=== PATIENT | female | born 1960 | race Caucasian/White ===

== ENCOUNTER 2016-09-08 19:59 | Emergency (ER) | payer MEDICAID ==
[~2016-09-08] VITALS: Ht 170.2 cm; Wt 117.9 kg
[~2016-09-08 19:59] MED LIST: CYCL10TA9 PO; LVT.05T; MULT1TAB63; NAPR-243 PO; NF-CIT200; OMG1KC
[2016-09-08] MEDS ORDERED: CEPH-507 PO (20:08)
--- NOTE | 2016-09-08 20:09 | ED Integumentary General ---
General Chief Complaint: Bite-Animal/Human/Insect Stated Complaint: BUG BITES Source: patient Exam Limitations: no limitations History of Present Illness Time seen by provider: 20:06 Initial Comments To ER with a complaint of bug bite to the right side of the neck and the left radial side of the forearm. Began yesterday. She believes they are spider bites so she did not see anything bite her. They're intensely itchy. Timing/Duration: yesterday Severity: mild Allergies and Home Medications Allergies Coded Allergies: No Known Drug Allergies (Verified Allergy, Unknown, 09/17/08) Home Medications Calcium Citrate 1 Each Tablet (Reported) Cyclobenzaprine Hcl 10 Mg Tablet #14 1 EACH PO TID PRN Prescribed by: SHAKIRA LONDON MD on 06/03/09 1632 Levothyroxine Sodium 50 Mcg Tab (Reported) Multivitamins 1 Ea Tablet (Reported) Naproxen 500 Mg Tablet #14 1 EACH PO BID Prescribed by: SHAKIRA LONDON MD on 06/03/09 1632 [place] 3 Polyunsat Fatty Acids 1,000 Mg Cap (Reported) Constitutional: see HPINo chills, No fever EENTM: see HPI Respiratory: no symptoms reported Cardiovascular: no symptoms reported Genitourinary: no symptoms reported Musculoskeletal: no symptoms reported Skin: see HPI Psychiatric/Neurological: No Symptoms Reported Endocrine: No Symptoms Reported Past Ktzsuvv-Wpthly-Vxezur Hx Patient Social History Recent Foreign Travel: No Contact w/Someone Who Travel: No Recent Hopitalizations: No Seasonal Allergies Seasonal Allergies: No Surgeries HX Surgeries: Yes (RIGHT ANKLE) Surgeries: Thyroidectomy Respiratory Hx Respiratory Disorders: No Cardiovascular Hx Cardiac Disorders: No Neurological Hx Neurological Disorders: Yes Neurological Disorders: Cerebral Palsy Reproductive System Hx Reproductive Disorders: No Genitourinary Hx Genitourinary Disorders: No Gastrointestinal Hx Gastrointestinal Disorders: No Musculoskeletal Hx Musculoskeletal Disorders: Yes (CEREBRAL PALSY) Endocrine Hx Endocrine Disorders: Yes HEENT HX ENT Disorders: Yes Psychosocial Hx Psychiatric Problems: No Blood Transfusions Hx Blood Disorders: No Physical Exam Vital Signs Capillary Refill : General Appearance: WD/WN no apparent distress HEENT: PERRL/EOMI normal ENT inspection Neck: non-tender full range of motion Respiratory: no respiratory distress no accessory muscle use Neurologic/Psychiatric: alert normal mood/affect Skin: normal color warm/dry Skin Problem Location: other (7 cm area of light erythema with serous drainage to the radial side of the distal left forearm. Mild induration. No purulence or fluctuance. There is a well demarcated area to the underside of her neck) Skin Problem Character: erythema Departure Impression Impression: Primary Impression: Insect bite Qualified Code: W57.XXXA - Bitten or stung by nonvenomous insect and other nonvenomous arthropods, initial encounter Disposition: HOME, SELF-CARE Condition: Stable Departure-Patient Inst. Decision time for Depature: 20:08 Referrals: JEAN CARLOS SOTO MD (PCP/Family) Primary Care Physician Patient Instructions: Insect Bites and Stings (DC) Add. Discharge Instructions: 1. Antibiotics as directed 2. Use Benadryl as needed for itching 3. This should improve over the course of the next 3 days All discharge instructions reviewed with patient and/or family. Voiced understanding. Scripts Cephalexin (Keflex)500 Mg [id number] Mg PO Q8H #21 CAP Prov:RODRIGO CENTENO APRN 09/08/16 RODRIGO CENTENO APRN Sep 08, 2016 20:09
[2016-09-08] MEDS ORDERED: diphenhydrAMINE 50 MG/ML INJ (BENADRYL) IM ONE (20:15)
[2016-09-08] MEDS ORDERED: DEXAMETHASONE PF 10 MG/ML (DECADRON) VIAL IM ONE (20:15)
[2016-09-08 20:20] VITALS: BP 145/75
== END 2016-09-08 20:21 | disposition home or self-care (01) ==
LOC: EDUNIT# 19:59 → ER 20:00
DX: S50.862A Insect bite (nonvenomous) of left forearm, initial encounter (principal); S10.86XA Insect bite of other specified part of neck, initial encounter; G80.9 Cerebral palsy, unspecified; W57.XXXA Bitten or stung by nonvenomous insect and other nonvenomous arthropods, initial encounter; Y92.009 Unspecified place in unspecified non-institutional (private) residence as the place of occurrence of the external cause; Y99.8 Other external cause status
CPT/HCPCS: 96372; 99283

== ENCOUNTER 2016-10-10 22:38 | Emergency (ER) | payer MEDICAID ==
[~2016-10-10] VITALS: Ht 170.2 cm; Wt 117.9 kg
[~2016-10-10 22:38] MED LIST changes: +CEPH-507 PO
[2016-10-10] MEDS ORDERED: HYDR25TA4 PO (23:16)
[2016-10-10] MEDS ORDERED: NS IV 1000 ML 1,000 ML IV ONE (23:33)
[2016-10-10 23:54] LABS: BASOPHILS % (AUTO) 0 % (0-10); EOSINOPHILS % (AUTO) 0 % (0-10); LYMPHOCYTES # (AUTO) 0.5 X 10^3 (1.0-4.0); LYMPHOCYTES % (AUTO) 5 % (12-44); MEAN CORPUSCULAR HEMOGLOBIN 31 PG (25-34); MEAN CORPUSCULAR HGB CONC 36 G/DL (32-36); MEAN CORPUSCULAR VOLUME 87 FL (80-99); MEAN PLATELET VOLUME 9.5 FL (7.4-10.4); MONOCYTES # (AUTO) 0.4 X 10^3 (0.0-1.0); MONOCYTES % (AUTO) 4 % (0-12); NEUTROPHILS # (AUTO) 10.4 X 10^3 (1.8-7.8); NEUTROPHILS % (AUTO) 91 % (42-75); PLATELET COUNT 324 10^3/uL (130-400); RED BLOOD COUNT 5.07 10^6/uL (4.35-5.85); RED CELL DISTRIBUTION WIDTH 13.4 % (10.0-14.5); WHITE BLOOD COUNT 11.3 10^3/uL (4.3-11.0)
[2016-10-11 00:07] LABS: INR 0.9 (0.8-1.4); PROTHROMBIN TIME PATIENT 12.2 SEC (12.2-14.7)
[2016-10-11 00:11] LABS: BAND NEUTROPHILS 2 %; BASOPHILS % (MANUAL) 0 %; EOSINOPHILS % (MANUAL) 0 %; LYMPHOCYTES % (MANUAL) 2 %; NEUTROPHILS % (MANUAL) 93 %; REACTIVE LYMPHOCYTES 1 %
[2016-10-11 00:23] LABS: ALANINE AMINOTRANSFERASE 22 U/L (0-55); ALBUMIN 4.2 G/DL (3.2-4.5); ANION GAP 13 MMOL/L (5-14); ASPARTATE AMINO TRANSFERASE 20 U/L (5-34); BILIRUBIN,TOTAL 1.1 MG/DL (0.1-1.0); BLOOD UREA NITROGEN 10 MG/DL (7-18); BUN/CREATININE RATIO 12; CARBON DIOXIDE 21 MMOL/L (21-32); CHLORIDE 104 MMOL/L (98-107); CREATININE SERUM 0.83 MG/DL (0.60-1.30); GFR ESTIMATED > 60; GLUCOSE 126 MG/DL (70-105); POTASSIUM 3.4 MMOL/L (3.6-5.0); SODIUM 138 MMOL/L (135-145); TOTAL PROTEIN 7.4 G/DL (6.4-8.2)
[2016-10-11] MEDS ORDERED: KETOROLAC 30 MG/ML VIAL IVP ONE (01:00)
[2016-10-11] MEDS ORDERED: ONDANSETRON 4 MG/2 ML (SDV) Z0FRAN IVP ONE (01:00)
[2016-10-11 01:07] LABS: BILIRUBIN,URINE NEGATIVE (NEGATIVE); KETONES,URINE 1+ (NEGATIVE); LEUKOCYTE ESTERASE ,URINE 1+ (NEGATIVE); NITRITE,URINE NEGATIVE (NEGATIVE); PH,URINE 7 (5-9); PROTEIN,URINE 3+ (NEGATIVE); UROBILINOGEN,URINE NORMAL (NORMAL)
[2016-10-11 01:14] LABS: WBC,URINE 0-2 /HPF
[2016-10-11] MEDS ORDERED: NS IV 500 ML 500 ML IV ONE (01:31)
[2016-10-11] MEDS ORDERED: RX-ONDANSETRON 4 MG ODT (ZOFRAN) PPK #4 PO STA (01:31)
[2016-10-11] MEDS ORDERED: ONDA4TAB8 SL (01:41)
--- NOTE | 2016-10-11 01:42 | ED General ---
General Chief Complaint: Cough/Cold/Flu Symptoms Stated Complaint: FLU Nursing Triage Note: C/O COUGH, INTERMITTANT FEVER, NAUSEA/VOMITTING X1 WEEK. Nursing Sepsis Screen: No Definite Risk Source of Information: Patient Exam Limitations: No Limitations History of Present Illness Time Seen by Provider: 23:26 Initial Comments This 56-year-old woman presents to the emergency room with acute illness for greater than one week. Symptoms include vomiting, myalgia, cough, fever, and intermittent blurry vision. She is noted to be tachycardic with heart rate in the 120s on assessment. Patient has been taking only NyQuil at home. Allergies and Home Medications Allergies Coded Allergies: No Known Drug Allergies (Verified Allergy, Unknown, 09/17/08) Home Medications Hydrochlorothiazide 25 Mg Tablet, 1 TAB PO UD, #90 (Reported) Levothyroxine Sodium 50 Mcg Tab, (Reported) Ondansetron 4 Mg Tab.rapdis, 4 MG SL Q4H PRN for NAUSEA/VOMITING, #10 Prescribed by: SINAN VILLEGAS on 10/11/16 0141 Constitutional: see HPI EENTM: no symptoms reported Respiratory: see HPI Cardiovascular: see HPI Gastrointestinal: see HPI Genitourinary: no symptoms reported : No Musculoskeletal: no symptoms reported Skin: no symptoms reported Psychiatric/Neurological: See HPI Hematologic/Lymphatic: No Symptoms Reported Past Tdwqkog-Jsqrzk-Qfjgpu Hx Patient Social History Alcohol Use: Denies Use Recreational Drug Use: No Smoking Status: Never a Smoker 2nd Hand Smoke Exposure: No Recent Foreign Travel: No Contact w/Someone Who Travel: No Recent Infectious Disease Expo: No Recent Hopitalizations: No Seasonal Allergies Seasonal Allergies: No Surgeries HX Surgeries: Yes (RIGHT ANKLE) Surgeries: Thyroidectomy Respiratory Hx Respiratory Disorders: No Cardiovascular Hx Cardiac Disorders: No Neurological Hx Neurological Disorders: Yes Neurological Disorders: Cerebral Palsy Reproductive System Hx Reproductive Disorders: No Genitourinary Hx Genitourinary Disorders: No Gastrointestinal Hx Gastrointestinal Disorders: No Musculoskeletal Hx Musculoskeletal Disorders: Yes (CEREBRAL PALSY) Endocrine Hx Endocrine Disorders: Yes Endocrine Disorders: Hypothyroidsim HEENT HX ENT Disorders: Yes Cancer Hx Cancer: No Psychosocial Hx Psychiatric Problems: No Blood Transfusions Hx Blood Disorders: No Physical Exam Vital Signs Vital Sign - Last 12Hours 10/10/16 23:57 O2 Flow Rate 2.00 Capillary Refill : Less Than 3 Seconds General Appearance: WD/WN, Mild Distress HEENT: PERRL/EOMI, TMs Normal, Normal ENT Inspection, Pharynx Normal Neck: Normal Inspection Respiratory: Lungs Clear, Normal Breath Sounds Cardiovascular: No Edema, No Murmur, Tachycardia Gastrointestinal: Normal Bowel Sounds, No Organomegaly, No Pulsatile Mass, Non Tender, Soft Extremity: Normal Inspection Neurologic/Psychiatric: Alert, Oriented x3, No Motor/Sensory Deficits, Normal Mood/Affect, pipe stem sawyer II-XII Norm as Tested, Other (Neurologic exam normal except for chronic deficits related to cerebral palsy) Skin: Normal Color, Warm/Dry Focused Exam Lactic Acid Level Progress/Results/Core Measures Results/Orders Lab Results Laboratory Tests Test 10/10/16 01:01 10/10/16 23:45 Range/Units Urine Color YELLOW Urine Clarity SLIGHTLY CLOUDY Urine pH 7 5-9 Urine Specific [place] 1.010 L 1.016-1.022 Urine Protein 3+ H NEGATIVE Urine Glucose (UA) NEGATIVE NEGATIVE Urine Ketones 1+ H NEGATIVE Urine Nitrite NEGATIVE NEGATIVE Urine Bilirubin NEGATIVE NEGATIVE Urine Urobilinogen NORMAL NORMAL MG/DL Urine Leukocyte Esterase 1+ H NEGATIVE Urine RBC (Auto) 2+ H NEGATIVE Urine RBC 0-2 /HPF Urine WBC 0-2 /HPF Urine Squamous Epithelial Cells 10-25 H /HPF Urine Crystals NONE /LPF Urine Bacteria MODERATE H /HPF Urine Casts PRESENT /LPF Urine Hyaline Casts 5-10 H /LPF Urine Mucus MODERATE H /LPF Urine Culture Indicated YES White Blood Count 11.3 H 4.3-11.0 10^3/uL Red Blood Count 5.07 4.35-5.85 10^6/uL Hemoglobin 15.6 11.5-16.0 G/DL Hematocrit 44 35-52 % Mean Corpuscular Volume 87 80-99 FL Mean Corpuscular Hemoglobin 31 25-34 PG Mean Corpuscular Hemoglobin Concent 36 32-36 G/DL Red Cell Distribution Width 13.4 10.0-14.5 % Platelet Count 324 130-400 10^3/uL Mean Platelet Volume 9.5 7.4-10.4 FL Neutrophils (%) (Auto) 91 H 42-75 % Lymphocytes (%) (Auto) 5 L 12-44 % Monocytes (%) (Auto) 4 0-12 % Eosinophils (%) (Auto) 0 0-10 % Basophils (%) (Auto) 0 0-10 % Neutrophils # (Auto) 10.4 H 1.8-7.8 X 10^3 Lymphocytes # (Auto) 0.5 L 1.0-4.0 X 10^3 Monocytes # (Auto) 0.4 0.0-1.0 X 10^3 Eosinophils # (Auto) 0.0 0.0-0.3 10^3/uL Basophils # (Auto) 0.0 0.0-0.1 10^3/uL Neutrophils % (Manual) 93 % Lymphocytes % (Manual) 2 % Monocytes % (Manual) 2 % Eosinophils % (Manual) 0 % Basophils % (Manual) 0 % Band Neutrophils 2 % Reactive Lymphocytes 1 % Blood Morphology Comment NORMAL Prothrombin Time 12.2 12.2-14.7 SEC INR Comment 0.9 0.8-1.4 Activated Partial Thromboplast Time 26 24-35 SEC Sodium Level 138 135-145 MMOL/L Potassium Level 3.4 L 3.6-5.0 MMOL/L Chloride Level 104 98-107 MMOL/L Carbon Dioxide Level 21 21-32 MMOL/L Anion Gap 13 5-14 MMOL/L Blood Urea Nitrogen 10 7-18 MG/DL Creatinine 0.83 0.60-1.30 MG/DL Estimat Glomerular Filtration Rate > 60 BUN/Creatinine Ratio 12 Glucose Level 126 H 70-105 MG/DL Lactic Acid Level 1.27 0.50-2.00 MMOL/L Calcium Level 9.0 8.5-10.1 MG/DL Total Bilirubin 1.1 H 0.1-1.0 MG/DL Aspartate Amino Transf (AST/SGOT) 20 5-34 U/L Alanine Aminotransferase (ALT/SGPT) 22 0-55 U/L Alkaline Phosphatase 92 40-136 U/L Total Protein 7.4 6.4-8.2 G/DL Albumin 4.2 3.2-4.5 G/DL Micro Results Microbiology 10/10/16 Influenza Types A,B Antigen (JOELLE) - Final, Complete My Orders Orders - SINAN DE LA VEGA MD Cbc With Automated Diff (10/10/16 23:33) Comprehensive Metabolic Panel (10/10/16 23:33) Lactic Acid Analyzer (10/10/16 23:33) Blood Culture (10/10/16 23:33) Ua Culture If Indicated (10/10/16 23:33) Protime With Inr (4/2/17 23:33) Partial Thromboplastin Time (10/10/16 23:33) O2 (10/10/16 23:33) Saline Lock/Iv-Start (10/10/16 23:33) Vital Signs Adult Sepsis Patie Q1HR (10/10/16 23:33) Remove Rings In Anticipation O (10/10/16 23:33) Influenza A And B Antigens (10/10/16 23:33) Ns Iv 1000 Ml (Sodium Chloride 0.9%) (10/10/16 23:33) Manual Differential (10/10/16 23:45) Chest Pa/Lat (2 View) (10/11/16 00:01) Ondansetron Injection (Zofran Injectio (10/11/16 01:00) Ketorolac Injection (Toradol Injection) (10/11/16 01:00) Urine Culture (10/10/16 01:01) Rx-Ondansetron Po (Rx-Zofran Po) (10/11/16 01:31) Ns Iv 500 Ml (Sodium Chloride 0.9%) (10/11/16 01:31) Potassium Chloride (Tablet) (Klor Con Ta (10/11/16 01:45) Medications Given in ED Current Medications Medications Dose Ordered Sig/Radha Route Start Time Stop Time Status Last Admin Dose Admin Ketorolac Tromethamine 30 mg ONCE ONCE IVP 10/11/16 01:00 10/11/16 01:01 DC 10/11/16 00:57 30 MG Ondansetron HCl 8 mg ONCE ONCE IVP 10/11/16 01:00 10/11/16 01:01 DC 10/11/16 00:57 8 MG Potassium Chloride 20 meq ONCE ONCE PO 10/11/16 01:45 10/11/16 01:46 DC 10/11/16 01:39 20 MEQ Sodium Chloride 500 ml @ 0 mls/hr Q0M ONCE IV 10/11/16 01:31 10/11/16 01:35 DC 10/11/16 01:39 0 MLS/HR Sodium Chloride 1,000 ml @ 0 mls/hr Q0M ONCE IV 10/10/16 23:33 10/10/16 23:36 DC 10/10/16 23:56 0 MLS/HR Vital Signs/I&O Vital Sign - Last 12Hours 10/10/16 10/10/16 10/10/16 10/11/16 23:17 23:17 23:57 02:17 Temp 98.3 97.7 Pulse 99 98 Resp 18 18 B/P (MAP) 133/97 Pulse Ox 95 97 99 O2 Delivery Room Air Room Air Nasal Cannula O2 Flow Rate 2.00 Blood Pressure Mean: 109 Progress Note : Progress Note Patient received 1500 mL saline bolus which improved her tachycardia. Pain was treated with Toradol with good results. Zofran was given for nausea via IV route and a take-home pack was dispensed. Patient was feeling much improved. Influenza screen was negative. Mild hypokalemia was replaced orally. Diagnostic Imaging Diagonstic Imaging: Xray Plain Films/CT/US/NM/MRI: chest Comments Chest x-ray viewed by me. Report not yet available. No acute abnormalities appreciated. Departure Impression Impression: Primary Impression: Influenza-like symptoms Additional Impression: Nausea and vomiting Qualified Codes: R11.2 - Nausea with vomiting, unspecified Disposition: HOME, SELF-CARE Condition: Improved Departure-Patient Inst. Decision time for Depature: 01:30 Referrals: JEAN CARLOS SOTO MD (PCP/Family) Primary Care Physician Patient Instructions: Nausea and Vomiting, Adult Add. Discharge Instructions: You may take ibuprofen up to 800 mg every 8 hours as needed for pain or fever. Add Tylenol up to 1000 mg every 6 hours as needed for additional pain or fever relief. Stay well-hydrated. Start with a clear liquid diet and gradually advance your diet with small quantities of bland food as tolerated. Use Zofran (ondansetron) dissolved under the tongue every 4 hours as needed for nausea. Follow-up with your primary care provider later this week. Return to the ER if symptoms worsen. All discharge instructions reviewed with patient and/or family. Voiced understanding. Scripts Ondansetron (Zofran Odt) 4 Mg Tab.rapdis 4 MG SL Q4H Y for NAUSEA/VOMITING, #10 TAB Prov: SINAN DE LA VEGA MD 10/11/16 SINAN DE LA VEGA MD Oct 11, 2016 01:42
[2016-10-11] MEDS ORDERED: KCL 10 MEQ TAB (MICRO K) PO ONE (01:45)
[2016-10-11 02:17] VITALS: BP 126/87
--- NOTE | 2016-10-11 07:04 | Diagnostic Imaging Report ---
INDICATION: Cough and congestion x1 week. TECHNIQUE: Two view chest 12:37 AM CORRELATION STUDY: 06/03/2009 FINDINGS: Heart size, mediastinum, and vasculature overall relatively stable. Lungs are clear. No infiltrate. Unchanged slight asymmetric elevation of the right hemidiaphragm. Mild multilevel degenerative changes of the thoracic spine. IMPRESSION: 1. No radiographic evidence for acute abnormality of the chest. Dictated by: Dictated on workstation # [id number]
--- OUTSIDE RECORDS SUMMARY | 2016-11-14 05:03 | XMS REPORT ---
Author Author JEAN CARLOS SOTO [facility] eClinicalWorks Address Unknown Phone Unavailable Care Team Providers Care Retread Supervisor Name Role Phone JEAN CARLOS SOTO CP Unavailable Allergies, Adverse Reactions, Alerts Substance Reaction Event Type N.K.D.A. Info Not Available Non Drug Allergy Problems Problem Type Condition Code Onset Dates Condition Status Problem Hypothyroidism E03.9 Active Problem Essential hypertension I10 Active Problem Obesity E66.9 Active Assessment Hypothyroidism E03.9 Active Problem Cerebral palsy G80.9 Active Assessment Essential hypertension I10 Active Medications Medication Code System Code Instructions Start Date End Date Status Dosage Levothyroxine Sodium NDC 93478646541 137 MCG Orally Once a day 1 tablet Hydrochlorothiazide NDC [address]-36 25 MG Orally Once a day Feb 12, 2016 1 tablet Potassium NDC 0 10 Orally qd Feb 12, 2016 1 Procedures Procedure Coding System Code Date VENIPUNCT, ROUTINE* CPT-4 35269 Feb 12, 2016 Office Visit, Est Pt., Level 3 CPT-4 18092 Feb 12, 2016 [facility] CPT-4 NOBLL Feb 12, 2016 Vital Signs Date/Time: Feb 12, 2016 Cardiac Monitoring Heart Rate 98 bpm Weight 272 lbs Height 66 in BMI 43.90 Index Blood Pressure Diastolic 84 mmHg Blood Pressure Systolic 132 mmHg Results No Known Results Summary Purpose eClinicalWorks Submission
--- OUTSIDE RECORDS SUMMARY | 2016-11-14 05:03 | XMS REPORT ---
Author Author PHYLLIS TIRADO [facility] eClinicalWorks Address Unknown Phone Unavailable Care Team Providers Care Ranch Cook Name Role Phone PHYLLIS TIRADO CP Unavailable Allergies No Known Allergies Problems Problem Type Condition Code Onset Dates Condition Status Problem Obesity E66.9 Active Problem Hypothyroidism E03.9 Active Problem Hypothyroidism, unspecified E03.9 Active Assessment Hypothyroidism, unspecified E03.9 Active Problem Essential hypertension I10 Active Problem Cerebral palsy G80.9 Active Medications No Known Medications Results No Known Results Summary Purpose eClinicalWorks Submission
--- OUTSIDE RECORDS SUMMARY | 2016-11-14 05:03 | XMS REPORT | Continuity of Care Document ---
Author Author [facility] Address Unknown Phone Unavailable Allergies Medications Problems Date Dx Coded Attending Type Code Diagnosis Diagnosed By 06/14/2012 WES ROQUE MD 244.9 HYPOTHYROIDISM 06/14/2012 WES ROQUE MD 278.00 OBESITY 06/14/2012 WES ROQUE MD 401.1 ESSENTIAL HYPERTENSION BENIGN 06/14/2012 WES ROQUE MD V76.12 Mammogram Screening 06/14/2012 JEAN CARLOS SOTO MD 244.9 HYPOTHYROIDISM 06/14/2012 JEAN CARLOS SOTO MD 278.00 OBESITY 06/14/2012 JEAN CARLOS SOTO MD 401.1 ESSENTIAL HYPERTENSION BENIGN 06/14/2012 JEAN CARLOS SOTO MD V76.12 Mammogram Screening 06/14/2012 244.9 HYPOTHYROIDISM 06/14/2012 278.00 OBESITY 06/14/2012 401.1 ESSENTIAL HYPERTENSION BENIGN 06/14/2012 V76.12 Mammogram Screening 06/14/2012 WES ROQUE MD 244.9 HYPOTHYROIDISM 06/14/2012 WES ROQUE MD 278.00 OBESITY 06/14/2012 WES ROQUE MD 401.1 ESSENTIAL HYPERTENSION BENIGN 06/14/2012 WES ROQUE MD V76.12 Mammogram Screening 06/14/2012 COONEY DO, TIM K 244.9 HYPOTHYROIDISM 06/14/2012 COONEY DO, TIM K 278.00 OBESITY 06/14/2012 COONEY DO, TIM K 401.1 ESSENTIAL HYPERTENSION BENIGN 06/14/2012 COONEY DO, TIM K V76.12 Mammogram Screening 06/14/2012 COONEY DO, TIM K 244.9 HYPOTHYROIDISM 06/14/2012 COONEY DO, TIM K 278.00 OBESITY 06/14/2012 COONEY DO, TIM K 401.1 ESSENTIAL HYPERTENSION BENIGN 06/14/2012 COONEY DO, TIM K V76.12 Mammogram Screening 06/27/2012 JEAN CARLOS SOTO MD 276.8 HYPOKALEMIA 06/27/2012 276.8 HYPOKALEMIA 06/27/2012 MYA KATZ, WES Pérez 276.8 HYPOKALEMIA 06/27/2012 COONEY BUTCH BRADYA K 276.8 HYPOKALEMIA 06/27/2012 COONEY DO TIM K 276.8 HYPOKALEMIA 10/30/2013 COONEY DO TIM K 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 10/30/2013 COONEY DO TIM K V70.0 EXAM - ROUTINE H&P 10/30/2013 COONEY DO TIM K V76.10 BREAST CANCER SCREENING 10/30/2013 COONEY DO TIM K V76.51 COLON CANCER SCREENING 10/30/2013 COONEY DO TIM K V82.81 SPECIAL SCREENING FOR OSTEOPOROSIS 10/30/2013 COONEY DO TIM K 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 10/30/2013 COONEY DO TIM K V70.0 EXAM - ROUTINE H&P 10/30/2013 COONEY DO TIM K V76.10 BREAST CANCER SCREENING 10/30/2013 COONEY DO TIM K V76.51 COLON CANCER SCREENING 10/30/2013 CONOEY DO TIM K V82.81 SPECIAL SCREENING FOR OSTEOPOROSIS 06/03/2014 BUTCH COONEY DOA K 704.00 ALOPECIA UNSPECIFIED 06/03/2014 BUTCH COONEY DOA K 780.4 DIZZINESS AND VERTIGO Procedures Code Description [place] [address] ROUTINE VENIPUNCTURE 06/15/2012 56152 MAMMOGRAM, SCREENING 06/15/2012 72345 A1C (IN-HOUSE) 02614 LIPID PANEL 06/15 38294 CBC 06/15/2012 72816 CMP 06/15/2012 [id number] GFR CALC (RESULT ONLY) 06/15/2012 76633 T4 06/16/2012 34892 TSH 06/16/2012 26946 T3 TOTAL 2011 47455 ROUTINE VENIPUNCTURE 06/27/2012 30947 BMP 06/27/2012 16916 MAGNESIUM 2011 [id number] GFR CALC (RESULT ONLY) 06/27/2012 44043 ROUTINE VENIPUNCTURE 09/28/2012 96755 BMP 09/29/2012 27739 MAGNESIUM 2012 [id number] GFR CALC (RESULT ONLY) 09/29/2012 88076 ROUTINE VENIPUNCTURE 06/03/2014 11134 CMP 06/03/2014 37606 LIPID PANEL 06/03 64797 TSH 06/03/2014 88268 CBC 06/03/2014 Results Encounters ACCT No. Visit Date/Time Discharge Status Pt. Type Provider Facility Loc./Unit Complaint [id number] 06/03/2014 09:52:00 06/03/2014 23: 59:59 CLS [place]patient TIM COONEY DO [id number] 10/30/2013 15:35:00 10/30/2013 23: 59:59 CLS Outpatient TIM COONEY DO [id number] 09/28/2012 16:49:00 09/28/2012 23: 59:59 CLS Outpatient WES ROQUE MD [id number] 06/27/2012 13:49:00 06/27/2012 23: 59:59 CLS Outpatient JEAN CARLOS SOTO MD [id number] 06/15/2012 08:24:00 06/15/2012 23: 59:59 CLS Outpatient WES ROQUE MD [id number] 06/14/2012 08:45:00 06/14/2012 23: 59:59 CLS Outpatient [id number] 06/14/2012 09:46:36 RECURRING
--- OUTSIDE RECORDS SUMMARY | 2016-11-14 05:04 | XMS REPORT ---
Author Author JEAN CARLOS SOTO Organization eClinicalWorks Address Unknown Phone Unavailable Care Team Providers Care Title Inspector Name Role Phone JEAN CARLOS SOTO CP Unavailable Allergies No Known Allergies Problems Problem Type Condition Code Onset Dates Condition Status Problem Hypothyroidism E03.9 Active Problem Essential hypertension I10 Active Problem Obesity E66.9 Active Problem Cerebral palsy G80.9 Active Medications No Known Medications Results No Known Results Summary Purpose eClinicalWorks Submission
--- OUTSIDE RECORDS SUMMARY | 2016-11-14 05:04 | XMS REPORT ---
Author Author PHYLLIS TIRADO [facility] eClinicalWorks Address Unknown Phone Unavailable Care Team Providers Care Hydrometallurgical Engineer Name Role Phone PHYLLIS TIRADO CP Unavailable Allergies, Adverse Reactions, Alerts Substance [...] Instructions Start Date End Date Status Dosage Cozaar [facility] [address]-62 25 MG Orally Once a day May 21, 2015 1 tablet Levothyroxine Sodium [facility] [address]-36 150 MCG Orally Once a day May 21, 2015 1 tablet Procedures Procedure Coding System Code Date ASSAY, TRIIODOTHYRONINE (T3) CPT-4 02666 May 21, 2015 ASSAY OF FREE THYROXINE CPT-4 68907 May 21, 2015 ASSAY THYROID STIM HORMONE CPT-4 67606 May 21, 2015 Office Visit, Est Pt., Level 3 CPT-4 03659 May 21, 2015 VENIPUNCT, ROUTINE* CPT-4 01634 May 21, 2015 Vital Signs Date/Time: May 21, 2015 Temperature 97.4 F Weight 264.8 lbs Height 66 in BMI 42.74 Index Blood Pressure Diastolic 108 mmHg Blood Pressure Systolic 142 mmHg Cardiac Monitoring Heart Rate 92 bpm Results Name Result Date Reference Range Unit Abnormality Flag ROUTINE VENIPUNCTURE T3 TOTAL Summary Purpose eClinicalWorks Submission
--- OUTSIDE RECORDS SUMMARY | 2016-11-14 05:04 | XMS REPORT ---
Author Author JEAN CARLOS SOTO Organization eClinicalWorks Address Unknown Phone Unavailable Care Team Providers Care Chemical Mixer Name Role Phone JEAN CARLOS SOTO CP Unavailable Allergies No Known Allergies Problems Problem Type Condition Code Onset Dates Condition Status Problem Hypothyroidism E03.9 Active Problem Essential hypertension I10 Active Problem Obesity E66.9 Active Problem Cerebral palsy G80.9 Active Medications No Known Medications Results No Known Results Summary Purpose eClinicalWorks Submission
--- OUTSIDE RECORDS SUMMARY | 2016-11-14 05:04 | XMS REPORT ---
Author Author JEAN CARLOS SOTO [facility] eClinicalWorks Address Unknown Phone Unavailable Care Team Providers Care Club Car Attendant Name Role Phone JEAN CARLOS SOTO CP Unavailable Allergies No Known Allergies Problems Problem Type Condition Code Onset Dates Condition Status Problem Hypothyroidism E03.9 Active Problem Essential hypertension I10 Active Problem Obesity E66.9 Active Problem Cerebral palsy G80.9 Active Medications Medication Code System Code Instructions Start Date End Date Status Dosage Levothyroxine Sodium [facility] [address]-36 150 MCG Orally every other day, alternate with 137 mcg Feb 13, 2016 1 tablet Levothyroxine Sodium [facility] 62823662877 137 MCG Orally every other day, alternate with the 150 mcg 1 tablet Results No Known Results Summary Purpose eClinicalWorks Submission
--- OUTSIDE RECORDS SUMMARY | 2016-11-14 05:04 | XMS REPORT ---
Author JEAN CARLOS Mcclellan [facility] eClinicalWorks Address Unknown Phone Unavailable Care Team Providers Care Fan Mail Editor Name Role Phone JEAN CARLOS SOTO CP Unavailable Allergies, Adverse Reactions, Alerts Substance Reaction Event Type N.K.D.A. Info Not Available Non Drug Allergy Problems Problem Type Condition Code Onset Dates Condition Status Assessment Hyperlipidemia, unspecified hyperlipidemia type E78.5 Active Problem Obesity E66.9 Active Problem Hypothyroidism E03.9 Active Problem Hyperlipidemia, unspecified hyperlipidemia type E78.5 Active Assessment Essential hypertension I10 Active Assessment Hypothyroidism E03.9 Active Problem Essential hypertension I10 Active Problem Cerebral palsy G80.9 Active Medications Medication Code System Code Instructions Start Date End Date Status Dosage Levothyroxine Sodium [facility] [address]-36 150 MCG Orally every other day, alternate with 137 mcg Feb 13, 2016 1 tablet Co Q 10 NDC 12362-31393 100 MG Orally Once a day 1 capsule with a meal Levothyroxine Sodium NDC 82380945862 137 MCG Orally every other day, alternate with the 150 mcg 1 tablet Potassium NDC 0 10 Orally qd Feb 12, 2016 1 Hydrochlorothiazide [facility] [address]-38 25 MG Orally Once a day Feb 12, 2016 1 tablet Procedures Procedure Coding System Code Date VENIPUNCT, ROUTINE* CPT-4 91872 May 21, 2016 Office Visit, Est Pt., Level 2 CPT-4 96656 May 21, 2016 LAB NOT BILLED BY [facility] CPT-4 NOBLL May 21, 2016 Vital Signs Date/Time: May 21, 2016 Cardiac Monitoring Heart Rate 84 bpm Weight 273.5 lbs Height 66 in BMI 44.14 Index Blood Pressure Diastolic 108 mmHg Blood Pressure Systolic 144 mmHg Results Name Result Date Reference Range Unit Abnormality Flag LIPID PANEL ----HDL Cholesterol 53 62746376 >39 mg/dL ----VLDL Cholesterol [place] 27 50815607 5-40 mg/dL ----LDL Cholesterol Calc 97 21904693 0-99 mg/dL ----Cholesterol, Total 177 91250483 100-199 mg/dL ----Triglycerides 135 47546336 0-149 mg/dL CMP ----Globulin, Total 2.4 20160521 1.5-4.5 g/dL ----eGFR If Africn Am 113 [id number] >59 mL/min/1.73 ----eGFR If NonAfricn Am 98 [id number] >59 mL/min/1.73 ----Albumin, Serum 4.3 20160521 3.5-5.5 g/dL ----Sodium, Serum 139 20160521 136-144 mmol/L ----Protein, Total, Serum 6.7 20160521 6.0-8.5 g/dL ----BUN/Creatinine Ratio 7 20160521 9-23 L ----Calcium, Serum 9.1 20160521 8.7-10.2 mg/dL ----AST (SGOT) 29 20160521 0-40 IU/L ----Glucose, Serum 109 20160521 65-99 mg/dL H ----Alkaline Phosphatase, S 82 20160521 39-117 IU/L ----Bilirubin, Total 0.7 20160521 0.0-1.2 mg/dL ----Creatinine, Serum 0.68 20160521 0.57-1.00 mg/dL ----A/G Ratio 1.8 20160521 1.1-2.5 ----BUN 5 20160521 6-24 mg/dL L ----Carbon Dioxide, Total 22 20160521 18-29 mmol/L ----ALT (SGPT) 39 20160521 0-32 IU/L H ----Potassium, Serum 4.2 20160521 3.5-5.2 mmol/L ----Chloride, Serum 102 20160521 97-106 mmol/L ROUTINE VENIPUNCTURE TSH ----TSH 0.276 57590059 0.450-4.500 uIU/mL L Summary Purpose eClinicalWorks Submission
--- OUTSIDE RECORDS SUMMARY | 2016-11-14 05:04 | XMS REPORT ---
Author Author JEAN CARLOS SOTO Organization eClinicalWorks Address Unknown Phone Unavailable Care Team Providers Care Manager Production Name Role Phone JEAN CARLOS SOTO CP Unavailable Allergies No Known Allergies Problems Problem Type Condition Code Onset Dates Condition Status Problem Hypothyroidism E03.9 Active Problem Essential hypertension I10 Active Problem Obesity E66.9 Active Problem Cerebral palsy G80.9 Active Medications Medication Code System Code Instructions Start Date End Date Status Dosage Hydrochlorothiazide [facility] [address]-56 25 MG Orally Once a day Feb 12, 2016 1 tablet Results No Known Results Summary Purpose eClinicalWorks Submission
== END 2016-10-11 02:15 | disposition home or self-care (01) ==
LOC: EDUNIT# 22:38 → ER 22:42
DX: J10.2 Influenza due to other identified influenza virus with gastrointestinal manifestations (principal); G80.9 Cerebral palsy, unspecified
CPT/HCPCS: 36415; 71020; 80053; 81000; 83605; 85007; 85027; 85610; 85730; 87040; 87088; 87804; 96361; 96374; 96375

== ENCOUNTER → 2017-04-27 | Outpatient (CLI) | payer MEDICAID ==
[~2017-04-27] MED LIST changes: +HYDR25TA4 PO; +ONDA4TAB8 SL
--- NOTE | 2017-04-27 18:02 | Diagnostic Imaging Report ---
PROCEDURE: US Thyroid. TECHNIQUE: Multiple real-time grayscale images were obtained of the thyroid in various projections. INDICATION: Thyromegaly. FINDINGS: The right thyroid lobe is 6.9 x 3.1 x 3 cm. The left lobe is 6.7 x 2.9 x 2.9 cm. There is heterogeneous thyroid parenchyma and mildly increased vascularity with no discrete focal mass. IMPRESSION: Heterogeneous slightly hypervascular enlarged thyroid gland. This could be a sequela of thyroiditis or related to multinodular goiter with no discrete dominant nodules. Dictated by: Dictated on workstation # [id number]
== END ==
LOC: RAD 14:41
PROVIDERS: ATTEND Nurse Practitioner Family
DX: E01.0 Iodine-deficiency related diffuse (endemic) goiter (principal)
CPT/HCPCS: 76536

== ENCOUNTER 2017-12-18 14:51 | Emergency (ER) | payer MEDICAID ==
[~2017-12-18] VITALS: Ht 170.2 cm; Wt 117.9 kg
--- OUTSIDE RECORDS SUMMARY | 2017-12-18 15:00 | XMS REPORT ---
Author Author MAYRA SANDERS [facility] Address [address] [place] [address] Care Team Providers Care Estimator Name Role Phone TOMMY MAYRA Unavailable PROBLEMS Type Condition ICD9-CM Code YCN00-CQ Code Onset Dates Condition Status SNOMED Code Problem History of goiter Z86.39 Active 6291637 Problem History of hypokalemia Z86.39 Active 34875574 Problem Cerebral palsy G80.9 Active 830421638 Problem Elevated TSH R94.6 Active 571295167 Problem Hypothyroidism E03.9 Active 80772788 Problem Essential hypertension I10 Active 72571072 ALLERGIES No Information ENCOUNTERS Encounter Location Date Diagnosis [place] [id number] [place] [address] November, Hypothyroidism E03.9 [facility] [id number] [place] [address] 7252 November, Essential hypertension I10 ; Hypothyroidism E03.9 ; History of hypokalemia Z86.39 and BMI 45.0-49.9, adult Z68.42 [place] [id number] [place] [address] November, [place] [id number] [place] [address] 10033- 2245 Jun, [place] [address] [id number] [place] [address] 9177 May, History of hypokalemia Z86.39 [place] [id number] [place] [address] 83925- 5135 Apr, Hypothyroidism E03.9 [place] [address] [address] Apr, Essential hypertension I10 ; Hypothyroidism E03.9 ; Cerebral palsy G80.9 ; History of hypokalemia Z86.39 and History of goiter Z86.39 [facility] [id number] [place] [address] 51583- 6474 Dec, Hypothyroidism E03.9 [facility] [id number] [place] [address] 00151- 1202 Dec, Hypothyroidism, unspecified E03.9 [facility] [id number] [place] [address] 88620- 7067 13 Dec, 2016 Morbid obesity due to excess calories E66.01 ; Essential hypertension I10 ; Cerebral palsy G80.9 and Hyperlipidemia, unspecified hyperlipidemia type E78.5 [facility] [id number] [place] [address] 06353- 9036 Oct, Hyperlipidemia, unspecified hyperlipidemia type E78.5 [place] [id number] [place] [address] 34939- 9912 May, Essential hypertension I10 ; Hypothyroidism E03.9 and Hyperlipidemia, unspecified hyperlipidemia type E78.5 [facility] [id number] [place] [address] 65879- 2498 May, [facility] [id number] [place] [address] 83560- 9383 May, [facility] [id number] [place] [address] 20629- 2667 Feb, [facility] [id number] [place] [address] 33794- 3802 Feb, Essential hypertension I10 and Hypothyroidism E03.9 [facility] [id number] [place] [address] 11670- 1204 Jan, [facility] [id number] [place] [address] 47419- 6495 Jul, [facility] [id number] [place] [address] 00333- 1434 Jul, [facility] [address] [address] Jul, Essential hypertension I10 and Hypothyroidism E03.9 [facility] [id number] [address] May, Hypothyroidism, unspecified E03.9 [facility] [id number] [place] [address] 19165- 9741 May, Essential hypertension I10 and Hypothyroidism E03.9 [facility] [address] [place] [address] 58038- 0139 Feb, Routine general medical examination at [facility] facility V70.0 ; Essential hypertension, benign 401.1 and Unspecified hypothyroidism 244.9 [facility] [id number] [address] Jan, [facility] [id number] [place] [address] 39933- 6181 November, [facility] [id number] [place] [address] 59823- 1116 November, Hypothyroid 244.9 and Essential hypertension, benign 401.1 [facility] [address] [address] Oct, [facility] [address] [address] 4[address] Oct, [facility] [address] [address] 14[address] Jun, [facility] [address] [address] 8435 Jun, [facility] [id number] [address] 0165 May, [facility] [address] [address] 4146 May, [facility] [address] [id number] [place] [address] 3075 May, [facility] [place] [facility] [address] [id number] [place] [address]- 1080 May, [facility] [place] [facility] [address] [id number] [place] [address]- 5752 May, [facility] [place] [facility] [address] [id number] [place] [address]- 5961 May, [facility] [place] [facility] [address] [id number] [place] [address]- 2383 Apr, [facility] [place] [facility] [address] [id number] [place] [address]- 5976 Apr, [facility] [place] [facility] [address] [id number] [place] [address]- 6321 Oct, [facility] [place] [facility] [address] [id number] [place] [address]- 6144 Oct, [facility] [place] [facility] [address] [id number] [place] [address]- 6771 Sep, [facility] [place] [facility] [address] [id number] [place] [address]- 9624 Sep, [facility] [place] [facility] [address] [id number] [place] [address]- 5233 14 Aug, 2013 [facility] [place] [facility] [address] [id number] [place] [address] 1989 Aug, [facility] [place] [facility] [address] [id number] [place] [address] Jun, [facility] [place] [facility] [address] [id number] [place] [address]- 1494 Jun, [facility] [place] [facility] [address] [id number] [place] [address]- 9032 May, [facility] [place] [facility] [address] [id number] [place] [address]- 5944 May, [facility] [address] [id number] [place] [address]- 9992 18 Mar, 2013 [facility] [address] [id number] [place] [address]- 6316 Jan, [facility] [address] [facility] [id number] [place] [address]- 1592 Dec, [facility] [place] [facility] [address] [id number] [place] [address]- 2546 Oct, [facility] [address] [id number] [place] [address]- 9723 29 Sep, 2012 [facility] [address] [id number] [place] [address]- 5906 Sep, [facility] [address] [id number] [place] [address]- 4886 Sep, [facility] [address] [id number] [place] [address]- 6458 Sep, [facility] [address] [id number] [place] [address]- 7645 Sep, [facility] [address] [id number] [place] [address]- 9826 Jun, [facility] [address] [id number], [place] [address]- 4910 19 Jun, 2012 [facility] [place] [facility] [address] [id number], [place] [address]- 5841 18 Jun, 2012 [facility] [place] [facility] [address] [id number] [place] [address]- 2207 18 Jun, 2012 [facility] [place] [facility] [address] [id number] [place] [address]- 1972 10 Jun, 2012 [facility] [place] [facility] [address] [id number] [place] [address]- 5840 Jun, [facility] [place] [facility] [address] [facility] [id number] [place] [address]- 1506 Jun, [facility] [address] [facility] [id number], [place] [address]- 0732 Jun, [facility] [address] [facility] [id number] [address]- 2179 Jun, [facility] [address] [facility] [id number] [address] Jun, IMMUNIZATIONS No Known Immunizations SOCIAL HISTORY Never Assessed REASON FOR VISIT 90 day request PLAN OF CARE VITAL SIGNS MEDICATIONS Medication Instructions Dosage Frequency Start Date End Date Duration Status Levothyroxine Sodium 150 MCG Orally 90 days 1 tablet 30 Active RESULTS No Results PROCEDURES No Known procedures INSTRUCTIONS MEDICATIONS ADMINISTERED No Known Medications MEDICAL (GENERAL) HISTORY Type Description Date Medical History cerebral palsy- had spinal menningitis as a small child and then dx with CP Medical History Hypothyroidism Medical History hypertension Medical History hypokalemia Medical History obesity Medical History Abnormal thyroid ultrasound Surgical History parathyroidectomy 2007 Surgical History orthopedic surgery-Rt ankle fracture with hardware 2001 Hospitalization History Surgery(s) only
--- NOTE | 2017-12-18 15:44 | ED GU-Female ---
General Chief Complaint: -Female Stated Complaint: FEVER/GROIN PAIN/DARK URINE History of Present Illness Date Seen by Provider: Dec 18, 2017 Time Seen by Provider: 15:35 Initial Comments 77-year-old female presents for right groin pain and dark urine. She reports her symptoms have worsened over the last few days. She also has nausea related to this and has not been taking her routine home medications. Timing/Duration: yesterday, getting worse Severity/Quality: moderate Location: suprapubic, right flank Radiation: none Associated Symptoms: nausea/vomiting Allergies and Home Medications Allergies Coded Allergies: No Known Drug Allergies (Verified , 09/17/08) Home Medications Hydrochlorothiazide 25 Mg Tablet, 1 TAB PO UD, (Reported) Ondansetron 4 Mg Tab.rapdis, 4 MG SL Q4H PRN for NAUSEA/VOMITING Prescribed by: SINAN VILLEGAS on 10/11/16 0141 Phenazopyridine HCl 100 Mg Tablet, 100 MG PO Q8H Prescribed by: MELONY MALIK on 12/18/171718 Sulfamethoxazole/Trimethoprim 1 Each Tablet, 1 EACH PO BID Prescribed by: MELONY MALIK on 12/18/171718 Patient Home Medication List Home Medication List Reviewed: Yes Review of Systems Constitutional: no symptoms reported, see HPI Genitourinary: see HPI, dysuria, frequency, flank pain All Other Systemes Reviewed Negative Unless Noted: Yes Past Qwapuwh-Xdqksh-Xgstzx Hx Past Med/Social Hx: Reviewed Nursing Past Med/Soc Hx Patient Social History 2nd Hand Smoke Exposure: No Recent Foreign Travel: No Contact w/Someone Who Travel: No Recent Hopitalizations: No Seasonal Allergies Seasonal Allergies: No Past Medical History Thyroidectomy Cerebral Palsy Reproductive Disorders: No Hypothyroidsim Physical Exam Vital Signs Vital Signs - First Documented 12/18/17 15:17 Temp 97.6 Pulse 104 Resp 24 B/P (MAP) 182/96 (124) Pulse Ox 96 O2 Delivery Room Air Capillary Refill : General Appearance: WD/WN, no apparent distress HEENT: PERRL/EOMI, normal ENT inspection, TMs normal, pharynx normal Neck: non-tender, full range of motion, supple Cardiovascular: normal peripheral pulses, regular rate, rhythm Respiratory: chest non-tender, lungs clear, normal breath sounds Gastrointestinal: normal bowel sounds, soft, distended; No guarding, No rebound ; tenderness (suprapubic and right groin) Back: normal inspection; No no vertebral tenderness; CVA tenderness (R); No CVA tenderness (L) Extremities: normal range of motion, non-tender, normal inspection Neurologic/Psychiatric: no motor/sensory deficits, alert, normal mood/affect, oriented x 3 Skin: normal color, warm/dry Progress/Results/Core Measures Suspected Sepsis SIRS Temperature: Pulse: Respiratory Rate: Laboratory Tests 12/18/17 15:26: White Blood Count 6.6 Blood Pressure / Mean: Laboratory Tests 12/18/17 15:26: Creatinine 0.74, Platelet Count 164, Total Bilirubin 2.7H Results/Orders Lab Results Laboratory Tests Test 12/18/17 15:26 12/18/17 15:36 Range/Units White Blood Count 6.6 4.3-11.0 10^3/uL Red Blood Count 4.39 4.35-5.85 10^6/uL Hemoglobin 13.7 11.5-16.0 G/DL Hematocrit 38 35-52 % Mean Corpuscular Volume 86 80-99 FL Mean Corpuscular Hemoglobin 31 25-34 PG Mean Corpuscular Hemoglobin Concent 36 32-36 G/DL Red Cell Distribution Width 13.2 10.0-14.5 % Platelet Count 164 130-400 10^3/uL Mean Platelet Volume 9.6 7.4-10.4 FL Neutrophils (%) (Auto) 69 42-75 % Lymphocytes (%) (Auto) 15 12-44 % Monocytes (%) (Auto) 14 H 0-12 % Eosinophils (%) (Auto) 1 0-10 % Basophils (%) (Auto) 1 0-10 % Neutrophils # (Auto) 4.6 1.8-7.8 X 10^3 Lymphocytes # (Auto) 1.0 1.0-4.0 X 10^3 Monocytes # (Auto) 0.9 0.0-1.0 X 10^3 Eosinophils # (Auto) 0.1 0.0-0.3 10^3/uL Basophils # (Auto) 0.0 0.0-0.1 10^3/uL Sodium Level 137 135-145 MMOL/L Potassium Level 2.8 L 3.6-5.0 MMOL/L Chloride Level 98 98-107 MMOL/L Carbon Dioxide Level 24 21-32 MMOL/L Anion Gap 15 H 5-14 MMOL/L Blood Urea Nitrogen 7 7-18 MG/DL Creatinine 0.74 0.60-1.30 MG/DL Estimat Glomerular Filtration Rate > 60 BUN/Creatinine Ratio 9 Glucose Level 103 70-105 MG/DL Calcium Level 9.3 8.5-10.1 MG/DL Total Bilirubin 2.7 H 0.1-1.0 MG/DL Aspartate Amino Transf (AST/SGOT) 33 5-34 U/L Alanine Aminotransferase (ALT/SGPT) 48 0-55 U/L Alkaline Phosphatase 100 40-136 U/L Total Protein 7.6 6.4-8.2 GM/DL Albumin 4.0 3.2-4.5 GM/DL Urine Color YELLOW Urine Clarity CLEAR Urine pH 7 5-9 Urine Specific [place] 1.010 L 1.016-1.022 Urine Protein 2+ H NEGATIVE Urine Glucose (UA) NEGATIVE NEGATIVE Urine Ketones 3+ H NEGATIVE Urine Nitrite NEGATIVE NEGATIVE Urine Bilirubin NEGATIVE NEGATIVE Urine Urobilinogen 1 NORMAL MG/DL Urine Leukocyte Esterase 1+ H NEGATIVE Urine RBC (Auto) 4+ H NEGATIVE Urine RBC 2-5 H /HPF Urine WBC 5-10 H /HPF Urine Squamous Epithelial Cells 2-5 /HPF Urine Renal Epithelial Cells NONE /HPF Urine Crystals NONE /LPF Urine Bacteria TRACE /HPF Urine Casts NONE /LPF Urine Mucus NEGATIVE /LPF Urine Culture Indicated YES My Orders Orders - MELONY MALIK Ua Culture If Indicated (12/18/17 15:11) Cbc With Automated Diff (12/18/17 15:42) Comprehensive Metabolic Panel (12/18/17 15:42) Urine Culture (12/18/17 15:36) Ns Iv 1000 Ml (Sodi... W/Potassium Chlor (12/18/17 16:30) Phenazopyridine Tablet (Pyridium Tablet) (12/18/17 17:30) Sulfamethoxazole/Trimet Ds Tab (Bactrim (12/18/17 17:30) Medications Given in ED Current Medications Medications Dose Ordered Sig/Radha Route Start Time Stop Time Status Last Admin Dose Admin Phenazopyridine HCl 100 mg ONCE ONCE PO 12/18/17 17:30 12/18/17 17:31 DC 12/18/17 17:56 100 MG Trimethoprim/ Sulfamethoxazole 1 ea ONCE ONCE PO 12/18/17 17:30 12/18/17 17:31 DC 12/18/17 17:56 1 EA Vital Signs/I&O 12/18/17 12/18/17 15:17 18:02 Temp 97.6 97.6 Pulse 104 92 Resp 24 20 B/P (MAP) 182/96 (124) 120/90 (124) Pulse Ox 96 96 O2 Delivery Room Air Room Air Capillary Refill : Progress Note : Time: 15:35 Progress Note Initial evaluation completed, recommended labs. 1620 potassium 2.8, will give normal saline with 40 mEq of potassium and 1 L IV. 1720 will give Pyridium 100 mg for bladder spasms and pain. 1745 discharge instructions and return precautions reviewed with the patient. All questions answered. Departure Impression Primary Impression: Urinary tract infection Qualified Codes: N30.01 - Acute cystitis with hematuria Additional Impression: Hypokalemia Disposition: HOME, SELF-CARE Condition: Stable Departure-Patient Inst. Decision time for Depature: 17:40 Referrals: JEAN CARLOS SOTO MD (PCP/Family) Primary Care Physician Patient Instructions: Hypokalemia (DC), Urinary Tract Infection, Adult (DC) Add. Discharge Instructions: Take medication as prescribed. Resume taking your potassium 10 mEq, 1 tablet twice daily, Schedule follow-up with Dr. Mosquera for one week. Increase water intake, drink 1 bottle of water every 2 hours while awake. Empty bladder frequently. Return to emergency department for fever greater than 101 not relieved with Tylenol or ibuprofen, new problems or concerns. All discharge instructions reviewed with patient and/or family. Voiced understanding. Scripts Phenazopyridine HCl (Pyridium) 100 Mg Tablet 100 MG PO Q8H, #6 TAB 0 Refills Prov: MELONY MALIK 12/18/17 Sulfamethoxazole/Trimethoprim (Bactrim Ds Tablet) 1 Each Tablet 1 EACH PO BID, #14 TAB Prov: MELONY MALIK 12/18/17 Copy Copies To 1: JEAN CARLOS SOTO MD, AMY ARNP Dec 18, 2017 15:43
[2017-12-18 15:47] LABS: BASOPHILS % (AUTO) 1 % (0-10); EOSINOPHILS # (AUTO) 0.1 10^3/uL (0.0-0.3); EOSINOPHILS % (AUTO) 1 % (0-10); HEMATOCRIT 38 % (35-52); HEMOGLOBIN 13.7 G/DL (11.5-16.0); LYMPHOCYTES % (AUTO) 15 % (12-44); MEAN CORPUSCULAR HEMOGLOBIN 31 PG (25-34); MEAN CORPUSCULAR HGB CONC 36 G/DL (32-36); MEAN CORPUSCULAR VOLUME 86 FL (80-99); MEAN PLATELET VOLUME 9.6 FL (7.4-10.4); MONOCYTES # (AUTO) 0.9 X 10^3 (0.0-1.0); MONOCYTES % (AUTO) 14 % (0-12); NEUTROPHILS # (AUTO) 4.6 X 10^3 (1.8-7.8); NEUTROPHILS % (AUTO) 69 % (42-75); PLATELET COUNT 164 10^3/uL (130-400); RED BLOOD COUNT 4.39 10^6/uL (4.35-5.85); RED CELL DISTRIBUTION WIDTH 13.2 % (10.0-14.5); WHITE BLOOD COUNT 6.6 10^3/uL (4.3-11.0)
[2017-12-18 15:55] LABS: BILIRUBIN,URINE NEGATIVE (NEGATIVE); CLARITY,URINE CLEAR; COLOR,URINE YELLOW; GLUCOSE, URINE (UA) NEGATIVE (NEGATIVE); KETONES,URINE 3+ (NEGATIVE); LEUKOCYTE ESTERASE ,URINE 1+ (NEGATIVE); NITRITE,URINE NEGATIVE (NEGATIVE); PH,URINE 7 (5-9); PROTEIN,URINE 2+ (NEGATIVE); UROBILINOGEN,URINE 1 MG/DL (NORMAL)
[2017-12-18 16:01] LABS: ALANINE AMINOTRANSFERASE 48 U/L (0-55); ALKALINE PHOSPHATASE 100 U/L (40-136); BILIRUBIN,TOTAL 2.7 MG/DL (0.1-1.0); BUN/CREATININE RATIO 9; CALCIUM 9.3 MG/DL (8.5-10.1); CARBON DIOXIDE 24 MMOL/L (21-32); CHLORIDE 98 MMOL/L (98-107); CREATININE SERUM 0.74 MG/DL (0.60-1.30); GFR ESTIMATED > 60; GLUCOSE 103 MG/DL (70-105); POTASSIUM 2.8 MMOL/L (3.6-5.0); SODIUM 137 MMOL/L (135-145); TOTAL PROTEIN 7.6 GM/DL (6.4-8.2)
[2017-12-18 16:08] LABS: BACTERIA,URINE TRACE /HPF
[2017-12-18] MEDS ORDERED: POTASSIUM CHLORIDE INJ 40 MEQ in NS IV 1000 ML 1,000 ML IV SCH (16:30)
[2017-12-18] MEDS ORDERED: SULF1TAB35 PO (17:19)
[2017-12-18] MEDS ORDERED: PHEN-639 PO (17:19)
[2017-12-18] MEDS ORDERED: TRIM/SULFAMETH 160/800 (SEPTRA DS) TAB PO ONE (17:30)
[2017-12-18] MEDS ORDERED: PHENAZOPYRIDINE 100 MG (PYRIDIUM) TABLET PO ONE (17:30)
[2017-12-18 18:02] VITALS: BP 120/90
== END 2017-12-18 18:02 | disposition home or self-care (01) ==
LOC: EDUNIT# 14:51 → ER 14:54
DX: N39.0 Urinary tract infection, site not specified (principal); E87.6 Hypokalemia; E03.9 Hypothyroidism, unspecified; G80.9 Cerebral palsy, unspecified; Z90.89 Acquired absence of other organs
CPT/HCPCS: 36415; 80053; 81000; 85025; 87088; 96365

== ENCOUNTER 2018-02-21 16:49 | Emergency (ER) | payer MEDICAID ==
[~2018-02-21] VITALS: Ht 170.2 cm; Wt 127.0 kg
[~2018-02-21 16:49] MED LIST changes: +PHEN-639 PO; +SULF1TAB35 PO
[2018-02-21] MEDS ORDERED: RX-MUPIROCIN (BACTROBAN) 2% OINT 22 GM TUBE TOP STA (18:08)
[2018-02-21] MEDS ORDERED: SULF1TAB35 PO (18:14)
[2018-02-21] MEDS ORDERED: TETANUS,DIPTH,PERTUSS P/F (BOOSTRIX) 0.5 ML VIAL IM ONE (18:15)
--- NOTE | 2018-02-21 18:17 | ED Upper Extremity ---
General Chief Complaint: Laceration Stated Complaint: FINGERS LACERATION Nursing Triage Note: PT AMBULATES INTO THE ED WITH A TOWEL ON HER HAND. REPORTS CUTTING HER FINGER ON A MANDOLIN WHILE CHOPPING AN ONION Nursing Sepsis Screen: No Definite Risk Source: patient Exam Limitations: no limitations History of Present Illness Date Seen by Provider: Feb 21, 2018 Time Seen by Provider: 18:00 Initial Comments PT ARRIVES VIA POV C/O LACERATION TO RIGHT INDEX FINGER AROUND 1600 TODAY--CUT IT ON A MANDOLIN SLICER PT IS RIGHT HANDED NO PARESTHESIAS OR MOTOR DEFICITS LAST TETANUS SHOT IS UNKNOWN Allergies and Home Medications Allergies Coded Allergies: No Known Drug Allergies (Verified , 09/17/08) Home Medications Hydrochlorothiazide 25 Mg Tablet, 1 TAB PO UD, (Reported) Ondansetron 4 Mg Tab.rapdis, 4 MG SL Q4H PRN for NAUSEA/VOMITING Prescribed by: SINAN VILLEGAS on 10/11/16 0141 Phenazopyridine HCl 100 Mg Tablet, 100 MG PO Q8H Prescribed by: MELONY MALIK on 12/18/17 171 Sulfamethoxazole/Trimethoprim 1 Each Tablet, 1 EACH PO BID Prescribed by: MELONY MALIK on 12/18/17 1719 Sulfamethoxazole/Trimethoprim 1 Each Tablet, 1 EACH PO BID Prescribed by: ROMAN REYNOSO on 02/21/18 1814 Patient Home Medication List Home Medication List Reviewed: Yes Constitutional: no symptoms reported Musculoskeletal: see HPI Skin: see HPI Psychiatric/Neurological: No Symptoms Reported Past Ajtzvpr-Txrfyu-Vlhyfd Hx Patient Social History Type Used: Cigarettes 2nd Hand Smoke Exposure: No Recent Foreign Travel: No Contact w/Someone Who Travel: No Recent Infectious Disease Expo: No Recent Hopitalizations: No Seasonal Allergies Seasonal Allergies: No Past Medical History Surgeries: Yes (RIGHT ANKLE) Orthopedic, Thyroidectomy Respiratory: No Cardiac: Yes Chronic Edema/Swelling Neurological: Yes Cerebral Palsy : No Last Menstrual Period: Feb 25, 2017 Reproductive Disorders: No Genitourinary: Yes (occas urine incontinence hx) UTI-Chronic Gastrointestinal: No Musculoskeletal: Yes (CEREBRAL PALSY) Endocrine: Yes Hypothyroidsim HEENT: No Cancer: No Psychosocial: No Integumentary: No Blood Disorders: No Physical Exam Vital Signs Vital Signs - First Documented 02/21/18 18:00 Pulse 96 Resp 20 B/P (MAP) 148/87 (107) Pulse Ox 95 O2 Delivery Room Air Capillary Refill : Less Than 3 Seconds Height, Weight, BMI Height: 5'7.00" Weight: 280lbs. oz. 127.573101bm; BMI Method:Stated General Appearance: WD/WN, no apparent distress Hand: Right (INDEX FINGER PAD WITH < 1 CM SUPERFICIAL FLAP LACERATION--NEAR COMPLETE AVULSION. NO ACTIVE BLEEDING AT THIS TIME. DISTAL MOTOR/SENSORY/ VASCULAR INTACT. ) Neurologic/Tendon: normal sensation, normal motor functions, normal tendon functions Neurologic/Psychiatric: water analyst II-XII nml as tested, alert, normal mood/affect, oriented x 3 Skin: normal color, warm/dry, other ( ABOVE) Progress/Results/Core Measures Results/Orders My Orders Orders - ROMAN REYNOSO DO Dipht,Pertuss(Acell),Tet Adult (Boostrix (02/21/18 18:15) Rx-Mupirocin 2% Oint (Rx-Bactroban) (02/21/18 18:08) Wound Dressing-Ed (02/21/18 18:08) Vital Signs/I&O 02/21/18 18:00 Pulse 96 Resp 20 B/P (MAP) 148/87 (107) Pulse Ox 95 O2 Delivery Room Air Blood Pressure Mean: 107 Progress Progress Note : Progress Note WOUND IS SUPERFICIAL AND HAS NEAR-COMPLETE AVULSION--SMALL PEDICLE OF SKIN STILL ATTACHED--NO REPAIR REQUIRED NO ACTIVE BLEEDING Departure Impression Primary Impression: SUPERFICIAL LACERATION RIGHT INDEX FINGER Additional Impression: Rcwwglkorh-yjvkvmich-gqxksso (DPT) vaccination administered at current visit Disposition: 01 HOME, SELF-CARE Condition: Stable Departure-Patient Inst. Referrals: JEAN CARLOS SOTO MD (PCP/Family) Primary Care Physician Patient Instructions: Diphtheria and Tetanus Toxoids, and Acellular Pertussis Vaccine, Wound Care (DC) Add. Discharge Instructions: CLEAN WOUND TWICE A DAY WITH ANTIBACTERIAL SOAP AND WATER, APPLY ANTIBIOTIC OINTMENT AND FRESH DRESSING TWICE A DAY OTHERWISE DO NOT GET WET UNTIL SCAB IS FORMED TYLENOL AND MOTRIN NEEDED FOR PAIN FOLLOW UP WITH YOUR DR NEEDED All discharge instructions reviewed with patient and/or family. Voiced understanding. Scripts Sulfamethoxazole/Trimethoprim (Bactrim Ds Tablet) 1 Each Tablet 1 EACH PO BID, #20 TAB Prov: ROMAN REYNOSO DO 02/21/18 ROMAN REYNOSO DO Feb 21, 2018 18:17
[2018-02-21 19:06] VITALS: BP 129/104
== END 2018-02-21 19:06 | disposition home or self-care (01) ==
LOC: EDUNIT# 16:49 → ER 16:50
DX: S61.210A Laceration without foreign body of right index finger without damage to nail, initial encounter (principal); G80.9 Cerebral palsy, unspecified; E03.9 Hypothyroidism, unspecified; Z23 Encounter for immunization; Z87.440 Personal history of urinary (tract) infections; W27.8XXA Contact with other nonpowered hand tool, initial encounter
CPT/HCPCS: 90715; 99282

== ENCOUNTER 2019-09-11 21:05 | Emergency (ER) | payer MEDICAID ==
[~2019-09-11] VITALS: Ht 170.1 cm; Wt 111.1 kg
[2019-09-11 21:41] LABS: BASOPHILS % (AUTO) 0 % (0-10); EOSINOPHILS # (AUTO) 0.1 10^3/uL (0.0-0.3); EOSINOPHILS % (AUTO) 1 % (0-10); HEMATOCRIT 44 % (35-52); LYMPHOCYTES # (AUTO) 1.5 X 10^3 (1.0-4.0); LYMPHOCYTES % (AUTO) 15 % (12-44); MEAN CORPUSCULAR HEMOGLOBIN 30 PG (25-34); MEAN CORPUSCULAR HGB CONC 34 G/DL (32-36); MEAN CORPUSCULAR VOLUME 86 FL (80-99); MEAN PLATELET VOLUME 10.5 FL (7.4-10.4); MONOCYTES # (AUTO) 0.7 X 10^3 (0.0-1.0); MONOCYTES % (AUTO) 7 % (0-12); NEUTROPHILS # (AUTO) 7.4 X 10^3 (1.8-7.8); NEUTROPHILS % (AUTO) 76 % (42-75); PLATELET COUNT 356 10^3/uL (130-400); RED CELL DISTRIBUTION WIDTH 13.4 % (10.0-14.5); WHITE BLOOD COUNT 9.8 10^3/uL (4.3-11.0)
--- NOTE | 2019-09-11 21:47 | ED General ---
General Chief Complaint: General Problems/Pain Stated Complaint: JAW PAIN Source of Information: Patient Exam Limitations: No Limitations History of Present Illness Date Seen by Provider: Sep 11, 2019 Time Seen by Provider: 21:45 Initial Comments To ER with reports of left-sided jaw pain. 3 days ago she awakened with swelling and pain in the left side of her jaw and neck. She initially had some trouble swallowing, those troubles have subsided but she still has a bit of discomfort. No fevers or chills. Timing/Duration: 2-3 Days Severity: Moderate Associated Systoms: Denies Symptoms Allergies and Home Medications Allergies Coded Allergies: No Known Drug Allergies (Verified , 09/17/08) Home Medications Amoxicillin 500 Mg Capsule, 500 MG PO TID Prescribed by: RODRIGO CENTENO on 09/11/19 2200 Hydrochlorothiazide 25 Mg Tablet, 1 TAB PO UD, (Reported) Ondansetron 4 Mg Tab.rapdis, 4 MG SL Q4H PRN for NAUSEA/VOMITING Prescribed by: SINAN VILLEGAS on 10/11/16 0141 Phenazopyridine HCl 100 Mg Tablet, 100 MG PO Q8H Prescribed by: MELONY MALIK on 12/18/179 Sulfamethoxazole/Trimethoprim 1 Each Tablet, 1 EACH PO BID Prescribed by: MELONY MALIK on 12/18/171718 Sulfamethoxazole/Trimethoprim 1 Each Tablet, 1 EACH PO BID Prescribed by: ROMAN REYNOSO on 02/21/18 1814 Patient Home Medication List Home Medication List Reviewed: Yes Review of Systems Review of Systems Constitutional: see HPI; No chills, No fever EENTM: see HPI Respiratory: no symptoms reported; No cough, No dyspnea on exertion, No short of breath Cardiovascular: No chest pain, No palpitations Genitourinary: no symptoms reported Musculoskeletal: no symptoms reported Skin: no symptoms reported Psychiatric/Neurological: No Symptoms Reported Hematologic/Lymphatic: No Symptoms Reported Past Ocrdkzs-Ibumxz-Rhazbn Hx Patient Social History Type Used: Cigarettes 2nd Hand Smoke Exposure: No Recent Foreign Travel: No Contact w/Someone Who Travel: No Recent Hopitalizations: No Seasonal Allergies Seasonal Allergies: No Past Medical History Surgeries: Yes (RIGHT ANKLE) Orthopedic, Thyroidectomy Respiratory: No Cardiac: Yes Chronic Edema/Swelling Neurological: Yes Cerebral Palsy Reproductive Disorders: No Genitourinary: Yes (occas urine incontinence hx) UTI-Chronic Gastrointestinal: No Musculoskeletal: Yes (CEREBRAL PALSY) Endocrine: Yes Hypothyroidsim HEENT: No Cancer: No Psychosocial: No Integumentary: No Blood Disorders: No Physical Exam Vital Signs Vital Signs - First Documented 09/11/19 21:15 Temp 37.1 Pulse 122 Resp 18 B/P (MAP) 149/116 (127) Pulse Ox 94 Capillary Refill : Height, Weight, BMI Height: 5'7.00" Weight: 280lbs. oz. 127.133066aa; BMI Method:Stated General Appearance: No Apparent Distress, WD/WN, Other (currently in an [employer] wheelchair, she has cerebral palsy and states that she has recently injured knee meniscus and one of her knees.) Eyes: Bilateral Eye Normal Inspection, Bilateral Eye PERRL, Bilateral Eye EOMI HEENT: PERRL/EOMI, TMs Normal Neck: Full Range of Motion, Normal Inspection, Lymphadenopathy (L) (some swelling to the left side of the mandible. There is no fluctuance bucca mucosa though there are several teeth on the left side of the mandible are carious and eroded.) Respiratory: No Accessory Muscle Use, No Respiratory Distress Cardiovascular: Normal Peripheral Pulses, Tachycardia Gastrointestinal: Non Tender, Soft Extremity: Normal Capillary Refill, Normal Inspection Neurologic/Psychiatric: Alert, Oriented x3 Skin: Normal Color, Warm/Dry Progress/Results/Core Measures Suspected Sepsis SIRS Temperature: Pulse: Respiratory Rate: Laboratory Tests 09/11/19 21:25: White Blood Count 9.8 Blood Pressure / Mean: Laboratory Tests 09/11/19 21:25: Creatinine 0.82, Platelet Count 356, Total Bilirubin 0.8 Results/Orders Lab Results Laboratory Tests Test 09/11/19 21:25 09/11/19 21:45 Range/Units White Blood Count 9.8 4.3-11.0 10^3/uL Red Blood Count 5.08 4.35-5.85 10^6/uL Hemoglobin 15.0 11.5-16.0 G/DL Hematocrit 44 35-52 % Mean Corpuscular Volume 86 80-99 FL Mean Corpuscular Hemoglobin 30 25-34 PG Mean Corpuscular Hemoglobin Concent 34 32-36 G/DL Red Cell Distribution Width 13.4 10.0-14.5 % Platelet Count 356 130-400 10^3/uL Mean Platelet Volume 10.5 H 7.4-10.4 FL Neutrophils (%) (Auto) 76 H 42-75 % Lymphocytes (%) (Auto) 15 12-44 % Monocytes (%) (Auto) 7 0-12 % Eosinophils (%) (Auto) 1 0-10 % Basophils (%) (Auto) 0 0-10 % Neutrophils # (Auto) 7.4 1.8-7.8 X 10^3 Lymphocytes # (Auto) 1.5 1.0-4.0 X 10^3 Monocytes # (Auto) 0.7 0.0-1.0 X 10^3 Eosinophils # (Auto) 0.1 0.0-0.3 10^3/uL Basophils # (Auto) 0.0 0.0-0.1 10^3/uL Sodium Level 138 135-145 MMOL/L Potassium Level 3.8 3.6-5.0 MMOL/L Chloride Level 102 98-107 MMOL/L Carbon Dioxide Level 25 21-32 MMOL/L Anion Gap 11 5-14 MMOL/L Blood Urea Nitrogen 8 7-18 MG/DL Creatinine 0.82 0.60-1.30 MG/DL Estimat Glomerular Filtration Rate > 60 BUN/Creatinine Ratio 10 Glucose Level 114 H 70-105 MG/DL Calcium Level 10.9 H 8.5-10.1 MG/DL Corrected Calcium 10.6 H 8.5-10.1 MG/DL Total Bilirubin 0.8 0.1-1.0 MG/DL Aspartate Amino Transf (AST/SGOT) 19 5-34 U/L Alanine Aminotransferase (ALT/SGPT) 28 0-55 U/L Alkaline Phosphatase 124 40-136 U/L Total Protein 7.7 6.4-8.2 GM/DL Albumin 4.4 3.2-4.5 GM/DL Free Thyroxine 1.43 0.70-1.48 NG/DL Urine Color YELLOW Urine Clarity SL CLOUDY Urine pH 6.0 5-9 Urine Specific [place] 1.025 H 1.016-1.022 Urine Protein TRACE H NEGATIVE Urine Glucose (UA) NEGATIVE NEGATIVE Urine Ketones TRACE H NEGATIVE Urine Nitrite NEGATIVE NEGATIVE Urine Bilirubin NEGATIVE NEGATIVE Urine Urobilinogen 0.2 < = 1.0 MG/DL Urine Leukocyte Esterase 2+ H NEGATIVE Urine RBC (Auto) NEGATIVE NEGATIVE Urine RBC NONE /HPF Urine WBC >100 H /HPF Urine Crystals PRESENT H /LPF Urine Amorphous Sediment FEW JEANNE URATES H /LPF Urine Bacteria MODERATE H /HPF Urine Casts NONE /LPF Urine Mucus NEGATIVE /LPF Urine Culture Indicated YES My Orders Orders - RODRIGO CENTENO APRN Cbc With Automated Diff (09/11/19 21:36) Comprehensive Metabolic Panel (09/11/19 21:36) Ua Culture If Indicated (09/11/19 21:36) Ed Iv/Invasive Line Start (09/11/19 21:36) Thyroid Stimulating Hormone (09/11/19 21:36) Free T4 (Free Thyroxine) (09/11/19 21:36) Ceftriaxone For Iv Use (Rocephin For I (09/11/19 22:00) Ketorolac Injection (Toradol Injection) (09/11/19 22:00) Urine Culture (09/11/19 21:45) Medications Given in ED Current Medications Medications Dose Ordered Sig/Radha Route Start Time Stop Time Status Last Admin Dose Admin Ceftriaxone Sodium 1000 mg/ Sterile Water 10 ml @ 200 mls/hr ONCE ONCE IV 09/11/19 22:00 09/11/19 22:02 DC 09/11/19 22:14 200 MLS/HR Ketorolac Tromethamine 15 mg ONCE ONCE IVP 09/11/19 22:00 09/11/19 22:01 DC 09/11/19 22:14 15 MG Vital Signs/I&O 09/11/19 21:15 Temp 37.1 Pulse 122 Resp 18 B/P (MAP) 149/116 (127) Pulse Ox 94 Capillary Refill : Departure Impression Primary Impression: Left mandibular swelling Additional Impression: Urinary tract infection Disposition: HOME, SELF-CARE Condition: Stable Departure-Patient Inst. Decision time for Depature: 21:59 Referrals: JEAN CARLOS SOTO MD (PCP/Family) Primary Care Physician Patient Instructions: NO INSTRUCTIONS GIVEN Add. Discharge Instructions: 1. Antibiotics as directed 2. Return to ER for any concerns 2. Follow-up with your dentist later this week or next week as the cause of the swelling is most likely from a bad tooth. All discharge instructions reviewed with patient and/or family. Voiced understanding. Scripts Amoxicillin (Amoxicillin) 500 Mg Capsule 500 MG PO TID, #21 CAP 0 Refills Prov: RODRIGO CENTENO APRN 09/11/19 RODRIGO CENTENO APRN Sep 11, 2019 21:46
[2019-09-11 21:52] LABS: BILIRUBIN,URINE NEGATIVE (NEGATIVE); CLARITY,URINE SL CLOUDY; COLOR,URINE YELLOW; GLUCOSE, URINE (UA) NEGATIVE (NEGATIVE); KETONES,URINE TRACE (NEGATIVE); LEUKOCYTE ESTERASE ,URINE 2+ (NEGATIVE); NITRITE,URINE NEGATIVE (NEGATIVE); PROTEIN,URINE TRACE (NEGATIVE)
[2019-09-11 21:53] LABS: ALANINE AMINOTRANSFERASE 28 U/L (0-55); ALBUMIN 4.4 GM/DL (3.2-4.5); ALKALINE PHOSPHATASE 124 U/L (40-136); BILIRUBIN,TOTAL 0.8 MG/DL (0.1-1.0); BUN/CREATININE RATIO 10; CALCIUM 10.9 MG/DL (8.5-10.1); CARBON DIOXIDE 25 MMOL/L (21-32); CHLORIDE 102 MMOL/L (98-107); CREATININE SERUM 0.82 MG/DL (0.60-1.30); GFR ESTIMATED > 60; GLUCOSE 114 MG/DL (70-105); POTASSIUM 3.8 MMOL/L (3.6-5.0); SODIUM 138 MMOL/L (135-145); TOTAL PROTEIN 7.7 GM/DL (6.4-8.2)
[2019-09-11] MEDS ORDERED: AMOX500C2 PO (22:00)
[2019-09-11] MEDS ORDERED: cefTRIAXone FOR IV USE 1,000 MG in WATER (STERILE) FOR INJECTION 10 ML IV ONE (22:00)
[2019-09-11] MEDS ORDERED: KETOROLAC 30 MG/ML VIAL IVP ONE (22:00)
[2019-09-11 22:12] LABS: WBC,URINE >100 /HPF
[2019-09-11 22:13] LABS: FREE T4 (FREE THYROXINE) 1.43 NG/DL (0.70-1.48)
[2019-09-11 22:15] LABS: BACTERIA,URINE MODERATE /HPF
[2019-09-11 22:16] LABS: AMORPHOUS SEDIMENT,UR FEW AMOR URATES /LPF
[2019-09-11 22:38] VITALS: BP 126/101
--- OUTSIDE RECORDS SUMMARY | 2019-09-17 05:08 | XMS REPORT ---
Author Author Gisel Khan Doctor Organization [facility] Address Unknown Phone Unavailable Care Team Providers Care Operating Room Coordinator Name Role Phone Migration, Doctor Unavailable Unavailable PROBLEMS Type Condition ICD9-CM Code TLC28-CS Code Onset Dates Condition S tatus SNOMED Code Problem History of hypokalemia Z86.39 Active 71955070 Problem History of goiter Z86.39 Active 37 53971 Problem Elevated TSH R94.6 Active 7949976 05 Problem Cerebral palsy G80.9 Active 00019 8000 Problem Essential hypertension I10 Active 76733318 Problem Hypothyroidism E03.9 Active 42906 008 ALLERGIES No Information ENCOUNTERS Encounter Location Date Diagnosis [place] [address] [address] Apr, Hypothyroidism E03.9 [place] [address] [address] Mar, [facility] [address] [address] Mar, Essential hypertension I10 [place] [address] [address] Feb, [facility] [address] [address] Feb, Essential hypertension I10 [facility] [address] [address] Feb, Essential hypertension I10 [facility] [address] [address] Feb, Essential hypertension I10 [place] [address] [address] Feb, [facility] [address] [address] Jan, Essential hypertension I10 and Hypothyro idism E03.9 [facility] [address] [place] [id number] [place] [address] Dec, [facility] [address] [address] November, Hypothyroidism E03.9 [facility] [address] [address] Aug, Essential hypertension I10 [facility] [address] [address] Aug, Hypothyroidism E03.9 [facility] [address] [address] Aug, BMI 45.0-49.9, adult Z68.42 ; Essential hypertension I10 ; Cerebral palsy G80.9 and Hypothyroidism E03.9 [facility] [address] [facility] [id number] Jun, [facility] [address] [address] Feb, [facility] [address] [address] Dec, History of UTI Z87.440 ; Hypokalemia E87 .6 ; BMI 45.0-49.9, adult Z68.42 and Hypothyroidism E03.9 [place] [address] [address] November, Hypothyroidism E03.9 [facility] [address] [address] November, Essential hypertension I10 ; Hypothyroid ism E03.9 ; History of hypokalemia Z86.39 and BMI 45.0-49.9, adult Z68.42 [place] [address] [address] November, [facility] [address] [address] Jun, [facility] [address] [address] May, History of hypokalemia Z86.39 [facility] [address] [address] Apr, Hypothyroidism E03.9 [facility] [address] [address] Apr, Essential hypertension I10 ; Hypothyroid ism E03.9 ; Cerebral palsy G80.9 ; History of hypokalemia Z86.39 and History of goiter Z86.39 [facility] [address] [address] Dec, Hypothyroidism E03.9 [place] [address] [address] Dec, Hypothyroidism, unspecified E03.9 [place] [address] [address] Dec, Morbid obesity due to excess calories E6 6.01 ; Essential hypertension I10 ; Cerebral palsy G80.9 and Hyperlipidemia, unspecified hyperlipidemia type E78.5 [place] [address] [address] Oct, Hyperlipidemia, unspecified hyperlipidem ia type E78.5 [facility] [address] [address] May, Essential hypertension I10 ; Hypothyroid ism E03.9 and Hyperlipidemia, unspecified hyperlipidemia type E78.5 [facility] [address] [address] May, [facility] [address] [address] May, [facility] [address] [address] Feb, [facility] [address] [address] Feb, Essential hypertension I10 and Hypothyro idism E03.9 [place] [id number] [place] [id number] [place] [address] 14 Jan, 2016 [facility] [address] [address] Jul, [facility] [address] [address] Jul, [facility] [address] [address] Jul, Essential hypertension I10 and Hypothyro idism E03.9 [facility] [address] [address] May, Hypothyroidism, unspecified E03.9 [facility] [address] [address] May, Essential hypertension I10 and Hypothyro idism E03.9 [facility] [address] [address] Feb, Routine general medical examination at formerly [facility] V70.0 ; Essential hypertension, benign 401.1 and Unspecified hypothyroidism 244.9 [facility] [address] [address] Jan, [facility] [address] [address] November, [facility] [address] [address] November, Hypothyroid 244.9 and Essential hyperten liam, benign 401.1 [facility] [address] [address] Oct, [facility] [address] [address] Oct, [facility] [address] [address] Jun, [facility] [address] [address] Jun, [facility] [address] [id number] [place] [address] May, [facility] [address] [id number] [place] [address] May, [facility] [address] [id number] [place] [address] May, [facility] [address] [id number] [place] [address] May, [facility] [address] [id number] [place] [address] May, [facility] [address] [id number] [place] [address] May, [facility] [address] [id number] [place] [address] Apr, [facility] [address] [place] [id number] [place] [address] Apr, [facility] [address] [id number] [place] [address] Oct, [facility] [address] [id number] [place] [address] Oct, [facility] [address] [id number] [place] [address] Sep, [facility] [address] [id number] [place] [address] Sep, [facility] [address] [id number] [place] [address] Aug, [facility] [address] [id number] [place] [address] Aug, [facility] [address] [id number] [place] [address] Jun, [facility] [address] [id number] [place] [address] Jun, [facility] [address] [id number] [place] [address] May, [facility] [address] [id number] [place] [address] May, [facility] [address] [id number] [place] [address] Mar, [facility] [address] [id number] [place] [address] Jan, [facility] [address] [id number] [place] [address] Dec, [facility] [address] [facility] [id number] [place] [address] Oct, [facility] [address] [id number] [place] [address] 29 Sep, 2012 [facility] [address] [id number] [place] [address] Sep, [facility] [address] [id number] [place] [address] Sep, [facility] [address] [id number] [place] [address] Sep, [facility] [address] [id number] [place] [address] Sep, [facility] [address] [id number] [place] [address] Jun, [facility] [address] [id number] [place] [address] Jun, [facility] [address] [id number] [place] [address] Jun, [facility] [address] [id number] [place] [address] 18 Jun, 2012 [facility] [address] [id number] [place] [address] Jun, [facility] [address] [id number] [place] [address] Jun, [facility] [address] [id number] [place] [address] Jun, [facility] [address] [id number] [place] [address] Jun, [facility] [address] [id number] [place] [address] Jun, [facility] [address] [id number] [place] [address] Jun, IMMUNIZATIONS No Known Immunizations SOCIAL HISTORY Never Assessed REASON FOR VISIT PLAN OF CARE VITAL SIGNS Height 66 in 2013-10-30 Weight 252.6 lbs 2013-10-30 Temperature 99.6 degrees Fahrenheit 2013-10-30 Heart Rate 80 bpm 2013-10-30 Respiratory Rate 20 2013-10-30 Blood pressure systolic 124 mmHg 2013-10-30 Blood pressure diastolic 92 mmHg 2013-10-30 MEDICATIONS Unknown Medications RESULTS No Results PROCEDURES No Known procedures INSTRUCTIONS MEDICATIONS ADMINISTERED No Known Medications MEDICAL (GENERAL) HISTORY Type Description Date Medical History cerebral palsy- had spinal m enningitis as a small child and then dx with CP Medical History Hypothyroidism Medical History hypertension Medical History hypokalemia Medical History obesity Medical History Abnormal thyroid ultrasound Surgical History parathyroidectomy 2007 Surgical History orthopedic surgery-Rt ankle fracture wit h hardware 2001 Hospitalization History Surgery(s) only Hospitalization History kidney or urinary tract infection 0 12/2017
--- OUTSIDE RECORDS SUMMARY | 2019-09-17 05:08 | XMS REPORT ---
Author Author Gisel Khan Doctor Organization [facility] Address Unknown Phone Unavailable Care Team Providers Care Powder Worker Tnt Name Role Phone Migration, Doctor Unavailable Unavailable PROBLEMS Type Condition ICD9-CM Code BZH40-IE Code Onset Dates Condition S tatus SNOMED Code Problem History of hypokalemia Z86.39 Active 51083989 Problem History of goiter Z86.39 Active 37 90534 Problem Elevated TSH R94.6 Active 1551934 05 Problem Cerebral palsy G80.9 Active 62715 8000 Problem Essential hypertension I10 Active 05478766 Problem Hypothyroidism E03.9 Active 53801 008 ALLERGIES No Information ENCOUNTERS Encounter Location Date Diagnosis [place] [address] [address] 13 Aug, 2019 Hypothyroidism E03.9 [facility] [address] [address] 10 Aug, 2019 Cerebral palsy G80.9 ; Hypothyroidism E03.9 ; History of hypokalemia Z86.39 and Encounter for immunization Z23 [facility] [address] [address] Apr, Hypothyroidism E03.9 [facility] [address] [address] Mar, [facility] [address] [address] Mar, Essential hypertension I10 [facility] [address] [address] Feb, [facility] [address] [address] Feb, Essential hypertension I10 [facility] [address] [address] Feb, Essential hypertension I10 [facility] [address] [address] Feb, Essential hypertension I10 [facility] [address] [address] Feb, [facility] [address] [address] Jan, Essential hypertension I10 and Hypothyro idism E03.9 [facility] [address] [address] Dec, [place] [address] [address] November, Hypothyroidism E03.9 [place] [address] [address] Aug, Essential hypertension I10 [place] [address] [address] Aug, Hypothyroidism E03.9 [place] [address] [address] Aug, BMI 45.0-49.9, adult Z68.42 ; Essential hypertension I10 ; Cerebral palsy G80.9 and Hypothyroidism E03.9 [place] [address] [id number] [place] [id number] Jun, [place] [address] [address] Feb, [place] [address] [address] Dec, History of UTI Z87.440 ; Hypokalemia E87 .6 ; BMI 45.0-49.9, adult Z68.42 and Hypothyroidism E03.9 [place] [address] [address] November, Hypothyroidism E03.9 [facility] [address] [address] November, Essential hypertension I10 ; Hypothyroid ism E03.9 ; History of hypokalemia Z86.39 and BMI 45.0-49.9, adult Z68.42 [place] [address] [address] November, [place] [address] [place] [id number] Jun, [place] [address] [address] May, History of hypokalemia Z86.39 [place] [address] [address] Apr, Hypothyroidism E03.9 [place] [address] [address] Apr, Essential hypertension I10 ; Hypothyroid ism E03.9 ; Cerebral palsy G80.9 ; History of hypokalemia Z86.39 and History of goiter Z86.39 [place] [address] [address] Dec, Hypothyroidism E03.9 [place] [address] [address] Dec, Hypothyroidism, unspecified E03.9 [place] [address] [address] 13 Dec, 2016 Morbid obesity due to excess calories E6 6.01 ; Essential hypertension I10 ; Cerebral palsy G80.9 and Hyperlipidemia, unspecified hyperlipidemia type E78.5 [place] [address] [address] Oct, Hyperlipidemia, unspecified hyperlipidem ia type E78.5 [place] [address] [address] May, Essential hypertension I10 ; Hypothyroid ism E03.9 and Hyperlipidemia, unspecified hyperlipidemia type E78.5 [place] [address] [address] May, [place] [address] [place] [address] May, [facility] [address] [address] Feb, [facility] [address] [address] Feb, Essential hypertension I10 and Hypothyro idism E03.9 [facility] [address] [address] Jan, [facility] [address] [address] Jul, [facility] [address] [address] Jul, [facility] [address] [address] Jul, Essential hypertension I10 and Hypothyro idism E03.9 [place] [address] [address] May, Hypothyroidism, unspecified E03.9 [facility] [address] [address] May, Essential hypertension I10 and Hypothyro idism E03.9 [facility] [address] [address] Feb, [facility] V70.0 ; Essential hypertension, benign 401.1 and Unspecified hypothyroidism 244.9 [facility] [address] [address] Jan, [facility] [address] [address] November, [place] [address] [address] November, Hypothyroid 244.9 and Essential hyperten liam, benign 401.1 [facility] [address] [address] Oct, [facility] [address] [id number] [place] [address] Oct, [facility] [address] [id number] [place] [address] Jun, [facility] [address] [id number] [place] [address] Jun, [facility] [address] [id number] [place] [address] May, [facility] [address] [id number] [place] [address] May, [facility] [address] [id number] [place] [address] May, [facility] [address] [id number] [place] [address] May, [facility] [address] [id number] [place] [address] May, [facility] [address] [id number] [place] [address] May, [facility] [address] [id number] [place] [address] Apr, [facility] [address] [id number] [place] [address] Apr, [facility] [address] [id number] [place] [address] Oct, [facility] [address] [id number] [place] [address] Oct, [facility] [address] [id number] [place] [address] Sep, [facility] [address] [id number] [place] [address] Sep, [facility] [address] [id number] [place] [address] 14 Aug, 2013 [facility] [address] [id number] [place] [address] 14 Aug, 2013 [facility] [address] [id number] [place] [address] Jun, [facility] [address] [id number] [place] [address] Jun, [facility] [address] [id number] [place] [address] May, [facility] [address] [id number] [place] [address] May, [facility] [address] [id number] [place] [address] Mar, [facility] [address] [id number] [place] [address] Jan, [facility] [address] [id number] [place] [address] Dec, [facility] [address] [id number] [place] [address] Oct, [facility] [address] [id number] [place] [address] 29 Sep, 2012 [facility] [address] [id number] [place] [address] 25 Sep, 2012 [facility] [address] [id number] [place] [address] Sep, [facility] [address] [id number] [place] [address] Sep, [facility] [address] [id number] [place] [address] Sep, [facility] [address] [id number] [place] [address] Jun, [facility] [address] [id number] [place] [address] Jun, [facility] [address] [id number] [place] [address] Jun, [facility] [address] [id number] [place] [address] Jun, [facility] [address] [id number] [place] [address] Jun, [facility] [address] [id number] [place] [address] Jun, [facility] [address] [id number] [place] [address] Jun, [facility] [address] [place] [id number] [place] [address] Jun, [facility] [address] [place] [id number] [place] [address] Jun, [facility] [address] [id number] [place] [address] Jun, IMMUNIZATIONS No Known Immunizations SOCIAL HISTORY Never Assessed REASON FOR VISIT PLAN OF CARE VITAL SIGNS MEDICATIONS Unknown Medications RESULTS No Results PROCEDURES [...] surgery-Rt ankle fracture wit h hardware 2001 Surgical History Thyroid removed 04/28 Hospitalization History Surgery(s) only Hospitalization History kidney or urinary tract infection 0 12/2017
--- OUTSIDE RECORDS SUMMARY | 2019-09-17 05:08 | XMS REPORT ---
Author Author [employer]. Organization [employer] Address [address] [address] Care Team Providers Care Compressed [employer] Worker Name Role Phone JEAN CARLOS SOTO Unavailable Unavailable PHYLLIS TIRADO Unavailable Unavailable MADL, MAYRA Unavailable JEAN CARLOS SOTO Unavailable MADL, MAYRA Unavailable MADL, MAYRA Unavailable ABIGAIL VIGILIMA Unavailable VIGIL, JAIMA Unavailable MADL, MAYRA Unavailable KANNAN EDMOND Unavailable Migration, Doctor Unavailable Unavailable Migration, Doctor Unavailable Unavailable RODRIGO CENTENO APRN Unavailable Unavailable MELANY KATZ, JOCY Bhatti Unavailable Unavailable NAOMI WEBSTER Unavailable Unavailable Migration, Doctor Unavailable Unavailable Migration, Doctor Unavailable Unavailable [facility] Unavailable Unavailable BROWN, JESSA Unavailable Unavailable BROWN, JESSA Unavailable Unavailable Migration, Doctor Unavailable Unavailable Migration, Doctor Unavailable Unavailable Migration, Doctor Unavailable Unavailable Migration, Doctor Unavailable Unavailable Allergies Normalized Allergy Reported Date of Reaction(s) Care Provider Facility Allergy Type classification allergen Allergy Onset DA (7 Unclassified No Known Drug 09-17-2008 - no information RODRIGO CENTENO Not Available sources.) Allergies (15385) no information Unclassified NO KNOWN DRUG UNKNOWN [facility] (6 sources.) ALLERGIES LEISURE [address] ([address]) Medications Current Medications Medication Ingredient Drug Dose Dates Status Sig Sig Care Class(es) (Normalized) (Original) Provid er lisinopril Lisinopril Angiotensin 10 mg 06-17-20 Active take 1 Lisinopril no 10 mg oral Translation Converting 14 tablet by 10 mg take 1 name tablet (1 s: [ Enzyme mouth once tablet by (no source.) Lisinopril Inhibitor daily in the Oral route 1 marck ne) 10 mg] morning time per day Take in am Jun, Active no potassium no 20 mEq 07-06-20 Active no Potassium no information chloride information 18 information Chloride ER name (1 source.) 10MEQ ER (no Orally Once phone) a day 2 tablets with food 24h Jun, 30 days Active Completed/Discontinued Medications Medication Ingredient Drug Dose Dates Status Sig Sig Care Class(es) (Normalized) (Original) Provid er no Calcium no 10-11-19 Complete no Calcium (no information Citrate information 17 d information Citrat e phone) (2 (Citracal (Citracal sources.) With With Vitamin Vitamin D D Tablet) 1 Tablet) 1 Each Tablet, Each Not Tablet, Not Applicable Applicable Discontinued cephalexin cephalexin Cephalospor 500 mg 09-09-19 Complete take 1 Cephalexin Peter 500 mg oral in 17 - d capsule by (Keflex) 500 J Calender Supervisor capsule (2 Antibacteri 10-11-19 mouth every Mg Capsule, Juan Jose s sources.) al 17 eight hours 500 Mg Oral (no Every 8HRS phone) 09/08/16 Discontinued 500 mg 09-08-2016 Completed take 1 Cephalex Peter J - capsul in Calender Supervisor 10-10-2016 e by (Keflex) Centeno mouth 500 Mg (no every Capsule, phone) eight 500 Mg hours Oral Every 8HRS 09/08/16 Disconti nued no Cyclobenzap no 06-03-20 Complete no Cyclobenzapr Ion information rine Hcl 10 information 09 - d information in e Hcl 10 W (2 Mg Tablet, 10-11-19 Mg Tablet, 1 Eppler sources.) 1 Each Oral 17 Each Oral (no Three Times phone) A Day And Prn 06/03/09 Discontinued no Fish Oil no 1000 10-11-19 Complete no Fish Oil (no information 1,000 Mg information mg 17 d information 1,000 Mg phone) (2 Cap, Not Cap, Not sources.) Applicable Applicable Discontinued no Multivitami no 10-11-19 Complete no Multivitamin (no information ns information 17 d information s (Aleida mins phone) (2 (Vitamins (Multi-Vit)) sources.) (Multi-Vit) 1 Ea Tablet, ) 1 Ea Not Tablet, Not Applicable Applicable Discontinued no Naproxen no 06-03-20 Complete no Naproxen Ion information (Naprosyn) information 09 - d information (Na prosyn) W (2 500 Mg 04-02-20 500 Mg Eppler sources.) Tablet, 1 17 Tablet, 1 (no Each Oral Each Oral phone) Twice A Day 06/03/09 Discontinued ondansetron ondansetron Serotonin-3 4 mg 10-12-19 Complete take 1 Ondansetron Rahul 4 mg Receptor 17 d tablet under (Zofran Odt) T disintegrat Antagonist the tongue 4 Mg Bruegg ing oral every four Tab.rapdis 4 emann tablet (2 hours as Mg (no sources.) needed for SUBLINGUAL phone) nausea, then Every 4HRS take 1 as needed tablet under for the tongue Nausea/Vomit as needed ing 10 Tab for nausea 10/11/16 4 mg 10-11-2016 Completed take 1 Ondanset Rahul T tablet suma Brueggem under (Zofran danna (no the Odt) 4 phone) tongue Mg every Tab.rapd four is 4 Mg hours SUBLINGU as AL Every needed 4HRS as for needed nausea for , then Nausea/V take 1 omiting tablet 10 Tab under 10/11/16 the tongue as needed for nausea phenazopyri phenazopyri no 100 mg 12-19-19 Complete take 1 P henazopyrid Piedad dine dine information 18 d tablet by ine Hcl Flexo Operator hydrochlori mouth every (Pyridium) Alecia de 100 mg eight hours 100 Mg (no oral tablet Tablet 100 phone) (2 Mg ORAL sources.) Every 8HRS 6 Tab 12/18/17 sulfamethox sulfamethox Dihydrofola 12-19-19 Complete take 20 Sulfamethoxa Yolette K azole 800 azole / te 18 d tablets by zole/Trimeth R leopoldo mg / trimethopri Reductase mouth twice oprim (no trimethopri m Inhibitor daily (Bactrim Ds phone) m 160 mg Antibacteri Tablet) 1 oral tablet al, Each Tablet (3 Sulfonamide 1 Each ORAL sources.) Antimicrobi Twice A Day al 20 Tab 02/21/18 Problems Active Problems Problem Normalized Date of Normalized Normalized Provider Fac ility Classification Problem(s) Problem Problem Problem Sta tus Onset/Resoluti Duration on Unclassified Body mass Chronic Active MAYRA MADL Communi ty (20 sources.) index (BMI) [address] [facility] 45.0-49.9, of [facility] ([address]) Translations: [ - BMI 45.0-49.9, adult Z68.42, - BMI 45.0-49.9, adult Z68.42] Immunizations Encounter for Episodic Active Doctor Comm unity and screening immunization Migration [facility] for infectious Translations: of [facility] disease (2 [ - Encounter [place] ([address]83) sources.) for immunization Z23] Open wounds of Laceration Episodic Active YOLETTE REYNOSO DO N ot Available extremities (1 without (75531) source.) foreign body of right index finger without damage to nail, initial encounter Other Morbid Chronic Active MAYRA SANDERS [facility] nutritional; (severe) [address] [place] [address] endocrine; and obesity due to of [facility] metabolic excess [place] ([address]51) disorders (10 calories sources.) Translations: [ - Morbid obesity due to excess calories E66.01, - Morbid obesity due to excess calories E66.01] Nausea and Nausea and Episodic Active JEAN CARLOS SOTO Via risti vomiting (5 vomiting [facility] sources.) Translations: [place] [ NAUSEA WITH (94669) VOMITING, UNSPECIFIED] Genitourinary Personal Episodic Active [facility] symptoms and history of [address] [place] [address] ill-defined urinary of [facility] conditions (11 (tract) [place] ([address]) sources.) infections Translations: [ - History of UTI Z87.440] Abdominal pain Right lower Episodic Active no name Not A vailable (3 sources.) quadrant pain (98475) Urinary tract Urinary tract Episodic Active JEAN CARLOS SOTO [facility] [place] infections (8 infectious [facility] sources.) disease [place] Translations: (23905) [ - History of UTI Z87.440, URINARY TRACT INFECTION, SITE NOT SPECIF] Unclassified no information no information Active JEAN CARLOS MARTINEZ [facility] [place] ([address] sources[address] [place] [address] ([address]) Past or Other Problems Problem Normalized Date of Normalized Normalized Provider Fac ility Classification Problem(s) Problem Problem Problem Sta tus Onset/Resoluti Duration on External cause Bitten or no information no information RODRIGO BRYANT Not Available codes: stung by (52581) Natural/enviro nonvenomous nment (2 insect and sources.) other nonvenomous arthropods, initial encounter External Contact with no information no information YOLETTE EDGARDO , DO Not Available Injury - Cut / other (36599) Daniels (1 nonpowered source.) hand tool, initial encounter NEGATED Influenza due Episodic Completed RAHUL Not Avai lable no to other YOLETTE , (76991) information (3 identified MD sources.) influenza virus with gastrointestin al manifestations Superficial Insect bite Episodic Completed RODRIGO CENTENO Not Av ailable injury; (nonvenomous) (81400) contusion (6 of left sources.) forearm, initial encounter Translations: [ INSECT BITE OF OTHER SPECIFIED PART OF N] External cause Other external no information no information PET ER CENTENO Not Available codes: cause status (88125) Unspecified (2 sources.) External cause Unspecified no information no information RODRIGO CENTENO Not Available codes: Place place in (15265) of occurrence unspecified (2 sources.) non-[facility] (private) residence as the place of occurrence of the external cause Procedures Procedure Normalized Procedure Procedure Result Performer Facility Date 12-29-2017 Collection venous no information no name (no phone) [facility] blood venipuncture [facility] (74366) 12-29-2017 LAB NOT BILLED BY no information [facility] (31957) 11-25-2017 LAB NOT BILLED BY no information no name (no phone) [facility] (66041) 12-29-2017 Urnls dip stick/tablet no information no name (no p kinsey) [facility] rgnt auto w/o [facility] (39444) Immunizations Normalized Immunization Date Notes Care Provider Facili ty Immunization influenza, 08-20-2019 no information no name [facility] injectable, [facility] quadrivalent, - [place] ([address]) contains preservative influenza, seasonal, 06-14-2012 no information no name [facility] hospital injectable [facility] (51275) tetanus and 12-08-2006 no information no name [facility] diphtheria toxoids, [facility] adsorbed, [facility] preservative free, (60003) for adult use (2 Lf of tetanus toxoid and 2 Lf of diphtheria toxoid) tetanus and 03-20-2002 no information no [facility], [facility] adsorbed, - [facility] preservative free, (22976) for adult use (2 Lf of tetanus toxoid and 2 Lf of diphtheria toxoid) tetanus toxoid, 02-21-2018 - no information JEAN CARLOS SOTO [address] [address] [facility] reduced diphtheria 02-21-2018 [place] ([address]) toxoid, and acellular pertussis vaccine, adsorbed Vaccination no information JEAN CARLOS SOTO [address] [address] [facility] Translations: [ [place] ([address]) vaccine] Results Test Name Value Interpretation Reference Range Date Time Fa cility (Normalized) (Normalized) (Medline Reference) No panel information on null no information no information (no code) Via [facility] (66921) No panel information on 2019-04-04 Free T4 1.4 ng/dL (N) 0.9 - 2.2 ng/dL [facility] [Mass/Vol] [facility] (20364) TSH Qn 0.22 m[IU]/L (L) 0.4 - 4 m[IU]/L [facility] (82711) No panel information on 2018-12-07 Free T4 1.0 ng/dL (N) 0.9 - 2.2 ng/dL [facility] [Mass/Vol] [facility] (07938) TSH Qn 7.08 m[IU]/L (H) 0.4 - 4 m[IU]/L [facility] (05158) No panel information on 2017-12-29 Bacteria SEE NOTE (no code) [facility] identified [facility] ([address]709[facility] Thyrotropin Qn 3.85 m[IU]/L (N) 0.4 - 4 m[IU]/L [facility] (14507) venous blood hemoglobin measurement (mass/volume) on 2017-12-18 Hemoglobin (HGB) 13.7 g/dL (no code) 12 - 18 g/dL Via [facility] (53740) urine urobilinogen measurement by automated test strip (mass/volume) on 2017-12-18 Urine, 1 (no code) Via [facility] urobilinogen [facility] (30820) urine total bilirubin detection by test strip on 2017-12-18 Urine, bilirubin no information (no code) Via [facility] (23808) urine protein assay by test strip, semi-quantitativ e on 2017-12-18 Urine, protein 2+ (*) Via [facility] (98066) urine ph measurement by test strip on 2017-12-18 Urine, pH 7 [pH] (no code) 4.6 - 8 [pH] [facility] (12537) urine nitrite detection by test strip on 2017-12-18 Urine, nitrite no information (no code) Via [facility] (23551) urine ketones detection by automated test strip on 2017-12-18 Urine, ketones 3+ (*) Via [facility] (45935) urine glucose detection by automated test strip on 2017-12-18 Urine, glucose no information (no code) Via [facility] () urine color determination on 2017-12-18 Urine, color YELLOW (no code) [facility] (57957) urine clarity determination on 2017-12-18 Urine, clarity CLEAR (no code) [facility] (29017) squamous epithelial cells detection in urine sediment by light microscopy on 2017-12-18 Urine, squamous no information (no code) Via [facility] cells [facility] in sediment [place] (60909) specific gravity of urine by test strip on 2017-12-18 Urine, specific 1.010 (*) [facility] gravity [facility] (00019) serum or plasma urea nitrogen/creatin ine mass ratio on 2017-12-18 BUN/Creatinine 9 mg/mg (no code) 10 - 20 mg/mg [facility] sti Ratio [facility] (51575) serum or plasma urea nitrogen measurement (mass/volume) on 2017-12-18 Urea nitrogen 7 mg/dL (no code) 7 - 20 mg/dL Via [facility] (69558) serum or plasma total bilirubin measurement (mass/volume) on 2017-12-18 Bilirubin 2.7 mg/dL (H) 0.3 - 1.9 mg/dL Via [facility] (total) [facility] (23636) serum or plasma sodium measurement (moles/volume) on 2017-12-18 Sodium 137 mmol/L (no code) 135 - 147 mmol/L Via [facility] (20534) serum or plasma protein measurement (mass/volume) on 2017-12-18 Protein 7.6 g/dL (no code) 6.4 - 8.3 g/dL Via [facility] (36026) serum or plasma potassium measurement (moles/volume) on 2017-12-18 Potassium 2.8 mmol/L (L) 3.5 - 5.1 mmol/L Via [facility] (52541) serum or plasma glucose measurement (mass/volume) on 2017-12-18 Glucose 103 mg/dL (no code) 60 - 125 mg/dL Via [facility] (01470) serum or plasma creatinine measurement with calculation of estimated glomerular filtration rate on 2017-12-18 eGFR (non-black) no information (no code) [facility] (23771) serum or plasma creatinine measurement (mass/volume) on 2017-12-18 Creatinine 0.74 mg/dL (no code) [facility] (97489) serum or plasma chloride measurement (moles/volume) on 2017-12-18 Chloride 98 mmol/L (no code) 95 - 106 mmol/L Via [facility] (32958) serum or plasma calcium measurement (mass/volume) on 2017-12-18 Calcium 9.3 mg/dL (no code) 9 - 11 mg/dL [facility] (30508) serum or plasma aspartate aminotransferase measurement (enzymatic activity/volume) on 2017-12-18 Aspartate 33 U/L (no code) 10 - 34 U/L [facility] aminotransferase [facility] (AST) [place] (39962) serum or plasma anion gap determination (moles/volume) on 2017-12-18 Anion gap 15 mmol/L (H) 3 - 11 mmol/L [facility] (87388) serum or plasma alkaline phosphatase measurement (enzymatic activity/volume) on 2017-12-18 Alkaline 100 U/L (no code) 44 - 147 U/L [facility] phosphatase [facility] (ALP) [place] (43959) serum or plasma albumin measurement (mass/volume) on 2017-12-18 Albumin 4.0 g/dL (no code) 3.5 - 5.5 g/dL Via [facility] (83739) serum or plasma alanine aminotransferase measurement (enzymatic activity/volume) on 2017-12-18 Alanine 48 U/L (no code) 10 - 40 U/L [facility] aminotransferase [facility] (ALT) [place] (66022) renal epithelial cells detection in urine sediment by light microscopy on 2017-12-18 Renal epithelial NONE (no code) Via [facility] cells detection Hospital in urine [place] sediment by (80344) light microscopy mucus detection in urine sediment by light microscopy on 2017-12-18 Urine, mucus no information (no code) Via [facility] presence in [facility] (21780) leukocyte esterase on 2017-12-18 Urine, leukocyte 1+ (*) [facility] esterase [facility] (27660) erythrocytes detection in urine sediment by light microscopy on 2017-12-18 Urine, 4+ (*) [facility] erythrocytes [facility] (68067) crystals detection in urine sediment by light microscopy on 2017-12-18 Urine, crystals NONE (no code) [facility] presence in [facility] (60717) complete urinalysis with reflex to culture on 2017-12-18 Complete YES (no code) [facility] urinalysis with Hospital reflex to [place] culture (37865) casts detection in urine sediment by light microscopy on 2017-12-18 Urine, casts in NONE (no code) Via [facility] (63715) carbon dioxide on 2017-12-18 CO2 24 mmol/L (no code) 23 - 29 mmol/L Via [facility] (53116) blood neutrophils automated count (number/volume) on 2017-12-18 Neutrophils 4.6 10*3/uL (no code) 1.5 - 7.8 Via [facility] 10*3/uL [facility] (65629) blood monocytes/100 leukocytes on 2017-12-18 Monocytes/100 14 % (H) 2 - 8 % [facility] leukocytes [facility] (23909) blood monocytes automated count (number/volume) on 2017-12-18 Monocytes 0.9 10*3/uL (no code) 0.2 - 1.1 Via [facility] 10*3/uL [facility] (83038) blood lymphocytes automated count (number/volume) on 2017-12-18 Lymphocytes 1.0 10*3/uL (no code) 0.85 - 4.1 Via [facility] 10*3/uL [facility] (62283) blood leukocytes automated count (number/volume) on 2017-12-18 WBC (Leukocytes) 6.6 10*3/uL (no code) 3.8 - 10.8 Via [facility] 10*3/uL [facility] (79544) blood hematocrit (volume fraction) on 2017-12-18 Hematocrit (HCT) 38 % (no code) 39 - 51 % Via [facility] (27809) blood erythrocytes automated count (number/volume) on 2017-12-18 Erythrocytes 4.39 10*6/uL (no code) 4.2 - 6.1 Via [facility] (RBC) 10*6/uL [facility] (40473) bacteria detection in urine sediment by light microscopy on 2017-12-18 Urine, bacteria TRACE (no code) [facility] in [facility] (34997) automated urine sediment leukocyte count by microscopy (number/high power field) on 2017-12-18 Urine, no information (*) [facility] leukocytes [facility]77403[facility] automated urine sediment erythrocyte count by microscopy (number/high power field) on 2017-12-18 Urine, no information (*) [facility] erythrocytes in [facility] sediment [facility] (57505) automated erythrocyte mean corpuscular volume on 2017-12-18 MCV 86 fL (no code) 80 - 100 fL [facility] (37536) automated erythrocyte mean corpuscular hemoglobin concentration measurement (mass/volume) on 2017-12-18 MCHC 36 g/dL (no code) 32 - 36 g/dL [facility] (79524) automated erythrocyte mean corpuscular hemoglobin (mass per erythrocyte) on 2017-12-18 MCH 31 pg (no code) 27 - 31 pg [facility] (84514) automated erythrocyte distribution width ratio on 2017-12-18 RDW-CA 13.2 % (no code) 11 - 15 % [facility] (13792) automated eosinophil count on 2017-12-18 Eosinophils 0.1 10*3/uL (no code) 0.05 - 1.5 Via [facility] 10*3/uL [facility] (11187) automated blood platelet mean volume measurement on 2017-12-18 Platelet mean 9.6 fL (no code) 7.2 - 11.7 fL Via [facility] volume (PMV) [facility] (45941) automated blood platelet count (count/volume) on 2017-12-18 Platelets 164 10*3/uL (no code) 150 - 400 [facility] [place] 10*3/uL [facility] (52448) automated blood neutrophils/100 leukocytes on 2017-12-18 Neutrophils/100 69 % (no code) 40 - 60 % Via [facility] leukocytes [facility] (54782) automated blood lymphocytes/100 leukocytes on 2017-12-18 Lymphocytes/100 15 % (no code) 20 - 40 % Via [facility] leukocytes [facility] (19393) automated blood eosinophils/100 leukocytes on 2017-12-18 Eosinophils/100 1 % (no code) 1 - 4 % Via [facility] leukocytes [facility] (03006) automated blood basophils/100 leukocytes on 2017-12-18 Basophils/100 1 % (no code) 0.5 - 1 % Via [facility] (19309) automated blood basophil count (count/volume) on 2017-12-18 Basophils 0.0 10*3/uL (no code) 0 - 0.2 10*3/uL Via [facility] (46038) No panel information on 2017-11-25 Thyroperoxidase 304 [IU]/mL (H) 0 - 35 [IU]/mL [facility] (02563) Thyrotropin Qn 6.60 m[IU]/L (H) 0.4 - 4 m[IU]/L [facility] (33034) No panel information on 2017-04-21 Albumin mass 4.3 g/dL (no code) 3.4 - 5.4 g/dL 04-21-2017 Not Available conc (35646) Albumin/Globulin 1.5 {ratio} (no code) 1 - 2.5 {ratio} 7 Not Available mass ratio 09: (45871) ALP enzyme 86 U/L (no code) 44 - 147 U/L 04-21-2017 Not Avai lable act/vol : (14407) ALT enzyme 22 U/L (no code) 4 - 40 U/L 04-21-2017 Not Availa ble act/vol 09: (76355) AST enzyme 19 U/L (no code) 10 - 34 U/L 04-21-2017 Not Avail able act/vol 09: (86216) Bilirubin mass 0.6 mg/dL (no code) 0.1 - 1.2 mg/dL 04-21-2017 N ot Available conc 09: (59811) Calcium mass 9.9 mg/dL (no code) 8.5 - 10.2 mg/dL 04-21-2017 No t Available conc 09: (06638) Chloride molar 98 mmol/L (no code) 95 - 106 mmol/L 04-21-2017 N ot Available conc : (68252) CO2 molar conc 25 mmol/L (no code) 23 - 29 mmol/L 04-21-2017 No t Available 09: (64196) Cobalamin 761 pg/mL (no code) 200 - 900 pg/mL 04-21-2017 Not Av ailable (Vitamin B12) 10: (10097) mass conc Creatinine mass 0.81 mg/dL (no code) 04-21-2017 Not Availa ble conc 09: (31588) GFR/1.73 sq M 93 (no code) 90 - 120 04-21-2017 Not Avai lable predicted among mL/min/{1.73_m2} mL/min/{1.73_m2} 09: (69900) blacks MDRD vol rate/area (S/P/Bld) GFR/1.73 sq M 81 (no code) 90 - 120 04-21-2017 Not Avai lable predicted among mL/min/{1.73_m2} mL/min/{1.73_m2} 09: (52664) non-blacks MDRD vol rate/area (S/P/Bld) Globulin 2.8 g/dL (no code) 2 - 3.5 g/dL 04-21-2017 Not Avail able Calculated mass 09: (16913) conc (S) Glucose mass 113 mg/dL (H) 60 - 125 mg/dL 04-21-2017 Not Available conc 09:-0400 (17643) Potassium molar 3.8 mmol/L (no code) 3.7 - 5.2 mmol/L 04-21-2017 Not Available conc (43620) Protein mass 7.1 g/dL (no code) 6.4 - 8.3 g/dL 04-21-2017 Not Available conc (30091) Sodium molar 141 mmol/L (no code) 135 - 145 mmol/L 04-21-2017 N ot Available conc (61918) Thyrotropin Qn 9.880 (H) 04-21-2017 Not Availab le : (57619) Urea nitrogen 14 mg/dL (no code) 7 - 20 mg/dL 04-21-2017 Not A vailable mass conc (09876) Urea 17 mg/mg (no code) 6 - 22 mg/mg 04-21-2017 Not Avail able nitrogen/Creatin (29521) ine mass ratio Vitamin D, 23.0 (L) 04-21-2017 Not Available 25-Hydroxy : (15908) Vital Signs Vital Sign Value Interpretation Reference Date Time Care Prov ider Facility (Normalized) (Normalized) Range BMI (Body Mass 45.93 kg/m2 (no code) 15 - 25 kg/m2 12-29-2017 TA MARCOSYA TOMMY Community Index) 12:000 48713 [facility] (65308) BMI (Body Mass 46.8 kg/m2 (no code) 15 - 25 kg/m2 11-25-2017 ELIJAH VIGIL Community Index) 15:00 43400 [facility] (82294) Body height 167.64 cm (no code) cm 10-30-2013 Doctor [facility]munity 17:35 Migration [facility] (49936) Body 97.7 [degF] (no code) 97.8 - 99.0 12-29-2017 MAYRA [facility] Temperature [degF] 12:[address] [place] [address] ([id number]) Body 98.2 [degF] (no code) 97.8 - 99.0 11-25-2017 [facility] Temperature [degF] 15:00-0400 [id number] [facility] ([id number]) Body 99.6 [degF] (no code) 97.8 - 99.0 10-30-2013 Doctor [facility] temperature [degF] 17:35-0400 [facility] ([id number]) Body weight 114.58 kg (no code) kg 10-30-2013 Doctor [facility] 17:35-0400 [facility] ([id number]) Height 167.64 cm (no code) cm 12-29-2017 MAYRA MADL [facility]munity 12:00-[address] [place] [address] ([id number]) Height 167.64 cm (no code) cm 11-25-2017 ABIGAILJACQUI VIGIL [facility] 15:000400 [address] [place] [address] ([id number]) Weight 129.09 kg (no code) kg 12-29-2017 MAYRA MADL [facility] 12:00-[address] [place] [address] ([id number]) Weight 131.54 kg (no code) kg 11-25-2017 IVON OLIVEROSER C ommunity 15:00-[address] [place] [address] ([id number]) Interventions No Information Plan of Treatment The data below is from unstructured sources Discharge Date 06/11/16 8:08pm Disposition 01 HOME, SELF-CARE Condition at Discharge Stable Instructions/Education Provided Ankl e Sprain (DC) Prescriptions See Medication Section Referrals JEAN CARLOS SOTO MD - [facility] Physician Additional Instructions/Education 1. Return to ER for any concerns 2. Tylenol and Motrin as needed for pain 3. Use an Chai wrap to the ankle and an i ce pack intermittently for the next 2 days and keep it elevated All discharge instructions reviewed with patient and/or family. Voiced understanding. Discharge Date 12/18/17 6:02pm Disposition 01 HOME, SELF-CARE Condition at Discharge Stable Instructions/Education Provided Hypo kalemia (DC) Urinary Tract Infection, Adult (DC) Prescriptions See Medication Section Referrals JEAN CARLOS SOTO MD Order Date: Primary Care Physician Address: [address] [facility], [place] [id number] Additional Instructions/Education Ta ke medication as prescribed. Resume taking your potassium 10 mEq, 1 tablet twice daily, Schedule follow-up with Dr. Mosquera for one week. Increase water intake, drink 1 bottle of water every 2 hours while awake. Empty bladder frequently. Return to emergency department for fever greater than 101??? not relieved with Tylenol or ibuprofen, new problems or concerns. All discharge instructions reviewed with patient and/or family. Voiced understanding. Activity Details Follow Up 3 months or as indicated b y lab and us Reason:thyroid Discharge Date 02/21/18 7:06pm Disposition 01 HOME, SELF-CARE Condition at Discharge Stable Instructions/Education Provided Diph theria and Tetanus Toxoids, and Acellular Pertussis Vaccine Wound Care (DC) Prescriptions See Medication Section Referrals JEAN CARLOS SOTO MD Order Date: Primary Care Physician Address: [address] [place] [address] [id number] Additional Instructions/Education CL COLETTE WOUND TWICE A DAY WITH ANTIBACTERIAL SOAP AND WATER, APPLY ANTIBIOTIC OINTMENT AND FRESH DRESSING TWICE A DAY OTHERWISE DO NOT GET WET UNTIL SCAB IS FORMED TYLENOL AND MOTRIN NEEDED FOR PAIN FOLLOW UP WITH YOUR DR NEEDED All discharge instructions reviewed with patient and/or family. Voiced understanding. Activity Details Follow Up 4 Weeks, prn Reason:pendulisses andujar labs Activity Details Follow Up if not improving with PCP or reg follow up Reason: Goals No Information Social History No Information Functional Status The data below is from unstructured sourcesNo functional status results.No functional status information available.No functional status information available.No functional status information available.No functional status information available. Mental Status No Information Encounters Encounter Normalized Encounter Encounter Diagnosis Care Provi pierre Organization Date Type 12-29-2017 (HOSP F/U) Hospital Personal history of MAYRA SANDERS (no phone) [facility] [place] - Follow-up urinary (tract) (no phone) 12-29-2017 infections - 12-29-2017 08-21-2018 (IPT) Internal PCP Body mass index (BMI) NAOMI CORNELIUS (no [facility] [place] - Transfer 45.0-49.9, adult phone) (no phone ) 08-21-2018 - 08-21-2018 04-04-2018 (IPT) Internal PCP no information MARLEY POWERS (no [facility] [place] - Transfer phone) CARMELINA MEEK (no (no marck ne) 04-04-2018 phone) - 04-04-2018 [facility]-20-2019 [facility] Cerebral palsy, NAOMI WEBSTER (no [facility] (no phone) unspecified phone) 01-08-2019 [facility] [place] Essential (primary) NAOMI BEGUM (no [facility] [place] - hypertension phone) (no phone) 01-08-2019 - 01-08-2019 11-29-2017 [facility] [place] Hypothyroidism, IVON MUSA (no [facility] [place] - unspecified phone) (no phone) 11-29-2017 - 11-29-2017 11-25-2017 [facility] [place] Essential (primary) IVON ANTONIO DAVIS (no [facility] [place] - hypertension phone) (no phone) 11-25-2017 - 11-25-2017 11-24-2017 [facility] [place] no information MAYRA SANDERS (n o phone) [facility] [place] - (no phone) 11-24-2017 - 11-24-2017 04-04-2019 Consultation for Essential (primary) NAOMI WEBSTER (no [facility] [place] - laboratory medicine hypertension phone) (no p kinsey) 04-04-2019 - 04-04-2019 12-07-2018 Consultation for Hypothyroidism, NAOMI WEBSTER (no [facility] [place] - laboratory medicine unspecified phone) (no ph one) 12-07-2018 - 12-07-2018 02-21-2018 Emergency department no information YOLETTE ventura no organization name - patient visit (no phone ) 02-21-2018 12-18-2017 Emergency department no information PIEDAD arana no organization name - patient visit (no phone ) 12-18-2017 [facility] Emergency department no information no name (no marck ne) no organization name 10-11-2016 patient visit (no phone) - 10-11-2016 09-08-2016 Emergency department no information no name (no marck ne) no organization name - patient visit (no phone) 09-08-2016 NEG[facility] Patient encounter no information no name (no phone) no organization name 12-29-2017 (no phone) 12-18-2017 Patient encounter no information no name (no phone) no organization name (no phone) 11-25-2017 Patient encounter no information no name (no phone) no organization name (no phone) [facility] Patient encounter no information no name (no phone) no organization name 04-27-2017 (no phone) Patient encounter no information no name (no phone) no organ ization name (no phone) 08-20-2019 Patient encounter no information NAOMI WEBSTER (no [facility]) [facility] (no phone) 04-04-2019 Patient encounter no information no name (no phone) no organization name procedure (no phone) 04-04-2019 Patient encounter no information no name (no phone) no organization name procedure (no phone) 03-07-2019 Patient encounter no information no name (no phone) no organization name - procedure (no phone) 03-07-2019 01-08-2019 Patient encounter no information no name (no phone) no organization name procedure (no phone) 12-07-2018 Patient encounter no information no name (no phone) no organization name procedure (no phone) 08-21-2018 Patient encounter no information no name (no phone) no organization name procedure (no phone) 10-11-2016 Patient encounter no information no name (no phone) no organization name procedure (no phone) 09-08-2016 Patient encounter no information no name (no phone) no organization name procedure (no phone) 08-23-2019 Telephone encounter Hypothyroidism, NAOMI WEBSTER ( no [facility] (no phone) unspecified phone) 04-11-2019 Telephone encounter HypothyroidismNAOMI ( no [facility] - unspecified phone) (no phone) 04-11-2019 - 04-11-2019 04-09-2019 Telephone encounter no information NAOMI WEBSTER (n o [facility] - phone) (no phone) 04-09-2019 - 04-09-2019 03-09-2019 Telephone encounter Essential (primary) NAOMI JI RT ([facility] - hypertension phone) (no phone) 03-09-2019 - 03-09-2019 03-08-2019 Telephone encounter Essential (primary) NAOMI JI RT (no [place] [facility] - hypertension phone) (no phone) 03-08-2019 - 03-08-2019 03-07-2019 Telephone encounter Essential (primary) NAOMI JI RT (no [place] [facility] - hypertension phone) (no phone) 03-07-2019 - 03-07-2019 12-25-2018 Telephone encounter no information NAOMI WEBSTER (n o [employer] [facility] - phone) (no phone) 12-25-2018 - 12-25-2018 09-01-2018 Telephone encounter Essential (primary) NAOMI JI RT (no [employer] [facility] - hypertension phone) (no phone) 09-01-2018 - 09-01-2018 08-22-2018 Telephone encounter Hypothyroidism, NAOMI ELEANOR ( no [employer] [facility] - unspecified phone) (no phone) 08-22-2018 - 08-22-2018 06-13-2018 Telephone encounter no information KANNAN EDMOND ( no [place] [facility] - phone) (no phone) 06-13-2018 - 06-13-2018 03-08-2018 Telephone encounter no information KANNAN EDMOND ( no [facility] - phone) (no phone) 03-08-2018 - 03-08-2018 no information Routine general no name (no phone) no organiz ation name medical examination at (no phone) a health care facility Medical Equipment No Information Payers Normalized Payer Value Private Health Insurance no information History general Narrative - Reported Note Type Note Facility History general Narrative - Reported Type Medical cerebral palsy- had spinal menningitis as a small child and then dx with CP History Medical Hypothyroidism History Medical hypertension History Medical hypokalemia History Medical obesity History Medical Abnormal thyroid ultrasound History Surgical parathyroidectomy 2007 History Surgical orthopedic surgery-Rt ankle fracture wi th hardware 2001 History Hospitaliz Surgery(s) only ation History Hospitaliz kidney or urinary tract infection 12/10 018 ation History [facility] ([id number]) History general Narrative - Reported Note Type Note Facility History general Narrative - Reported Type Medical cerebral palsy- had spinal menningitis as a small child and then dx with CP History Medical Hypothyroidism History Medical hypertension History Medical hypokalemia History Medical obesity History Medical Abnormal thyroid ultrasound History Surgical parathyroidectomy 2007 History Surgical orthopedic surgery-Rt ankle fracture wi th hardware 2001 History Surgical Thyroid removed 04/28 History Hospitaliz Surgery(s) only atmerly History Hospitaliz kidney or urinary tract infection 12/10 018 ation [facility] ([id number]) Summary Purpose eClinicalWorks SubmissioneClinicalWorks SubmissioneClinicalWorks SubmissioneClinicalWorks SubmissioneClinicalWorks SubmissioneClinicalWorks Submission Advance Directives Directive Response Recor ded Date/Time Advance Directives No 7:00pm Health Care Power of Panel Coverer No 09/17/08 3:02pm Organ Donor Yes 09/17/08 3:02pm Resuscitation Status Full Code 06/11/16 7:00pm Directive Response Recor ded Date/Time Advance Directives No 3:17pm Health Care Power of Panel Coverer No 12/18/17 3:17pm Organ Donor No 12/18/17 3:17pm Resuscitation Status Full Code 12/18/17 3:17pm Directive Response Recor ded Date/Time Advance Directives No 3:17pm Health Care Power of Panel Coverer No 12/18/17 3:17pm Organ Donor No 12/18/17 3:17pm Discharge Instructions No hospital discharge instructions.No hospital discharge instruction information available.No hospital discharge instruction information available. Additional Source Comments This clinical document has been generated using [employer] software that has been certified by the Office of the National Coordinator for Health Information Technology (ONC 15.99.04.3023.Diam.[id number]) and the National Committee for Pelt [employer] (NCQA, as an eMeasure certified technology). FOR RECORDS PERTAINING TO PATIENTS WHO ARE OR HAVE BEEN ENROLLED IN A CHEMICAL D EPENDENCY/SUBSTANCE ABUSE PROGRAM, SOME INFORMATION MAY BE OMITTED. This clinica l summary was aggregated from multiple sources. Caution should be exercised in using it in the provision of clinical care. This summary normalizes information from multiple sources, and as a consequence, information in this document may ma terially change the coding, format and clinical context of patient data. In jose tion, data may be omitted in some cases. CLINICAL DECISIONS SHOULD BE BASED ON T HE PRIMARY CLINICAL RECORDS. [employer] provides no warranty or guara ntee of the accuracy or completeness of information in this document.The followi ng information is based on time limited clinical information UNRECOGNIZED CONTENT PROVIDED BELOW FOR UNRECOGNIZED SECTION MEDICAL (GENERAL) HISTORY Type Description Date Medical History cerebral palsy- had spinal menningitis as a small child and then dx with CP Medical History Hypothyroidism Medical History hypertension Medical History hypokalemia Medical History obesity Medical History Abnormal thyroid ultrasoun d Surgical History parathyroidectomy 2007 Surgical History orthopedic surgery- Rt ankle fracture with hardware 2001 Hospitalization History Surgery(s) only Type Description Date Medical History cerebral palsy- had spinal menningitis as a small child and then dx with CP Medical History Hypothyroidism Medical History hypertension Medical History hypokalemia Medical History obesity Surgical History parathyroidectomy 2007 Surgical History orthopedic surgery- Rt ankle fracture with hardware 2001 Hospitalization History Surgery(s) only Type Description Date Medical History cerebral palsy- had spinal menningitis as a small child and then dx with CP Medical History Hypothyroidism Medical History hypertension Medical History hypokalemia Medical History obesity Medical History Abnormal thyroid ultrasoun d Surgical History parathyroidectomy 2007 Surgical History orthopedic surgery- Rt ankle fracture with hardware 2001 Hospitalization History Surgery(s) only Hospitalization History kidney or ur inary tract infection 12/2017 UNRECOGNIZED CONTENT PROVIDED BELOW FOR UNRECOGNIZED SECTION REASON FOR VISIT hospital f/u per Estefani SolisMig
--- OUTSIDE RECORDS SUMMARY | 2019-09-17 05:08 | XMS REPORT ---
Author Author Gisel Khan Doctor Organization [facility] Address Unknown Phone Unavailable Care Team Providers Care Job Placement Officer Name Role Phone Migration, Doctor Unavailable Unavailable PROBLEMS Type Condition ICD9-CM Code UGB19-PA Code Onset Dates Condition S tatus SNOMED Code Problem History of hypokalemia Z86.39 Active 04615273 Problem History of goiter Z86.39 Active 37 13828 Problem Elevated TSH R94.6 Active 1818618 05 Problem Cerebral palsy G80.9 Active 92678 8000 Problem Essential hypertension I10 Active 14612172 Problem Hypothyroidism E03.9 Active 32025 008 ALLERGIES No Information ENCOUNTERS Encounter Location Date Diagnosis [facility] [address] [id number] [address] [place] [phone] Feb, [facility] [address] [facility] [id number] [address] [place] [address] Feb, Essential hypertension I10 [facility] [address] [facility] [id number] [address] [place] [phone] Feb, Essential hypertension I10 [facility] [address] [facility] [id number] [address] [place] [id number] Feb, Essential hypertension I10 [facility] [address] [facility] [id number] [address] [place] [id number] Feb, [facility] [address] [facility] [id number] [address] [place] [id number] Jan, Essential hypertension I10 a nd Hypothyroidism E03.9 [facility] [address] [facility] [id number] [address] [place] [id number] Dec, [facility] [address] [facility] [id number] [address] [place] [id number] November, Hypothyroidism E03.9 [facility] [address] [facility] [id number] [address] [place] [id number] Aug, Essential hypertension I10 [facility] [address] [facility] [id number] [address] [place] [id number] Aug, Hypothyroidism E03.9 [facility] [address] [facility] [id number] [address] [place] [id number] Aug, BMI 45.0-49.9, adult Z68.42 ; Essential hypertension I10 ; Cerebral palsy G80.9 and Hypothyroidism E03.9 [facility] [address] [id number] [id number] Jun, [facility] [address] [facility] [id number] [address] [place] [id number] Feb, [facility] [address] [facility] [id number] [address] [place] [address] Dec, History of UTI Z87.440 ; Hyp okalemia E87.6 ; BMI 45.0-49.9, adult Z68.42 and Hypothyroidism E03.9 [facility] [address] [facility] [id number] [address] [place] [phone] November, Hypothyroidism E03.9 [facility] [address] [facility] [id number] [address] [place] [address] November, Essential hypertension I10 ; Hypothyroidism E03.9 ; History of hypokalemia Z86.39 and BMI 45.0-49.9, adult Z68.42 [facility] [address] [facility] [id number] [address] [place] [id number] November, [facility] [address] [facility] [id number] [address] [place] [phone] Jun, [facility] [address] [facility] [id number] [address] [place] [id number] May, History of hypokalemia Z86.3 9 [facility] [address] [facility] [id number] [address] [place] [phone] Apr, Hypothyroidism E03.9 [place] [address] [facility] [id number] [address] [place] [phone] Apr, Essential hypertension I10 ; Hypothyroidism E03.9 ; Cerebral palsy G80.9 ; History of hypokalemia Z86.39 and History of goiter Z86.39 [facility] [address] [facility] [id number] [address] [place] [id number] Dec, Hypothyroidism E03.9 [facility] [address] [facility] [id number] [address] [place] [id number] Dec, Hypothyroidism, unspecified E03.9 [facility] [address] [id number] [address] [place] [id number] 13 Dec, 2016 Morbid obesity due to excess calories E66.01 ; Essential hypertension I10 ; Cerebral palsy G80.9 and Hyperlipidemia, unspecified hyperlipidemia type E78.5 [facility] [address] [facility] [id number] [address] [place] [id number] Oct, Hyperlipidemia, unspecified hyperlipidemia type E78.5 [facility] [address] [facility] [id number] [address] [place] [phone] May, Essential hypertension I10 ; Hypothyroidism E03.9 and Hyperlipidemia, unspecified hyperlipidemia type E78.5 [facility] [address] [facility] [id number] [address] [place] [id number] 08 May, 2016 [facility] [address] [facility] [id number] [address] [place] [phone] May, [facility] [address] [facility] [id number] [address] [place] [phone] Feb, [facility] [address] [facility] [id number] [address] [place] [phone] Feb, Essential hypertension I10 a nd Hypothyroidism E03.9 [facility] [address] [facility] [id number] [address] [place] [phone] Jan, [facility] [address] [id number] [address] [place] [phone] Jul, [facility] [address] [id number] [address] [place] [id number] Jul, [facility] [address] [id number] [address] [place] [phone] Jul, Essential hypertension I10 a nd Hypothyroidism E03.9 [facility] [address] [facility] [id number] [address] [place] [id number] May, Hypothyroidism, unspecified E03.9 [facility] [address] [id number] [address] [place] [phone] May, Essential hypertension I10 a nd Hypothyroidism E03.9 [facility] [address] [facility] [id number] [address] [place] [id number] Feb, Routine general medical exam ination at [facility] V70.0 ; Essential hypertension, benign 401.1 and Unspecified hypothyroidism 244.9 [facility] [address] [id number] [address] [place] [phone] Jan, [facility] [address] [id number] [address] [place] [phone] November, [facility] [address] [facility] [id number] [address] [place] [id number] November, Hypothyroid 244.9 and Essent ial hypertension, benign 401.1 [facility] [address] [facility] [id number] [address] [place] [phone] Oct, [facility] [address] [id number] [address] [place] [phone] Oct, [facility] [address] [facility] [id number] [address] [place] [phone] Jun, [facility] [address] [facility] [id number] [address] [place] [phone] Jun, [facility] [address] [facility] [id number] [address] [place] [id number] May, [facility] [address] [id number] [address] [place] [address], [place] [address] May, [facility] [address] [id number] [address] [place] [address], [place] [address] May, [facility] [address] [id number] [address] [place] [address], [place] [address] May, [facility] [address] [id number] [address] [place] [address], [place] [address] May, [facility] [address] [id number] [address] [place] [address], [place] [address] May, [facility] [address] [id number] [address] [place] [address], [place] [address] Apr, [facility] [address] [id number] [address] [place] [address], [place] [address] Apr, [facility] [address] [id number] [address] [place] [address], [place] [address] Oct, [facility] [address] [id number] [address] [place] [address], [place] [address] Oct, [facility] [address] [id number] [address] [place] [address], [place] [address] Sep, [facility] [address] [id number] [address] [place] [address], [place] [address] Sep, [facility] [address] [id number] [address] [place] [address], [place] [address] Aug, [facility] [address] [id number] [address] [place] [address], [place] [address] Aug, [facility] [address] [id number] [address] [place] [address], [place] [address] Jun, [facility] [address] [id number] [address] [place] [address], [place] [address] Jun, [facility] [address] [id number] [address] [place] [address], [place] [address] May, [facility] [address] [id number] [address] [place] [address], [place] [address] May, [facility] [address] [id number] [address] [place] [address], [place] [address] Mar, [facility] [address] [id number] [address] [place] [address], [place] [address] Jan, [facility] [address] [id number] [address] [place] [address], [place] [address] Dec, [facility] [address] [id number] [address] [place] [address], [place] [address] Oct, [facility] [address] [id number] [address] [place] [address], [place] [address] 29 Sep, 2012 [facility] [address] [id number] [address] [place] [address], [place] [address] Sep, [facility] [address] [id number] [address] [place] [address], [place] [address] Sep, [facility] [address] [id number] [address] [place] [address], [place] [address] Sep, [facility] [address] [id number] [address] [place] [address], [place] [address] Sep, [facility] [address] [id number] [address] [place] [address], [place] [address] Jun, [facility] [address] [id number] [address] [place] [address], [place] [address] Jun, [facility] [address] [id number] [address] [place] [address], [place] [address] 18 Jun, 2012 [facility] [address] [id number] [address] [place] [address], [place] [address] Jun, [facility] [address] [id number] [address] [place] [address], [place] [address] 10 Jun, 2012 [facility] [address] [id number] [address] [place] [phone] Jun, [facility] [address] [facility] [id number] [address] [place] [phone] Jun, [facility] [address] [facility] [id number] [address] [place] [phone] Jun, [facility] [address] [facility] [id number] [address] [place] [id number] Jun, [facility] [address] [facility] [id number] [address] [place] [id number] Jun, IMMUNIZATIONS No Known Immunizations SOCIAL HISTORY [...]
--- OUTSIDE RECORDS SUMMARY | 2019-09-17 05:09 | XMS REPORT ---
Author Author Gisel Khan Doctor Organization [facility] Address Unknown Phone Unavailable Care Team Providers Care Molecular Pathologist Name Role Phone Migration, Doctor Unavailable Unavailable PROBLEMS Type Condition ICD9-CM Code GBR56-SN Code Onset Dates Condition S tatus SNOMED Code Problem History of hypokalemia Z86.39 Active 73370309 Problem History of goiter Z86.39 Active 37 61730 Problem Elevated TSH R94.6 Active 7282714 05 Problem Cerebral palsy G80.9 Active 50834 8000 Problem Essential hypertension I10 Active 38425943 Problem Hypothyroidism E03.9 Active 22573 008 ALLERGIES No Information ENCOUNTERS Encounter Location Date Diagnosis [facility] [address] [id number] [address] [place] [phone] Jan, Essential hypertension I10 a nd Hypothyroidism E03.9 [facility] [address] [facility] [id number] [address] [place] [address] Dec, [facility] [address] [id number] [address] [place] [address] November, Hypothyroidism E03.9 [facility] [address] [facility] [id number] [address] [place] [address] Aug, Essential hypertension I10 [facility] [address] [facility] [id number] [address] [place] [address] Aug, Hypothyroidism E03.9 [facility] [address] [facility] [id number] [address] [place] [address] Aug, BMI 45.0-49.9, adult Z68.42 ; Essential hypertension I10 ; Cerebral palsy G80.9 and Hypothyroidism E03.9 [facility] [address] [facility] [id number] [place] [address] [id number] Jun, [facility] [address] [facility] [id number] [address] [place] [address] Feb, [facility] [address] [address] Dec, History of UTI Z87.440 ; Hyp okalemia E87.6 ; BMI 45.0-49.9, adult Z68.42 and Hypothyroidism E03.9 [place] [address] [address] November, Hypothyroidism E03.9 [place] [address] [address] November, Essential hypertension I10 ; Hypothyroidism E03.9 ; History of hypokalemia Z86.39 and BMI 45.0-49.9, adult Z68.42 [place] [address] [address] November, [place] [address] [address] Jun, [place] [address] [address] May, History of hypokalemia Z86.3 [address] [place] [address] [address] Apr, Hypothyroidism E03.9 [place] [address] [address] Apr, Essential hypertension I10 ; Hypothyroidism E03.9 ; Cerebral palsy G80.9 ; History of hypokalemia Z86.39 and History of goiter Z86.39 [place] [address] [address] Dec, Hypothyroidism E03.9 [place] [address] [address] Dec, Hypothyroidism, unspecified E03.9 [place] [address] [address] Dec, Morbid obesity due to excess calories E66.01 ; Essential hypertension I10 ; Cerebral palsy G80.9 and Hyperlipidemia, unspecified hyperlipidemia type E78.5 [facility] [address] [id number] [address] [place] [address] Oct, Hyperlipidemia, unspecified hyperlipidemia type E78.5 [facility] [address] [facility] [id number] [address] [place] [address] May, Essential hypertension I10 ; Hypothyroidism E03.9 and Hyperlipidemia, unspecified hyperlipidemia type E78.5 [facility] [address] [id number] [address] [place] [address] May, [facility] [address] [id number] [address] [place] [address] May, [facility] [address] [facility] [id number] [address] [place] [phone] Feb, [facility] [address] [facility] [id number] [address] [place] [address] Feb, Essential hypertension I10 a nd Hypothyroidism E03.9 [facility] [address] [id number] [address] [place] [address] Jan, [facility] [address] [facility] [id number] [address] [place] [phone] Jul, [facility] [address] [facility] [id number] [address] [place] [address] Jul, [facility] [address] [facility] [id number] [address] [place] [address] Jul, Essential hypertension I10 a nd Hypothyroidism E03.9 [facility] [address] [facility] [id number] [address] [place] [address] May, Hypothyroidism, unspecified E03.9 [facility] [address] [facility] [id number] [address] [place] [address] May, Essential hypertension I10 a nd Hypothyroidism E03.9 [facility] [address] [id number] [address] [place] [phone] Feb, Routine general medical exam ination at [facility] care facility V70.0 ; Essential hypertension, benign 401.1 and Unspecified hypothyroidism 244.9 [facility] [address] [id number] [address] [place] [address] Jan, [facility] [address] [id number] [address] [place] [address] November, [facility] [address] [id number] [address] [place] [address] November, Hypothyroid 244.9 and Essent ial hypertension, benign 401.1 [facility] [address] [id number] [address] [place] [phone] Oct, [facility] [address] [id number] [address] [place] [address] Oct, [facility] [address] [id number] [address] [place] [address] Jun, [facility] [address] [id number] [address] [place] [address] Jun, [facility] [address] [id number] [address] [place] [address] May, [facility] [address] [id number] [address] [place] [address] May, [facility] [address] [id number] [address] [place] [address] May, [facility] [address] [id number] [address] [place] [address] May, [facility] [address] [id number] [address] [place] [address] May, [facility] [address] [id number] [address] [place] [phone] May, [facility] [address] [id number] [address] [place] [address], [place] [address] Apr, [facility] [address] [id number] [address] [place] [address], [place] [address] Apr, [facility] [address] [id number] [address] [place] [address], [place] [address] Oct, [facility] [address] [id number] [address] [place] [address], [place] [address] Oct, [facility] [address] [id number] [address] [place] [address], [place] [address] Sep, [facility] [address] [id number] [address] [place] [address], [place] [address] Sep, [facility] [address] [id number] [address] [place] [address], [place] [address] 14 Aug, 2013 [facility] [address] [id number] [address] [place] [address], [place] [address] Aug, [facility] [address] [id number] [address] [place] [address], [place] [address] Jun, [facility] [address] [id number] [address] [place] [address], [place] [address] Jun, [facility] [address] [id number] [address] [place] [address], [place] [address] May, [facility] [address] [id number] [address] [place] [address], [place] [address] May, [facility] [address] [id number] [address] [place] [address], [place] [address] 18 Mar, 2013 [facility] [address] [id number] [address] [place] [address], [place] [address] Jan, [facility] [address] [id number] [address] [place] [address], [place] [address] Dec, [facility] [address] [id number] [address] [place] [address], [place] [address] Oct, [facility] [address] [id number] [address] [place] [id number] 29 Sep, 2012 [facility] [address] [id number] [address] [place] [id number] 25 Sep, [address] [facility] [address] [id number] [address] [place] [phone] 22 Sep, [address] [facility] [address] [id number] [address] [place] [phone] 21 Sep, 2012 [facility] [address] [id number] [address] [place] [phone] 13 Sep, [address] [facility] [address] [id number] [address] [place] [phone] Jun, [facility] [address] [id number] [address] [place] [phone] Jun, [facility] [address] [id number] [address] [place] [phone] Jun, [facility] [address] [id number] [address] [place] [phone] Jun, [facility] [address] [id number] [address] [place] [phone] Jun, [facility] [address] [id number] [address] [place] [phone] Jun, [facility] [address] [id number] [address] [place] [phone] Jun, [facility] [address] [id number] [address] [place] [phone] Jun, [facility] [address] [id number] [address] [place] [id number] Jun, [facility] [address] [id number] [address] [place] [phone] Jun, IMMUNIZATIONS No Known Immunizations SOCIAL HISTORY Never Assessed REASON FOR VISIT PLAN OF CARE VITAL SIGNS MEDICATIONS No Known Medications RESULTS No Results PROCEDURES No Known [...] orthopedic surgery-Rt ankle fracture wit h hardware 2002 Hospitalization History Surgery(s) only Hospitalization History kidney or urinary tract infection 0 12/2017
--- OUTSIDE RECORDS SUMMARY | 2019-09-17 05:09 | XMS REPORT ---
Author Author Gisel Khan Doctor Organization [facility] Address Unknown Phone Unavailable Care Team Providers Care Production Expert Name Role Phone Migration, Doctor Unavailable Unavailable PROBLEMS Type Condition ICD9-CM Code CEY45-BB Code Onset Dates Condition S tatus SNOMED Code Problem History of hypokalemia Z86.39 Active 10357539 Problem History of goiter Z86.39 Active 37 97192 Problem Elevated TSH R94.6 Active 2135510 05 Problem Cerebral palsy G80.9 Active 21424 8000 Problem Essential hypertension I10 Active 23568295 Problem Hypothyroidism E03.9 Active 15800 008 ALLERGIES No Information ENCOUNTERS Encounter Location Date Diagnosis [facility] [address] [id number] [address] [place] [address] Jan, Essential hypertension I10 a nd Hypothyroidism E03.9 [facility] [address] [facility] [id number] [address] [place] [address] Dec, [facility] [address] [id number] [address] [place] [address] November, Hypothyroidism E03.9 [facility] [address] [facility] [id number] [address] [place] [address] Aug, Essential hypertension I10 [facility] [address] [id number] [address] [place] [address] Aug, Hypothyroidism E03.9 [facility] [address] [facility] [id number] [address] [place] [address] Aug, BMI 45.0-49.9, adult Z68.42 ; Essential hypertension I10 ; Cerebral palsy G80.9 and Hypothyroidism E03.9 [facility] [id number] [place] [id number] Jun, [facility] [address] [facility] [id number] [address] [place] [phone] Feb, [facility] [address] [address] Dec, History of UTI Z87.440 ; Hyp okalemia E87.6 ; BMI 45.0-49.9, adult Z68.42 and Hypothyroidism E03.9 [place] [address] [address] November, Hypothyroidism E03.9 [place] [address] [address] November, Essential hypertension I10 ; Hypothyroidism E03.9 ; History of hypokalemia Z86.39 and BMI 45.0-49.9, adult Z68.42 [place] [address] [address] November, [place] [address] [address] Jun, [place] [address] [address] May, History of hypokalemia Z86.3 9 [place] [address] [address] Apr, Hypothyroidism E03.9 [place] [address] [address] Apr, Essential hypertension I10 ; Hypothyroidism E03.9 ; Cerebral palsy G80.9 ; History of hypokalemia Z86.39 and History of goiter Z86.39 [place] [address] [address] Dec, Hypothyroidism E03.9 [place] [address] [address] Dec, Hypothyroidism, unspecified E03.9 [place] [address] [address] Dec, Morbid obesity due to excess calories E66.01 ; Essential hypertension I10 ; Cerebral palsy G80.9 and Hyperlipidemia, unspecified hyperlipidemia type E78.5 [facility] [address] [id number] [address] [place] [address] Oct, Hyperlipidemia, unspecified hyperlipidemia type E78.5 [facility] [address] [facility] [id number] [address] [place] [address] May, Essential hypertension I10 ; Hypothyroidism E03.9 and Hyperlipidemia, unspecified hyperlipidemia type E78.5 [facility] [address] [id number] [address] [place] [address] May, [facility] [address] [id number] [address] [place] [address] May, [facility] [address] [facility] [id number] [address] [place] [address] Feb, [facility] [address] [facility] [id number] [address] [place] [address] Feb, Essential hypertension I10 a nd Hypothyroidism E03.9 [facility] [address] [id number] [address] [place] [address] Jan, [facility] [address] [facility] [id number] [address] [place] [address] Jul, [facility] [address] [facility] [id number] [address] [place] [address] Jul, [facility] [address] [facility] [id number] [address] [place] [address] Jul, Essential hypertension I10 a nd Hypothyroidism E03.9 [facility] [address] [facility] [id number] [address] [place] [address] May, Hypothyroidism, unspecified E03.9 [facility] [address] [facility] [id number] [address] [place] [address] May, Essential hypertension I10 a nd Hypothyroidism E03.9 [facility] [address] [id number] [address] [place] [address] Feb, Routine general medical exam ination at [facility] V70.0 ; Essential hypertension, benign 401.1 and Unspecified hypothyroidism 244.9 [facility] [address] [id number] [address] [place] [address] Jan, [facility] [address] [id number] [address] [place] [address] November, [facility] [address] [id number] [address] [place] [address] November, Hypothyroid 244.9 and Essent ial hypertension, benign 401.1 [facility] [address] [id number] [address] [place] [address] Oct, [facility] [address] [id number] [address] [place] [address] Oct, [facility] [address] [id number] [address] [place] [address] Jun, [facility] [address] [id number] [address] [place] [address] Jun, [facility] [address] [id number] [address] [place] [address] May, [facility] [address] [id number] [address] [place] [address] May, [facility] [address] [id number] [address] [place] [address] May, [facility] [address] [id number] [address] [place] [address] May, [facility] [address] [id number] [address] [place] [address] May, [facility] [address] [id number] [address] [place] [address] May, [facility] [address] [id number] [address] [place] [address], [place] [address] Apr, [facility] [address] [id number] [address] [place] [address], [place] [address] Apr, [facility] [address] [id number] [address] [place] [address], [place] [address] Oct, [facility] [address] [id number] [address] [place] [address], [place] [address] Oct, [facility] [address] [id number] [address] [place] [address], [place] [address] Sep, [facility] [address] [id number] [address] [place] [address], [place] [address] Sep, [facility] [address] [id number] [address] [place] [address], [place] [address] 14 Aug, 2013 [facility] [address] [id number] [address] [place] [address], [place] [address] Aug, [facility] [address] [id number] [address] [place] [address], [place] [address] Jun, [facility] [address] [id number] [address] [place] [address], [place] [address] Jun, [facility] [address] [id number] [address] [place] [address], [place] [address] May, [facility] [address] [id number] [address] [place] [address], [place] [address] May, [facility] [address] [id number] [address] [place] [address], [place] [address] 18 Mar, 2013 [facility] [address] [id number] [address] [place] [address], [place] [address] Jan, [facility] [address] [id number] [address] [place] [address], [place] [address] Dec, [facility] [address] [id number] [address] [place] [address], [place] [address] Oct, [facility] [address] [id number] [address] [place] [address] 29 Sep, 2012 [facility] [address] [id number] [address] [place] [address] 25 Sep, 2012 [facility] [address] [id number] [address] [place] [address] 22 Sep, 2012 [facility] [address] [id number] [address] [place] [address] 21 Sep, 2012 [facility] [address] [id number] [address] [place] [phone] 13 Sep, 2012 [facility] [address] [id number] [address] [place] [address] Jun, [facility] [address] [id number] [address] [place] [address] Jun, [facility] [address] [id number] [address] [place] [address] Jun, [facility] [address] [id number] [address] [place] [address] Jun, [facility] [address] [id number] [address] [place] [address] Jun, [facility] [address] [id number] [address] [place] [address] Jun, [facility] [address] [id number] [address] [place] [address] Jun, [facility] [address] [id number] [address] [place] [address] Jun, [facility] [address] [id number] [address] [place] [address] Jun, [facility] [address] [id number] [address] [place] [address] Jun, IMMUNIZATIONS No Known Immunizations SOCIAL HISTORY [...]
--- OUTSIDE RECORDS SUMMARY | 2019-09-17 05:09 | XMS REPORT ---
Author Author Gisel EDMOND [facility] [place] Address [address] [place] [address] Care Team Providers Care Reproduction Order Processor Name Role Phone KANNAN EDMOND Unavailable PROBLEMS Type Condition ICD9-CM Code ZIY16-QI Code Onset Dates Condition S tatus SNOMED Code Problem History of goiter Z86.39 Active 37 72484 Problem History of hypokalemia Z86.39 Active 09462379 Problem Cerebral palsy G80.9 Active 64459 8000 Problem Elevated TSH R94.6 Active 0256575 05 Problem Hypothyroidism E03.9 Active 91808 008 Problem Essential hypertension I10 Active 84958621 ALLERGIES No Information ENCOUNTERS Encounter Location Date Diagnosis [place] [address] [id number] [address] [place] [address] Jun, [facility] [address] [facility] [id number] [place] [address] [id number] Jun, [place] [address] [id number] [address] [place] [address] Feb, [place] [address] [id number] [address] [place] [address] Dec, History of UTI Z87.440 ; Hyp okalemia E87.6 ; BMI 45.0-49.9, adult Z68.42 and Hypothyroidism E03.9 [place] [address] [facility] [id number] [address] [place] [id number] November, Hypothyroidism E03.9 [place] [address] [id number] [address] [place] [address] November, Essential hypertension I10 ; Hypothyroidism E03.9 ; History of hypokalemia Z86.39 and BMI 45.0-49.9, adult Z68.42 [place] [address] [place] [id number] [address] [place] [address] November, [facility] [address] [facility] [id number] [address] [place] [address] Jun, [facility] [address] [facility] [id number] [address] [place] [address] May, History of hypokalemia Z86.3 9 [facility] [address] [facility] [id number] [address] [place] [address] 13 Apr, 2017 Hypothyroidism E03.9 [facility] [address] [facility] [id number] [address] [place] [address] 11 Apr, 2017 Essential hypertension I10 ; Hypothyroidism E03.9 ; Cerebral palsy G80.9 ; History of hypokalemia Z86.39 and History of goiter Z86.39 [place] [address] [facility] [id number] [address] [place] [address] Dec, Hypothyroidism E03.9 [facility] [address] [facility] [id number] [address] [place] [phone] 19 Dec, 2016 Hypothyroidism, unspecified E03.9 [facility] [address] [facility] [id number] [address] [place] [phone] 13 Dec, 2016 Morbid obesity due to excess calories E66.01 ; Essential hypertension I10 ; Cerebral palsy G80.9 and Hyperlipidemia, unspecified hyperlipidemia type E78.5 [facility] [address] [facility] [id number] [address] [place] [address] Oct, Hyperlipidemia, unspecified hyperlipidemia type E78.5 [facility] [address] [facility] [id number] [address] [place] [phone] May, Essential hypertension I10 ; Hypothyroidism E03.9 and Hyperlipidemia, unspecified hyperlipidemia type E78.5 [facility] [address] [facility] [id number] [address] [place] [phone] 08 May, 2016 [facility] [address] [facility] [id number] [address] [place] [phone] 08 May, 2016 [facility] [address] [id number] [address] [place] [address] Feb, [facility] [address] [id number] [address] [place] [phone] Feb, Essential hypertension I10 a nd Hypothyroidism E03.9 [facility] [address] [id number] [address] [place] [id number] 14 Jan, 2016 [facility] [address] [id number] [address] [place] [phone] Jul, [facility] [address] [id number] [address] [place] [phone] Jul, [facility] [address] [facility] [id number] [address] [place] [id number] Jul, Essential hypertension I10 a nd Hypothyroidism E03.9 [facility] [address] [id number] [address] [place] [phone] May, Hypothyroidism, unspecified E03.9 [facility] [address] [facility] [id number] [address] [place] [phone] May, Essential hypertension I10 a nd Hypothyroidism E03.9 [facility] [address] [facility] [id number] [address] [place] [phone] Feb, Routine general medical exam ination at health care facility V70.0 ; Essential hypertension, benign 401.1 and Unspecified hypothyroidism 244.9 [facility] [address] [id number] [address] [place] [phone] Jan, [facility] [address] [id number] [address] [place] [phone] November, [facility] [address] [facility] [id number] [address] [place] [phone] 14 Nov, 2014 Hypothyroid 244.9 and Essent ial hypertension, benign 401.1 [facility] [address] [facility] [id number] [address] [place] [phone] Oct, [facility] [address] [id number] [address] [place] [address], [place] [address] Oct, [facility] [address] [id number] [address] [place] [address], [place] [address] Jun, [facility] [address] [id number] [address] [place] [address], [place] [address] Jun, [facility] [address] [id number] [address] [place] [address], [place] [address] May, [facility] [address] [id number] [address] [place] [address], [place] [address] May, [facility] [address] [id number] [address] [place] [address], [place] [address] May, [facility] [address] [id number] [address] [place] [address], [place] [phone] May, [facility] [address] [id number] [address] [place] [address], [place] [address] May, [facility] [address] [id number] [address] [place] [address], [place] [address] May, [facility] [address] [id number] [address] [place] [address], [place] [address] Apr, [facility] [address] [id number] [address] [place] [address], [place] [address] Apr, [facility] [address] [id number] [address] [place] [address], [place] [address] Oct, [facility] [address] [id number] [address] [place] [address], [place] [address] Oct, [facility] [address] [id number] [address] [place] [address], [place] [address] Sep, [facility] [address] [id number] [address] [place] [address], [place] [address] Sep, [facility] [address] [id number] [address] [place] [address], [place] [address] 14 Aug, 2013 [facility] [address] [id number] [address] [place] [address], [place] [address] 14 Aug, 2013 [facility] [address] [id number] [address] [place] [address], [place] [address] Jun, [facility] [address] [id number] [address] [place] [address], [place] [address] Jun, [facility] [address] [id number] [address] [place] [address], [place] [address] May, [facility] [address] [id number] [address] [place] [address], [place] [address] May, [facility] [address] [id number] [address] [place] [address], [place] [address] Mar, [facility] [address] [id number] [address] [place] [address], [place] [address] Jan, [facility] [address] [id number] [address] [place] [address], [place] [address] Dec, [facility] [address] [id number] [address] [place] [address], [place] [address] Oct, [facility] [address] [id number] [address] [place] [address], [place] [address] 29 Sep, 2012 [facility] [address] [id number] [address] [place] [address], [place] [address] 25 Sep, 2012 [facility] [address] [id number] [address] [place] [address], [place] [address] 22 Sep, 2012 [facility] [address] [id number] [address] [place] [address], [place] [address] 21 Sep, 2012 [facility] [address] [id number] [address] [place] [address], [place] [id number] 13 Sep, 2012 [facility] [address] [id number] [address] [place] [address], [place] [phone] Jun, [facility] [address] [id number] [address] [place] [phone] Jun, [facility] [address] [id number] [address] [place] [phone] Jun, [facility] [address] [id number] [address] [place] [phone] Jun, [facility] [address] [id number] [address] [place] [phone] Jun, [facility] [address] [id number] [address] [place] [phone] Jun, [facility] [address] [id number] [address] [place] [phone] Jun, [facility] [address] [id number] [address] [place] [phone] Jun, [facility] [address] [id number] [address] [place] [phone] Jun, [facility] [address] [id number] [address] [place] [phone] Jun, IMMUNIZATIONS No Known Immunizations SOCIAL HISTORY Never Assessed REASON FOR VISIT Refill Potassium ER PLAN OF CARE VITAL SIGNS MEDICATIONS Medication Instructions Dosage Frequency Start Date End Date Duration S tatus Potassium Chloride ER 10MEQ ER Orally Once a day 2 tablets with food 2 4h 30 days Active RESULTS No Results PROCEDURES No Known [...]
--- OUTSIDE RECORDS SUMMARY | 2019-09-17 05:09 | XMS REPORT ---
Author Author Gisel Khan Doctor Organization [facility] Address Unknown Phone Unavailable Care Team Providers Care Chip Frier Name Role Phone Migration, Doctor Unavailable Unavailable PROBLEMS Type Condition ICD9-CM Code [id number] Code Onset Dates Condition S tatus SNOMED Code Problem History of hypokalemia Z86.39 Active 63735681 Problem History of goiter Z86.39 Active 37 72463 Problem Elevated TSH R94.6 Active 9558598 05 Problem Cerebral palsy G80.9 Active 89240 8000 Problem Essential hypertension I10 Active 78817904 Problem Hypothyroidism E03.9 Active 94966 008 ALLERGIES No Information ENCOUNTERS Encounter Location Date Diagnosis [facility] [address] [id number] [address] [place] [address] Feb, [facility] [address] [id number] [address] [place] [address] Feb, Essential hypertension I10 [facility] [address] [id number] [address] [place] [address] Feb, Essential hypertension I10 [facility] [address] [id number] [address] [place] [address] Feb, Essential hypertension I10 [facility] [address] [id number] [address] [place] [address] Feb, [facility] [address] [id number] [address] [place] [address] Jan, Essential hypertension I10 a nd Hypothyroidism E03.9 [facility] [address] [id number] [address] [place] [address] Dec, [facility] [address] [id number] [address] [place] [address] November, Hypothyroidism E03.9 [facility] [address] [id number] [address] [place] [address] Aug, Essential hypertension I10 [facility] [address] [id number] [address] [place] [address] Aug, Hypothyroidism E03.9 [facility] [address] [id number] [address] [place] [address] Aug, BMI 45.0-49.9, adult Z68.42 ; Essential hypertension I10 ; Cerebral palsy G80.9 and Hypothyroidism E03.9 [facility] [address] [id number] [id number] Jun, [facility] [address] [id number] [address] [place] [address] Feb, [facility] [address] [id number] [address] [place] [address] Dec, History of UTI Z87.440 ; Hyp okalemia E87.6 ; BMI 45.0-49.9, adult Z68.42 and Hypothyroidism E03.9 [facility] [address] [id number] [address] [place] [address] November, Hypothyroidism E03.9 [facility] [address] [id number] [address] [place] [address] November, Essential hypertension I10 ; Hypothyroidism E03.9 ; History of hypokalemia Z86.39 and BMI 45.0-49.9, adult Z68.42 [facility] [address] [id number] [address] [place] [address] November, [facility] [address] [id number] [address] [place] [address] Jun, [facility] [address] [id number] [address] [place] [address] May, History of hypokalemia Z86.3 9 [facility] [address] [id number] [address] [place] [address] Apr, Hypothyroidism E03.9 [place] [address] [facility] [id number] [address] [place] [address] Apr, Essential hypertension I10 ; Hypothyroidism E03.9 ; Cerebral palsy G80.9 ; History of hypokalemia Z86.39 and History of goiter Z86.39 [facility] [address] [id number] [address] [place] [address] Dec, Hypothyroidism E03.9 [facility] [address] [id number] [address] [place] [address] Dec, Hypothyroidism, unspecified E03.9 [facility] [address] [id number] [address] [place] [address] 13 Dec, 2016 Morbid obesity due to excess calories E66.01 ; Essential hypertension I10 ; Cerebral palsy G80.9 and Hyperlipidemia, unspecified hyperlipidemia type E78.5 [facility] [address] [id number] [address] [place] [address] Oct, Hyperlipidemia, unspecified hyperlipidemia type E78.5 [facility] [address] [id number] [address] [place] [address] May, Essential hypertension I10 ; Hypothyroidism E03.9 and Hyperlipidemia, unspecified hyperlipidemia type E78.5 [facility] [address] [id number] [address] [place] [address] 08 May, 2016 [facility] [address] [id number] [address] [place] [address] May, [facility] [address] [id number] [address] [place] [address] Feb, [facility] [address] [id number] [address] [place] [address] Feb, Essential hypertension I10 a nd Hypothyroidism E03.9 [facility] [address] [id number] [address] [place] [address] Jan, [facility] [address] [id number] [address] [place] [address] Jul, [facility] [address] [id number] [address] [place] [address] Jul, [facility] [address] [id number] [address] [place] [address] Jul, Essential hypertension I10 a nd Hypothyroidism E03.9 [facility] [address] [id number] [address] [place] [address] May, Hypothyroidism, unspecified E03.9 [facility] [address] [id number] [address] [place] [address] May, Essential hypertension I10 a nd Hypothyroidism E03.9 [facility] [address] [id number] [address] [place] [address] Feb, Routine general medical exam ination at [facility] V70.0 ; Essential hypertension, benign 401.1 and Unspecified hypothyroidism 244.9 [facility] [address] [id number] [address] [place] [address] Jan, [facility] [address] [id number] [address] [place] [address] November, [facility] [address] [id number] [address] [place] [address] November, Hypothyroid 244.9 and Essent ial hypertension, benign 401.1 [facility] [address] [id number] [address] [place] [address] Oct, [facility] [address] [id number] [address] [place] [address] Oct, [facility] [address] [id number] [address] [place] [address] Jun, [facility] [address] [id number] [address] [place] [address] Jun, [facility] [address] [id number] [address] [place] [address] May, [facility] [address] [id number] [address] [place] [address], [place] [address] May, [facility] [address] [id number] [address] [place] [address], [place] [address] May, [facility] [address] [id number] [address] [place] [address], [place] [address] May, [facility] [address] [id number] [address] [place] [address], [place] [address] May, [facility] [address] [id number] [address] [place] [address], [place] [address] May, [facility] [address] [id number] [address] [place] [address], [place] [address] Apr, [facility] [address] [id number] [address] [place] [address], [place] [address] Apr, [facility] [address] [id number] [address] [place] [address], [place] [address] Oct, [facility] [address] [id number] [address] [place] [address], [place] [address] Oct, [facility] [address] [id number] [address] [place] [address], [place] [address] Sep, [facility] [address] [id number] [address] [place] [address], [place] [address] Sep, [facility] [address] [id number] [address] [place] [address], [place] [address] Aug, [facility] [address] [id number] [address] [place] [address], [place] [address] Aug, [facility] [address] [id number] [address] [place] [address], [place] [address] Jun, [facility] [address] [id number] [address] [place] [address], [place] [address] Jun, [facility] [address] [id number] [address] [place] [address], [place] [address] May, [facility] [address] [id number] [address] [place] [address], [place] [address] May, [facility] [address] [id number] [address] [place] [address], [place] [address] Mar, [facility] [address] [id number] [address] [place] [address], [place] [address] Jan, [facility] [address] [id number] [address] [place] [address], [place] [address] Dec, [facility] [address] [id number] [address] [place] [address], [place] [address] Oct, [facility] [address] [id number] [address] [place] [address], [place] [address] 29 Sep, 2012 [facility] [address] [id number] [address] [place] [address], [place] [address] Sep, [facility] [address] [id number] [address] [place] [address], [place] [address] Sep, [facility] [address] [id number] [address] [place] [address], [place] [address] Sep, [facility] [address] [id number] [address] [place] [address], [place] [address] Sep, [facility] [address] [id number] [address] [place] [address], [place] [address] Jun, [facility] [address] [id number] [address] [place] [address], [place] [address] Jun, [facility] [address] [id number] [address] [place] [address], [place] [address] 18 Jun, 2012 [facility] [address] [id number] [address] [place] [address], [place] [address] Jun, [facility] [address] [id number] [address] [place] [address], [place] [address] 10 Jun, 2012 [facility] [address] [id number] [address] [place] [address] Jun, [facility] [address] [id number] [address] [place] [address] Jun, [facility] [address] [id number] [address] [place] [address] Jun, [facility] [address] [id number] [address] [place] [address] Jun, [facility] [address] [id number] [address] [place] [address] Jun, IMMUNIZATIONS No Known Immunizations SOCIAL HISTORY [...]
--- OUTSIDE RECORDS SUMMARY | 2019-09-17 05:09 | XMS REPORT ---
Author Author Gisel Khan Doctor Organization [facility] Address Unknown Phone Unavailable Care Team Providers Care Senior Cytogenetic Technologist Name Role Phone Migration, Doctor Unavailable Unavailable PROBLEMS Type Condition ICD9-CM Code [id number] Code Onset Dates Condition S tatus SNOMED Code Problem History of hypokalemia Z86.39 Active 83313077 Problem History of goiter Z86.39 Active 37 16044 Problem Elevated TSH R94.6 Active 0988697 05 Problem Cerebral palsy G80.9 Active 86450 8000 Problem Essential hypertension I10 Active 90681917 Problem Hypothyroidism E03.9 Active 12891 008 ALLERGIES No Information ENCOUNTERS Encounter Location Date Diagnosis [place] [address] [id number] [address] [place] [address] Aug, Essential hypertension I10 [place] [address] [id number] [address] [place] [address] 12 Aug, 2018 Hypothyroidism E03.9 [place] [address] [address] 11 Aug, 2018 BMI 45.0-49.9, adult Z68.42 ; Essential hypertension I10 ; Cerebral palsy G80.9 and Hypothyroidism E03.9 [facility] [address] [facility] [id number] [id number] Jun, [place] [address] [id number] [address] [place] [address] Feb, [place] [address] [id number] [address] [place] [address] Dec, History of UTI Z87.440 ; Hyp okalemia E87.6 ; BMI 45.0-49.9, adult Z68.42 and Hypothyroidism E03.9 [place] [address] [id number] [address] [place] [address] November, Hypothyroidism E03.9 [facility] [address] [address] November, Essential hypertension I10 ; Hypothyroidism E03.9 ; History of hypokalemia Z86.39 and BMI 45.0-49.9, adult Z68.42 [place] [address] [address] November, [place] [address] [address] Jun, [place] [address] [address] May, History of hypokalemia Z86.3 9 [place] [address] [id number] 13 Apr, 2017 Hypothyroidism E03.9 [place] [address] [address] Apr, Essential hypertension I10 ; Hypothyroidism E03.9 ; Cerebral palsy G80.9 ; History of hypokalemia Z86.39 and History of goiter Z86.39 [place] [address] [address] 19 Dec, 2016 Hypothyroidism E03.9 [place] [address] [address] 19 Dec, 2016 Hypothyroidism, unspecified E03.9 [place] [address] [address] 13 Dec, 2016 Morbid obesity due to excess calories E66.01 ; Essential hypertension I10 ; Cerebral palsy G80.9 and Hyperlipidemia, unspecified hyperlipidemia type E78.5 [place] [address] [address] 06 Oct, 2016 Hyperlipidemia, unspecified hyperlipidemia type E78.5 [place] [address] [address] 11 May, 2016 Essential hypertension I10 ; Hypothyroidism E03.9 and Hyperlipidemia, unspecified hyperlipidemia type E78.5 [facility] [address] [id number] [address] [place] [address] 08 May, 2016 [facility] [address] [id number] [address] [place] [address] May, [facility] [address] [id number] [address] [place] [address] Feb, [facility] [address] [id number] [address] [place] [address] Feb, Essential hypertension I10 a nd Hypothyroidism E03.9 [facility] [address] [id number] [address] [place] [address] Jan, [facility] [address] [facility] [id number] [place] [address] Jul, [facility] [address] [id number] [address] [place] [address] Jul, [facility] [address] [id number] [address] [place] [address] Jul, Essential hypertension I10 a nd Hypothyroidism E03.9 [facility] [address] [id number] [address] [place] [address] May, Hypothyroidism, unspecified E03.9 [facility] [address] [id number] [address] [place] [address] May, Essential hypertension I10 a nd Hypothyroidism E03.9 [facility] [address] [id number] [address] [place] [address] Feb, Routine general medical exam ination at [facility] V70.0 ; Essential hypertension, benign 401.1 and Unspecified hypothyroidism 244.9 [facility] [address] [id number] [address] [place] [address] Jan, [facility] [address] [facility] [id number] [place] [address] November, [facility] [address] [id number] [address] [place] [address], [place] [address] November, Hypothyroid 244.9 and Essent ial hypertension, benign 401.1 [facility] [address] [id number] [address] [place] [address], [place] [address] Oct, [facility] [address] [id number] [address] [place] [address], [place] [address] Oct, [facility] [address] [id number] [address] [place] [address], [place] [address] Jun, [facility] [address] [id number] [address] [place] [address], [place] [address] Jun, [facility] [address] [id number] [address] [place] [address], [place] [address] May, [facility] [address] [id number] [address] [place] [address], [place] [address] May, [facility] [address] [id number] [address] [place] [address], [place] [address] May, [facility] [address] [id number] [address] [place] [address], [place] [address] May, [facility] [address] [id number] [address] [place] [address], [place] [address] May, [facility] [address] [id number] [address] [place] [address], [place] [address] May, [facility] [address] [id number] [address] [place] [address], [place] [address] Apr, [facility] [address] [id number] [address] [place] [address], [place] [address] Apr, [facility] [address] [id number] [address] [place] [address], [place] [address] Oct, [facility] [address] [id number] [address] [place] [address], [place] [address] Oct, [facility] [address] [id number] [address] [place] [address], [place] [address] 14 Sep, 2013 [facility] [address] [id number] [address] [place] [address], [place] [address] 14 Sep, 2013 [facility] [address] [id number] [address] [place] [address], [place] [address] 14 Aug, 2013 [facility] [address] [id number] [address] [place] [address], [place] [address] Aug, [facility] [address] [id number] [address] [place] [address], [place] [address] Jun, [facility] [address] [id number] [address] [place] [address], [place] [address] Jun, [facility] [address] [id number] [address] [place] [address], [place] [address] May, [facility] [address] [id number] [address] [place] [address], [place] [address] May, [facility] [address] [id number] [address] [place] [address], [place] [address] Mar, [facility] [address] [id number] [address] [place] [address] Jan, [facility] [address] [id number] [address] [place] [address], [place] [address] Dec, [facility] [address] [id number] [address] [place] [address] Oct, [facility] [address] [id number] [address] [place] [address], [place] [address] 29 Sep, 2012 [facility] [address] [id number] [address] [place] [address], [place] [address] Sep, [facility] [address] [id number] [address] [place] [address], [place] [address] Sep, [facility] [address] [id number] [address] [place] [address] Sep, [facility] [address] [id number] [address] [place] [address] Sep, [facility] [address] [id number] [address] [place] [address] Jun, [facility] [address] [id number] [address] [place] [address] Jun, [facility] [address] [id number] [address] [place] [address] Jun, [facility] [address] [id number] [address] [place] [phone] Jun, [facility] [address] [id number] [address] [place] [phone] Jun, [facility] [address] [id number] [address] [place] [phone] Jun, [facility] [address] [id number] [address] [place] [phone] Jun, [facility] [address] [id number] [address] [place] [phone] Jun, [facility] [address] [id number] [address] [place] [phone] Jun, [facility] [address] [id number] [address] [place] [phone] Jun, IMMUNIZATIONS No Known Immunizations SOCIAL HISTORY Never Assessed REASON FOR VISIT EMR-[facility] [place] PLAN OF CARE VITAL SIGNS MEDICATIONS Medication Instructions Dosage Frequency Start Date End Date Duration S tatus Lisinopril 10 mg take 1 tablet by Oral route 1 time pe r day Take in am Jun, Active levothyroxine 75 mcg take 1 tablet (75 mcg) by oral ro karuk once daily Oct, Active RESULTS No Results PROCEDURES No Known [...]
--- OUTSIDE RECORDS SUMMARY | 2019-09-17 05:09 | XMS REPORT ---
Author Author Gisel Khan Doctor Organization [facility] Address Unknown Phone Unavailable Care Team Providers Care Body Service Team Member Name Role Phone Migration, Doctor Unavailable Unavailable PROBLEMS Type Condition ICD9-CM Code [id number] Code Onset Dates Condition S tatus SNOMED Code Problem History of hypokalemia Z86.39 Active 57979263 Problem History of goiter Z86.39 Active 37 47405 Problem Elevated TSH R94.6 Active 0940537 05 Problem Cerebral palsy G80.9 Active 18389 8000 Problem Essential hypertension I10 Active 92176274 Problem Hypothyroidism E03.9 Active 83348 008 ALLERGIES No Information ENCOUNTERS Encounter Location Date Diagnosis [place] [address] [place] [id number] [address] [place] [address] Aug, Essential hypertension I10 [place] [address] [place] [id number] [address] [place] [address] 12 Aug, 2018 Hypothyroidism E03.9 [place] [address] [address] 11 Aug, 2018 BMI 45.0-49.9, adult Z68.42 ; Essential hypertension I10 ; Cerebral palsy G80.[address] [facility] [address] [facility] [id number] [id number] Jun, [place] [address] [place] [id number] [address] [place] [address] Feb, [place] [address] [place] [id number] [address] [place] [address] Dec, History of UTI Z87.440 ; Hyp okalemia E87.6 ; BMI 45.0-49.9, adult Z68.42 and Hypothyroidism E03.9 [place] [address] [place] [id number] [address] [place] [address] November, Hypothyroidism E03.9 [facility] [address] [address] November, Essential hypertension I10 ; Hypothyroidism E03.9 ; History of hypokalemia Z86.39 and BMI 45.0-49.9, adult Z68.42 [place] [address] [address] November, [place] [address] [address] Jun, [place] [address] [address] May, History of hypokalemia Z86.3 9 [place] [address] [address] 13 Apr, 2017 Hypothyroidism E03.9 [place] [address] [address] Apr, Essential hypertension I10 ; Hypothyroidism E03.9 ; Cerebral palsy G80.9 ; History of hypokalemia Z86.39 and History of goiter Z86.39 [place] [address] [address] 19 Dec, 2016 Hypothyroidism E03.9 [place] [address] [address] 19 Dec, 2016 Hypothyroidism, unspecified E03.9 [place] [address] [address] 13 Dec, 2016 Morbid obesity due to excess calories E66.01 ; Essential hypertension I10 ; Cerebral palsy G80.9 and Hyperlipidemia, unspecified hyperlipidemia type E78.5 [place] [address] [address] 06 Oct, 2016 Hyperlipidemia, unspecified hyperlipidemia type E78.5 [place] [address] [address] 11 May, 2016 Essential hypertension I10 ; Hypothyroidism E03.9 and Hyperlipidemia, unspecified hyperlipidemia type E78.5 [facility] [address] [id number] [address] [place] [address] 08 May, 2016 [facility] [address] [id number] [address] [place] [address] May, [facility] [address] [id number] [address] [place] [address] Feb, [facility] [address] [id number] [address] [place] [address] Feb, Essential hypertension I10 a nd Hypothyroidism E03.9 [facility] [address] [id number] [address] [place] [address] Jan, [facility] [address] [facility] [id number] [address] [place] [phone] Jul, [facility] [address] [id number] [address] [place] [address] Jul, [facility] [address] [id number] [address] [place] [address] Jul, Essential hypertension I10 a nd Hypothyroidism E03.9 [facility] [address] [id number] [address] [place] [address] May, Hypothyroidism, unspecified E03.9 [facility] [address] [id number] [address] [place] [address] May, Essential hypertension I10 a nd Hypothyroidism E03.9 [facility] [address] [id number] [address] [place] [address] Feb, Routine general medical exam ination at [facility] care [facility] V70.0 ; Essential hypertension, benign 401.1 and Unspecified hypothyroidism 244.9 [facility] [address] [id number] [address] [place] [address] Jan, [facility] [address] [facility] [id number] [address] [place] [address] November, [facility] [address] [id number] [address] [place] [address], [place] [address] November, Hypothyroid 244.9 and Essent ial hypertension, benign 401.1 [facility] [address] [id number] [address] [place] [address], [place] [address] Oct, [facility] [address] [id number] [address] [place] [address], [place] [address] Oct, [facility] [address] [id number] [address] [place] [address], [place] [address] Jun, [facility] [address] [id number] [address] [place] [address], [place] [address] Jun, [facility] [address] [id number] [address] [place] [address], [place] [address] May, [facility] [address] [id number] [address] [place] [address], [place] [address] May, [facility] [address] [id number] [address] [place] [address], [place] [address] May, [facility] [address] [id number] [address] [place] [address], [place] [address] May, [facility] [address] [id number] [address] [place] [address], [place] [address] May, [facility] [address] [id number] [address] [place] [address], [place] [address] May, [facility] [address] [id number] [address] [place] [address], [place] [address] Apr, [facility] [address] [id number] [address] [place] [address], [place] [address] Apr, [facility] [address] [id number] [address] [place] [address], [place] [address] Oct, [facility] [address] [id number] [address] [place] [address], [place] [address] Oct, [facility] [address] [id number] [address] [place] [address], [place] [address] 14 Sep, 2013 [facility] [address] [id number] [address] [place] [address], [place] [address] 14 Sep, 2013 [facility] [address] [id number] [address] [place] [address], [place] [address] 14 Aug, 2013 [facility] [address] [id number] [address] [place] [address], [place] [address] Aug, [facility] [address] [id number] [address] [place] [address], [place] [address] Jun, [facility] [address] [id number] [address] [place] [address], [place] [address] Jun, [facility] [address] [id number] [address] [place] [address], [place] [address] May, [facility] [address] [id number] [address] [place] [address], [place] [address] May, [facility] [address] [id number] [address] [place] [address], [place] [address] Mar, [facility] [address] [id number] [address] [place] [address] Jan, [facility] [address] [id number] [address] [place] [address], [place] [address] Dec, [facility] [address] [id number] [address] [place] [address] Oct, [facility] [address] [id number] [address] [place] [address], [place] [address] 29 Sep, 2012 [facility] [address] [id number] [address] [place] [address], [place] [address] Sep, [facility] [address] [id number] [address] [place] [address], [place] [address] Sep, [facility] [address] [id number] [address] [place] [address] Sep, [facility] [address] [id number] [address] [place] [address] Sep, [facility] [address] [id number] [address] [place] [address] Jun, [facility] [address] [id number] [address] [place] [address] Jun, [facility] [address] [id number] [address] [place] [address] Jun, [facility] [address] [id number] [address] [place] [address] Jun, [facility] [address] [id number] [address] [place] [address] Jun, [facility] [address] [id number] [address] [place] [address] Jun, [facility] [address] [id number] [address] [place] [address] Jun, [facility] [address] [id number] [address] [place] [address] Jun, [facility] [address] [id number] [address] [place] [address] Jun, [facility] [address] [id number] [address] [place] [address] Jun, IMMUNIZATIONS No Known Immunizations SOCIAL HISTORY Never Assessed REASON FOR VISIT [facility] PLAN OF CARE VITAL SIGNS MEDICATIONS Unknown [...]
--- OUTSIDE RECORDS SUMMARY | 2019-09-17 05:09 | XMS REPORT ---
Author Author Gisel EDMOND [facility] [place] Address [address] [place] [address] Care Team Providers Care Senior Sales Operations Manager Name Role Phone KANNAN EDMOND Unavailable PROBLEMS Type Condition ICD9-CM Code [id number] Code Onset Dates Condition S tatus SNOMED Code Problem History of goiter Z86.39 Active 37 58594 Problem History of hypokalemia Z86.39 Active 03293640 Problem Cerebral palsy G80.9 Active 86345 8000 Problem Elevated TSH R94.6 Active 7483338 05 Problem Hypothyroidism E03.9 Active 85028 008 Problem Essential hypertension I10 Active 03606545 ALLERGIES No Information ENCOUNTERS Encounter Location Date Diagnosis [place] [address] [address] Mar, [place] [address] [address] Feb, [place] [address] [address] Dec, History of UTI Z87.440 ; Hyp okalemia E87.6 ; BMI 45.0-49.9, adult Z68.42 and Hypothyroidism E03.9 [place] [address] [place] [id number] [address] [place] [address] November, Hypothyroidism E03.9 [place] [address] [place] [id number] [address] [place] [address] November, Essential hypertension I10 ; Hypothyroidism E03.9 ; History of hypokalemia Z86.39 and BMI 45.0-49.9, adult Z68.42 [place] [address] [place] [id number] [place] [address] November, [place] [address] [place] [id number] [place] [address] Jun, [facility] [address] [address] May, History of hypokalemia Z86.3 9 [facility] [address] [place] [id number] [address] [place] [address] 13 Apr, 2017 Hypothyroidism E03.9 [facility] [address] [place] [id number] [place] [address] 11 Apr, 2017 Essential hypertension I10 ; Hypothyroidism E03.9 ; Cerebral palsy G80.9 ; History of hypokalemia Z86.39 and History of goiter Z86.39 [facility] [address] [address] 19 Dec, 2016 Hypothyroidism E03.9 [facility] [address] [address] 19 Dec, 2016 Hypothyroidism, unspecified E03.9 [facility] [address] [address] 13 Dec, 2016 Morbid obesity due to excess calories E66.01 ; Essential hypertension I10 ; Cerebral palsy G80.9 and Hyperlipidemia, unspecified hyperlipidemia type E78.5 [facility] [address] [place] [id number] [place] [address] Oct, Hyperlipidemia, unspecified hyperlipidemia type E78.5 [facility] [address] [place] [id number] [address] [place] [address] May, Essential hypertension I10 ; Hypothyroidism E03.9 and Hyperlipidemia, unspecified hyperlipidemia type E78.5 [facility] [address] [place] [id number] [address] [place] [address] May, [facility] [address] [place] [id number] [address] [place] [address] May, [facility] [address] [place] [id number] [address] [place] [address] Feb, [facility] [address] [id number] [address] [place] [address] Feb, Essential hypertension I10 a nd Hypothyroidism E03.9 [facility] [address] [id number] [address] [place] [address] Jan, [facility] [address] [id number] [address] [place] [address] Jul, [facility] [address] [id number] [address] [place] [address] Jul, [facility] [address] [id number] [address] [place] [address] Jul, Essential hypertension I10 a nd Hypothyroidism E03.9 [facility] [address] [id number] [address] [place] [address] May, Hypothyroidism, unspecified E03.9 [facility] [address] [id number] [address] [place] [address] May, Essential hypertension I10 a nd Hypothyroidism E03.9 [facility] [address] [facility] [id number] [address] [place] [address] Feb, Routine general medical exam ination at [facility] V70.0 ; Essential hypertension, benign 401.1 and Unspecified hypothyroidism 244.9 [facility] [address] [id number] [address] [place] [address] Jan, [facility] [address] [id number] [address] [place] [address] November, [facility] [address] [id number] [address] [place] [address] November, Hypothyroid 244.9 and Essent ial hypertension, benign 401.1 [facility] [address] [id number] [address] [place] [address] Oct, [facility] [address] [facility] [id number] [address] [place] [address] Oct, [facility] [address] [id number] [address] [place] [address], [place] [address] Jun, [facility] [address] [id number] [address] [place] [address], [place] [address] Jun, [facility] [address] [id number] [address] [place] [address], [place] [address] May, [facility] [address] [id number] [address] [place] [address], [place] [address] May, [facility] [address] [id number] [address] [place] [address], [place] [address] May, [facility] [address] [id number] [address] [place] [address], [place] [address] May, [facility] [address] [id number] [address] [place] [address], [place] [address] May, [facility] [address] [id number] [address] [place] [address], [place] [address] May, [facility] [address] [id number] [address] [place] [address], [place] [address] Apr, [facility] [address] [id number] [address] [place] [address], [place] [address] Apr, [facility] [address] [id number] [address] [place] [address], [place] [address] Oct, [facility] [address] [id number] [address] [place] [address], [place] [address] Oct, [facility] [address] [id number] [address] [place] [address], [place] [address] Sep, [facility] [address] [id number] [address] [place] [address], [place] [address] Sep, [facility] [address] [id number] [address] [place] [address], [place] [address] Aug, [facility] [address] [id number] [address] [place] [address], [place] [address] 14 Aug, 2013 [facility] [address] [id number] [address] [place] [address], [place] [address] 17 Jun, 2013 [facility] [address] [id number] [address] [place] [address], [place] [address] Jun, [facility] [address] [id number] [address] [place] [address], [place] [address] May, [facility] [address] [id number] [address] [place] [address], [place] [address] May, [facility] [address] [id number] [address] [place] [address], [place] [address] 18 Mar, 2013 [facility] [address] [id number] [address] [place] [address], [place] [address] Jan, [facility] [address] [id number] [address] [place] [address], [place] [address] Dec, [facility] [address] [id number] [address] [place] [address], [place] [address] Oct, [facility] [address] [id number] [address] [place] [address], [place] [address] 29 Sep, 2012 [facility] [address] [id number] [address] [place] [address], [place] [address] Sep, [facility] [address] [id number] [address] [place] [address], [place] [address] 22 Sep, 2012 [facility] [address] [id number] [address] [place] [address], [place] [address] Sep, [facility] [address] [id number] [address] [place] [address], [place] [address] 13 Sep, 2012 [facility] [address] [id number] [address] [place] [address], [place] [address] Jun, [facility] [address] [id number] [address] [place] [address], [place] [address] Jun, [facility] [address] [id number] [address] [place] [address] Jun, [facility] [address] [id number] [address] [place] [address] Jun, [facility] [address] [id number] [address] [place] [address] Jun, [facility] [address] [id number] [address] [place] [address] Jun, [facility] [address] [id number] [address] [place] [address] Jun, [facility] [address] [id number] [address] [place] [address] Jun, [facility] [address] [id number] [address] [place] [address] Jun, [facility] [address] [id number] [address] [place] [address] Jun, IMMUNIZATIONS No Known Immunizations SOCIAL HISTORY Never Assessed REASON FOR VISIT PLAN OF CARE VITAL SIGNS MEDICATIONS Medication Instructions Dosage Frequency Start Date End Date Duration S tatus Potassium Chloride ER 10MEQ ER Orally Once a day 2 tablets with food 24h Jun, 30 days Active RESULTS No Results PROCEDURES [...]
--- OUTSIDE RECORDS SUMMARY | 2019-09-17 05:10 | XMS REPORT ---
Author Author Gisel VIGIL [facility] IN [facility] Address [address] [place] [address] Care Team Providers Care Lead Front End Developer Name Role Phone IVON VIGIL Unavailable PROBLEMS Type Condition ICD9-CM Code LFC83-IR Code Onset Dates Condition S tatus SNOMED Code Problem History of goiter Z86.39 Active 37 71275 Problem History of hypokalemia Z86.39 Active 44604957 Problem Cerebral palsy G80.9 Active 12054 8000 Problem Elevated TSH R94.6 Active 8633665 05 Problem Hypothyroidism E03.9 Active 30470 008 Problem Essential hypertension I10 Active [id number] ALLERGIES No Known Allergies ENCOUNTERS Encounter Location Date Diagnosis [place] [address] [address] Dec, History of UTI Z87.440 ; Hyp okalemia E87.6 ; BMI 45.0-49.9, adult Z68.42 and Hypothyroidism E03.9 [place] [address] [address] November, Hypothyroidism E03.9 [place] [address] [address] November, Essential hypertension I10 ; Hypothyroidism E03.9 ; History of hypokalemia Z86.39 and BMI 45.0-49.9, adult Z68.42 [place] [address] [address] November, [place] [address] [address] Jun, [place] [address] [address] May, History of hypokalemia Z86.3 9 [facility] [address] [facility] [id number] [address] [place] [address] 13 Apr, 2017 Hypothyroidism E03.9 [facility] [address] [facility] [id number] [address] [place] [address] 11 Apr, 2017 Essential hypertension I10 ; Hypothyroidism E03.9 ; Cerebral palsy G80.9 ; History of hypokalemia Z86.39 and History of goiter Z86.39 [facility] [address] [facility] [id number] [address] [place] [address] Dec, Hypothyroidism E03.9 [facility] [address] [facility] [id number] [address] [place] [address] Dec, Hypothyroidism, unspecified E03.9 [facility] [address] [place] [id number] [address] [place] [address] Dec, Morbid obesity due to excess calories E66.01 ; Essential hypertension I10 ; Cerebral palsy G80.9 and Hyperlipidemia, unspecified hyperlipidemia type E78.5 [facility] [address] [facility] [id number] [address] [place] [address] Oct, Hyperlipidemia, unspecified hyperlipidemia type E78.5 [facility] [address] [facility] [id number] [address] [place] [address] May, Essential hypertension I10 ; Hypothyroidism E03.9 and Hyperlipidemia, unspecified hyperlipidemia type E78.5 [facility] [address] [facility] [id number] [address] [place] [address] May, [facility] [address] [facility] [id number] [address] [place] [address] May, [facility] [address] [facility] [id number] [address] [place] [address] Feb, [facility] [address] [facility] [id number] [address] [place] [address] Feb, Essential hypertension I10 a nd Hypothyroidism E03.9 [facility] [address] [id number] [address] [place] [address] 14 Jan, 2016 [facility] [address] [id number] [address] [place] [address] Jul, [facility] [address] [id number] [address] [place] [address] Jul, [facility] [address] [facility] [id number] [address] [place] [address] Jul, Essential hypertension I10 a nd Hypothyroidism E03.9 [facility] [address] [id number] [address] [place] [address] May, Hypothyroidism, unspecified E03.9 [facility] [address] [facility] [id number] [address] [place] [address] May, Essential hypertension I10 a nd Hypothyroidism E03.9 [facility] [address] [facility] [id number] [address] [place] [address] Feb, Routine general medical exam ination at [facility] V70.0 ; Essential hypertension, benign 401.1 and Unspecified hypothyroidism 244.9 [facility] [address] [facility] [id number] [address] [place] [address] Jan, [facility] [address] [facility] [id number] [address] [place] [address] November, [facility] [address] [facility] [id number] [address] [place] [address] November, Hypothyroid 244.9 and Essent ial hypertension, benign 401.1 [facility] [address] [id number] [address] [place] [address] Oct, [facility] [address] [facility] [id number] [address] [place] [address] Oct, [facility] [address] [facility] [id number] [address] [place] [address] 08 Jun, 2014 [facility] [address] [facility] [id number] [address] [place] [address] Jun, [facility] [address] [id number] [address] [place] [address], [place] [address] May, [facility] [address] [id number] [address] [place] [address], [place] [address] May, [facility] [address] [id number] [address] [place] [address], [place] [address] May, [facility] [address] [id number] [address] [place] [address], [place] [address] May, [facility] [address] [id number] [address] [place] [address], [place] [address] May, [facility] [address] [id number] [address] [place] [address], [place] [address] May, [facility] [address] [id number] [address] [place] [address], [place] [address] Apr, [facility] [address] [id number] [address] [place] [address], [place] [address] Apr, [facility] [address] [id number] [address] [place] [address], [place] [address] Oct, [facility] [address] [id number] [address] [place] [address], [place] [address] Oct, [facility] [address] [id number] [address] [place] [address], [place] [address] Sep, [facility] [address] [id number] [address] [place] [address], [place] [address] Sep, [facility] [address] [id number] [address] [place] [address], [place] [address] Aug, [facility] [address] [id number] [address] [place] [address], [place] [address] Aug, [facility] [address] [id number] [address] [place] [address], [place] [address] Jun, [facility] [address] [id number] [address] [place] [address], [place] [address] 17 Jun, 2013 [facility] [address] [id number] [address] [place] [address], [place] [address] May, [facility] [address] [id number] [address] [place] [address], [place] [address] May, [facility] [address] [id number] [address] [place] [address], [place] [address] Mar, [facility] [address] [id number] [address] [place] [address], [place] [address] Jan, [facility] [address] [id number] [address] [place] [address], [place] [address] Dec, [facility] [address] [id number] [address] [place] [address], [place] [address] Oct, [facility] [address] [id number] [address] [place] [address], [place] [address] 29 Sep, 2012 [facility] [address] [id number] [address] [place] [address], [place] [address] Sep, [facility] [address] [id number] [address] [place] [address], [place] [address] 22 Sep, 2012 [facility] [address] [id number] [address] [place] [address], [place] [address] Sep, [facility] [address] [id number] [address] [place] [address], [place] [address] Sep, [facility] [address] [id number] [address] [place] [address], [place] [address] Jun, [facility] [address] [id number] [address] [place] [address], [place] [address] Jun, [facility] [address] [id number] [address] [place] [address], [place] [address] 18 Jun, 2012 [facility] [address] [id number] [address] [place] [address], [place] [address] Jun, [facility] [address] [facility] [id number] [address] [place] [address] Jun, [facility] [address] [facility] [id number] [address] [place] [address] Jun, [facility] [address] [facility] [id number] [address] [place] [address] Jun, [facility] [address] [facility] [id number] [address] [place] [address] Jun, [facility] [address] [facility] [id number] [address] [place] [address] Jun, [facility] [address] [facility] [id number] [address] [place] [phone] Jun, IMMUNIZATIONS No Known Immunizations SOCIAL HISTORY Never Assessed REASON FOR VISIT followup htn and thyroid- awoods, questions regarding medication rx PLAN OF CARE Activity Details Follow Up 4 Weeks, prn Reason:pending labs VITAL SIGNS Height 66 in 2017-11-25 Weight 290 lbs 2017-11-25 Temperature 98.2 degrees Fahrenheit 2017-11-25 Heart Rate 91 bpm 2017-11-25 Respiratory Rate 20 2017-11-25 BMI 46.80 kg/m2 2017-11-25 Blood pressure systolic 115 mmHg 2017-11-25 Blood pressure diastolic 75 mmHg 2017-11-25 MEDICATIONS Medication Instructions Dosage Frequency Start Date End Date Duration S tatus Co Q 10 100 MG Orally Once a day 1 capsule with a meal 24h Active Potassium 10 meq Orally daily 1 24h Feb, 30 da ys Active Levothyroxine Sodium 137 MCG Orally Once a day 1 tablet 24h 30 days Active Hydrochlorothiazide 25MG Orally Once a day 1 tablet 24h 90 days Active RESULTS No Results PROCEDURES Procedure Date Ordered Result Body Site LAB NOT BILLED BY [facility] November 25, 2017 INSTRUCTIONS MEDICATIONS ADMINISTERED No Known Medications MEDICAL [...]
--- OUTSIDE RECORDS SUMMARY | 2019-09-17 05:10 | XMS REPORT ---
Author Author Gisel VIGIL [facility] IN [facility] Address [address] [place] [address] Care Team Providers Care Internet Sales Associate Name Role Phone IVON VIGIL Unavailable PROBLEMS Type Condition ICD9-CM Code PPJ11-GM Code Onset Dates Condition S tatus SNOMED Code Problem History of goiter Z86.39 Active 37 63750 Problem History of hypokalemia Z86.39 Active 02899590 Problem Cerebral palsy G80.9 Active 06529 8000 Problem Elevated TSH R94.6 Active 5633539 05 Problem Hypothyroidism E03.9 Active 05209 008 Problem Essential hypertension I10 Active [id number] ALLERGIES No Information ENCOUNTERS Encounter Location Date Diagnosis [place] [address] [address] Dec, History of UTI Z87.440 ; Hyp okalemia E87.6 ; BMI 45.0-49.9, adult Z68.42 and Hypothyroidism E03.9 [place] [address] [address] November, Hypothyroidism E03.9 [place] [address] [address] [place] [id number] [address] [place] [address] November, Essential hypertension I10 ; Hypothyroidism E03.9 ; History of hypokalemia Z86.39 and BMI 45.0-49.9, adult Z68.42 [place] [address] [place] [id number] [address] [place] [address] November, [place] [address] [address] Jun, [place] [address] [place] [id number] [address] [place] [address] May, History of hypokalemia Z86.3 9 [facility] [address] [facility] [id number] [address] [place] [address] 13 Apr, 2017 Hypothyroidism E03.9 [facility] [address] [facility] [id number] [address] [place] [address] 11 Apr, 2017 Essential hypertension I10 ; Hypothyroidism E03.9 ; Cerebral palsy G80.9 ; History of hypokalemia Z86.39 and History of goiter Z86.39 [facility] [address] [facility] [id number] [address] [place] [address] Dec, Hypothyroidism E03.9 [facility] [address] [facility] [id number] [address] [place] [address] Dec, Hypothyroidism, unspecified E03.9 [facility] [address] [place] [id number] [address] [place] [address] Dec, Morbid obesity due to excess calories E66.01 ; Essential hypertension I10 ; Cerebral palsy G80.9 and Hyperlipidemia, unspecified hyperlipidemia type E78.5 [facility] [address] [facility] [id number] [address] [place] [address] Oct, Hyperlipidemia, unspecified hyperlipidemia type E78.5 [facility] [address] [facility] [id number] [address] [place] [address] May, Essential hypertension I10 ; Hypothyroidism E03.9 and Hyperlipidemia, unspecified hyperlipidemia type E78.5 [facility] [address] [facility] [id number] [address] [place] [address] May, [facility] [address] [facility] [id number] [address] [place] [address] May, [facility] [address] [facility] [id number] [address] [place] [address] Feb, [facility] [address] [facility] [id number] [address] [place] [address] Feb, Essential hypertension I10 a nd Hypothyroidism E03.9 [facility] [address] [id number] [address] [place] [address] 14 Jan, 2016 [facility] [address] [id number] [address] [place] [address] Jul, [facility] [address] [id number] [address] [place] [phone] Jul, [facility] [address] [id number] [address] [place] [address] Jul, Essential hypertension I10 a nd Hypothyroidism E03.9 [facility] [address] [id number] [address] [place] [address] May, Hypothyroidism, unspecified E03.9 [facility] [address] [id number] [address] [place] [address] May, Essential hypertension I10 a nd Hypothyroidism E03.9 [facility] [address] [facility] [id number] [address] [place] [address] Feb, Routine general medical exam ination at [facility] V70.0 ; Essential hypertension, benign 401.1 and Unspecified hypothyroidism 244.9 [facility] [address] [id number] [address] [place] [address] Jan, [facility] [address] [id number] [address] [place] [address] November, [facility] [address] [id number] [address] [place] [address] November, Hypothyroid 244.9 and Essent ial hypertension, benign 401.1 [facility] [address] [id number] [address] [place] [address] Oct, [facility] [address] [facility] [id number] [address] [place] [phone] Oct, [facility] [address] [facility] [id number] [address] [place] [address] 08 Jun, 2014 [facility] [address] [facility] [id number] [address] [place] [address] Jun, [facility] [address] [id number] [address] [place] [address], [place] [address] May, [facility] [address] [id number] [address] [place] [address], [place] [address] May, [facility] [address] [id number] [address] [place] [address], [place] [address] May, [facility] [address] [id number] [address] [place] [address], [place] [address] May, [facility] [address] [id number] [address] [place] [address], [place] [address] May, [facility] [address] [id number] [address] [place] [address], [place] [address] May, [facility] [address] [id number] [address] [place] [address], [place] [address] Apr, [facility] [address] [id number] [address] [place] [address], [place] [address] Apr, [facility] [address] [id number] [address] [place] [address], [place] [address] Oct, [facility] [address] [id number] [address] [place] [address], [place] [address] Oct, [facility] [address] [id number] [address] [place] [address], [place] [address] Sep, [facility] [address] [id number] [address] [place] [address], [place] [address] Sep, [facility] [address] [id number] [address] [place] [address], [place] [address] Aug, [facility] [address] [id number] [address] [place] [address], [place] [address] Aug, [facility] [address] [id number] [address] [place] [address], [place] [address] Jun, [facility] [address] [id number] [address] [place] [address], [place] [address] 17 Jun, 2013 [facility] [address] [id number] [address] [place] [address], [place] [address] May, [facility] [address] [id number] [address] [place] [address], [place] [address] May, [facility] [address] [id number] [address] [place] [address], [place] [address] Mar, [facility] [address] [id number] [address] [place] [address], [place] [address] Jan, [facility] [address] [id number] [address] [place] [address], [place] [address] Dec, [facility] [address] [id number] [address] [place] [address], [place] [address] Oct, [facility] [address] [id number] [address] [place] [address], [place] [address] 29 Sep, 2012 [facility] [address] [id number] [address] [place] [address], [place] [address] Sep, [facility] [address] [id number] [address] [place] [address], [place] [address] 22 Sep, 2012 [facility] [address] [id number] [address] [place] [address], [place] [address] Sep, [facility] [address] [id number] [address] [place] [address], [place] [address] Sep, [facility] [address] [id number] [address] [place] [address], [place] [address] Jun, [facility] [address] [id number] [address] [place] [address], [place] [address] Jun, [facility] [address] [id number] [address] [place] [address], [place] [address] 18 Jun, 2012 [facility] [address] [id number] [address] [place] [address], [place] [address] Jun, [facility] [address] [facility] [id number] [address] [place] [address] Jun, [facility] [address] [facility] [id number] [address] [place] [id number] Jun, [facility] [address] [facility] [id number] [address] [place] [address] Jun, [facility] [address] [facility] [id number] [address] [place] [id number] Jun, [facility] [address] [facility] [id number] [address] [place] [phone] Jun, [facility] [address] [facility] [id number] [address] [place] [id number] Jun, IMMUNIZATIONS No Known Immunizations SOCIAL HISTORY Never Assessed REASON FOR VISIT lab order PLAN OF CARE VITAL SIGNS MEDICATIONS No [...]
--- OUTSIDE RECORDS SUMMARY | 2019-09-17 05:10 | XMS REPORT | Continuity of Care Document ---
Author Organization Unknown Address Unknown Phone Unavailable Allergies Active Description Code Type Severity Reaction Onset Reported/Identified Relationship to Patient Clinical Status Yes NO KNOWN DRUG ALLERGIES UNKNOWN UNKNOWN Medications There is no data. Problems Date Dx Coded Attending Type Code Diagnosis Diagnosed By 06/14/2012 WES ROQUE MD 244.9 HYPOTHYROIDISM 06/14/2012 WES ROQUE MD 278.00 OBESITY 06/14/2012 WES ROQUE MD 401.1 ESSENTIAL HYPERTENSION BENIGN 06/14/2012 WES ROQUE MD V76.12 Mammogram Screening 06/14/2012 JEAN CARLOS SOTO MD 244.9 HYPOTHYROIDISM 06/14/2012 JEAN CARLOS SOTO MD 278.0 0 OBESITY 06/14/2012 JEAN CARLOS SOTO MD 401.1 ESSENTIAL HYPERTENSION BENIGN 06/14/2012 JEAN CARLOS SOTO MD V76.1 2 Mammogram Screening 06/14/2012 244.9 HYPO THYROIDISM 06/14/2012 278.00 OBESITY 06/14/2012 401.1 ESSE NTIAL HYPERTENSION BENIGN 06/14/2012 V76.12 Lang mogram Screening 06/14/2012 WES ROQUE MD 244.9 HYPOTHYROIDISM 06/14/2012 WES ROQUE MD 278.00 OBESITY 06/14/2012 WES ROQUE MD 401.1 ESSENTIAL HYPERTENSION BENIGN 06/14/2012 WES ROQUE MD V76.12 Mammogram Screening 06/14/2012 COONEY DO TIM K 244.9 HYPOTHYROIDISM 06/14/2012 COONEY DO, TIM K 278.00 OBESITY 06/14/2012 COONEY DO TIM K 401.1 ESSENTIAL HYPERTENSION BENIGN 06/14/2012 COONEY DO TIM K V76.12 Mammogram Screening 06/14/2012 COONEY DO, TIM K 244.9 HYPOTHYROIDISM 06/14/2012 COONEY DO, TIM K 278.00 OBESITY 06/14/2012 COONEY DO TIM K 401.1 ESSENTIAL HYPERTENSION BENIGN 06/14/2012 COONEY DO TIM K V76.12 Mammogram Screening 06/27/2012 BRITTANY KATZ, JEAN CARLOS 276.8 HYPOKALEMIA 06/27/2012 276.8 HYPO KALEMIA 06/27/2012 MYA KATZ, WES Pérez 276.8 HYPOKALEMIA 06/27/2012 COONEY BUTCH BRADYA K 276.8 HYPOKALEMIA 06/27/2012 COONEY DO TIM K 276.8 HYPOKALEMIA 10/30/2013 TIM COONEY DO K 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 10/30/2013 EROS BRADY TIM K V70.0 EXAM - ROUTINE H&P 10/30/2013 COONEY DO TIM K V76.10 BREAST CANCER SCREENING 10/30/2013 COONEY DO TIM K V76.51 COLON CANCER SCREENING 10/30/2013 BUTCH COONEY DOA K V82.81 SPECIAL SCREENING FOR OSTEOPOROSIS 10/30/2013 COONEY DO TIM K 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 10/30/2013 COONEY DO TIM K V70.0 EXAM - ROUTINE H&P 10/30/2013 BUTCH COONEY DOA K V76.10 BREAST CANCER SCREENING 10/30/2013 BUTCH COONEY DOA K V76.51 COLON CANCER SCREENING 10/30/2013 BUTCH COONEY DOA K V82.81 SPECIAL SCREENING FOR OSTEOPOROSIS 06/03/2014 BUTCH COONEY DOA K 704.00 ALOPECIA UNSPECIFIED 06/03/2014 TIM COONEY DO K 780.4 DIZZINESS AND VERTIGO 03/07/2019 LEISURE, LYNIETA W 240.9 GOITER, UNSPECIFIED 03/07/2019 LEISURE, LYNFELIA W E04.9 NONTOXIC GOITER, UNSPECIFIED Procedures Code Description [place] [address] ROUT INE VENIPUNCTURE 06/15/2012 23945 MAMM OGRAM, SCREENING 06/15/2012 21958 A1C (IN-HOUSE) 06/15/2012 69909 LIPI D PANEL 06/15/2012 37422 CBC 06/15/2012 71088 CMP 06/15/2012 [id number] GF R CALC (RESULT ONLY) 06/15/2012 63952 T4 06/16/2012 50036 TSH 06/16/2012 77461 T3 TOTAL 06/16/2012 91128 ROUT INE VENIPUNCTURE 06/27/2012 54334 BMP 06/27/2012 05759 MAGNESIUM 06/27/[id number] GF R CALC (RESULT ONLY) 06/27/2012 70245 ROUT INE VENIPUNCTURE 09/28/2012 92160 BMP 09/29/2012 01444 MAGNESIUM 09/29/[id number] GF R CALC (RESULT ONLY) 09/29/2012 84568 ROUT INE VENIPUNCTURE 06/03/2014 26960 CMP 06/03/2014 30639 LIPI D PANEL 06/03/2014 03520 TSH 06/03/2014 19384 CBC 06/03/2014 Results Test Result Range T4 FREE - 05/21/15 13:34 T4,Free(Direct) 0.62 ng/dL 0.82-1.77 VITAMIN D, 25-H - 04/20/17 12:53 Vitamin D, 25-Hydroxy 23.0 ng/mL 30.0-10 0.0 THYROID ANALYZER - 11/25/17 15:10 TSH 6.60 mIU/L 0.40-4.50 TSH - 12/29/17 11:33 TSH 3.85 mIU/L 0.40-4.50 CULTURE, URINE - 12/29/17 11:33 CULTURE, URINE, ROUTINE SEE NOTE NRG TSH w/ FREE T4 - 12/07/18 10:19 TSH 7.08 mIU/L 0.40-4.50 T4, FREE 1.0 ng/dL 0.8-1.8 TSH w/ FREE T4 - 04/04/19 10:55 TSH 0.22 mIU/L 0.40-4.50 T4, FREE 1.4 ng/dL 0.8-1.8 Encounters ACCT No. Visit Date/Time Discharge Status Pt. Type Provider Facility Loc./Unit Complaint [id number] 06/03/2014 09:52:00 06/03/2014 23:59: 59 CLS Outpatient TIM COONEY DO [id number] 10/30/2013 15:35:00 10/30/2013 23:59: 59 CLS Outpatient TIM COONEY DO [id number] 09/28/2012 16:49:00 09/28/2012 23:59: 59 CLS Outpatient WES ROQUE MD [id number] 06/27/2012 13:49:00 06/27/2012 23:59: 59 CLS Outpatient BRITTANY KATZ, JEAN CARLOS [id number] 06/15/2012 08:24:00 06/15/2012 23:59: 59 CLS Outpatient MYA KATZ, WES Pérez [id number] 06/14/2012 08:45:00 06/14/2012 23:59: 59 CLS Outpatient [id number] 06/14/2012 09:46:36 RECURRING [id number] 03/07/2019 12:13:00 03/07/2019 13:25: 00 DIS Outpatient [facility] [place] [facility] [place] [id number] 08/20/2019 13:20:00 08/20/2019 23:59:5 9 CLS Out[facility]EMMA [facility] [id number] 04/04/2019 10:40:00 Document Registration [id number] 12/07/2018 10:15:00 Document Registration [id number] 12/29/2017 11:00:00 Document Registration [id number] 11/25/2017 14:00:00 Document Registration [id number] 04/20/2017 12:00:00 Document Registration [id number] 05/21/2015 13:00:00 Document Registration
--- OUTSIDE RECORDS SUMMARY | 2019-09-17 05:10 | XMS REPORT ---
Author Author Gisel [facility] Address [address] [place] [address] Care Team Providers Care Hoisting Laborer Name Role Phone TOMMY MAYRA Unavailable PROBLEMS Type Condition ICD9-CM Code NNC77-CF Code Onset Dates Condition S tatus SNOMED Code Problem Abnormal thyroid ultrasound R93.8 Ac tive 778026622 Problem History of goiter Z86.39 Active 37 89887 Problem History of hypokalemia Z86.39 Active 83017264 Problem Obesity E66.9 Active 859575362 Problem Cerebral palsy G80.9 Active 97854 8000 Problem Hypothyroidism E03.9 Active 79484 008 Problem Essential hypertension I10 Active [id number] ALLERGIES No Known Allergies ENCOUNTERS Encounter Location Date Diagnosis [place] [address] [address] Jun, [place] [address] [address] May, History of hypokalemia Z86.3 9 [place] [address] [address] Apr, Hypothyroidism E03.9 [place] [address] [address] Apr, Essential hypertension I10 ; Hypothyroidism E03.9 ; Cerebral palsy G80.9 ; History of hypokalemia Z86.39 and History of goiter Z86.39 [place] [address] [address] Dec, Hypothyroidism E03.9 [place] [address] [address] Dec, Hypothyroidism, unspecified E03.9 [facility] [address] [id number] [address] [place] [phone] 13 Dec, 2016 Morbid obesity due to excess calories E66.01 ; Essential hypertension I10 ; Cerebral palsy G80.9 and Hyperlipidemia, unspecified hyperlipidemia type E78.5 [facility] [address] [id number] [address] [place] [phone] 06 Oct, 2016 Hyperlipidemia, unspecified hyperlipidemia type E78.5 [facility] [address] [id number] [address] [place] [phone] May, Essential hypertension I10 ; Hypothyroidism E03.9 and Hyperlipidemia, unspecified hyperlipidemia type E78.5 [facility] [address] [id number] [address] [place] [phone] May, [facility] [address] [facility] [id number] [address] [place] [phone] May, [facility] [address] [facility] [id number] [address] [place] [phone] Feb, [facility] [address] [facility] [id number] [address] [place] [phone] Feb, Essential hypertension I10 a nd Hypothyroidism E03.9 [facility] [address] [facility] [id number] [address] [place] [phone] Jan, [facility] [address] [id number] [address] [place] [phone] Jul, [facility] [address] [id number] [address] [place] [phone] Jul, [facility] [address] [id number] [address] [place] [phone] Jul, Essential hypertension I10 a nd Hypothyroidism E03.9 [facility] [address] [id number] [address] [place] [phone] 13 May, 2015 Hypothyroidism, unspecified E03.9 [facility] [address] [facility] [id number] [address] [place] [phone] May, Essential hypertension I10 a nd Hypothyroidism E03.9 [facility] [address] [id number] [address] [place] [phone] Feb, Routine general medical exam ination at [facility] V70.0 ; Essential hypertension, benign 401.1 and Unspecified hypothyroidism 244.9 [facility] [address] [id number] [address] [place] [phone] Jan, [facility] [address] [id number] [address] [place] [phone] November, [facility] [address] [id number] [address] [place] [phone] November, Hypothyroid 244.9 and Essent ial hypertension, benign 401.1 [facility] [address] [id number] [address] [place] [phone] Oct, [facility] [address] [id number] [address] [place] [phone] Oct, [facility] [address] [id number] [address] [place] [phone] Jun, [facility] [address] [id number] [address] [place] [phone] Jun, [facility] [address] [id number] [address] [place] [phone] May, [facility] [address] [id number] [address] [place] [phone] May, [facility] [address] [id number] [address] [place] [phone] May, [facility] [address] [id number] [address] [place] [phone] May, [facility] [address] [id number] [address] [place] [phone] May, [facility] [address] [id number] [address] [place] [phone] May, [facility] [address] [id number] [address] [place] [address], [place] [address] Apr, [facility] [address] [id number] [address] [place] [address], [place] [address] Apr, [facility] [address] [id number] [address] [place] [address], [place] [address] Oct, [facility] [address] [id number] [address] [place] [address], [place] [address] Oct, [facility] [address] [id number] [address] [place] [address], [place] [address] Sep, [facility] [address] [id number] [address] [place] [address], [place] [address] Sep, [facility] [address] [id number] [address] [place] [address], [place] [address] Aug, [facility] [address] [id number] [address] [place] [address], [place] [address] Aug, [facility] [address] [id number] [address] [place] [address], [place] [address] Jun, [facility] [address] [id number] [address] [place] [address], [place] [address] Jun, [facility] [address] [id number] [address] [place] [address], [place] [address] May, [facility] [address] [id number] [address] [place] [address], [place] [address] May, [facility] [address] [id number] [address] [place] [address], [place] [address] Mar, [facility] [address] [id number] [address] [place] [address], [place] [address] Jan, [facility] [address] [id number] [address] [place] [address], [place] [address] Dec, [facility] [address] [id number] [facility] [address] 03 Oct, 2012 [facility] [address] [id number] [address] [place] [address], [place] [address] 29 Sep, 2012 [facility] [address] [id number] [address] [place] [address], [place] [address] 25 Sep, 2012 [facility] [address] [id number] [address] [place] [address], [place] [address] 22 Sep, 2012 [facility] [address] [id number] [address] [place] [address], [place] [address] 21 Sep, 2012 [facility] [address] [id number] [address] [place] [address], [place] [address] 13 Sep, 2012 [facility] [address] [id number] [address] [place] [address], [place] [address] 19 Jun, 2012 [facility] [address] [id number] [address] [place] [address], [place] [address] Jun, [facility] [address] [id number] [address] [place] [address], [place] [address] 18 Jun, 2012 [facility] [address] [id number] [address] [place] [address], [place] [address] 18 Jun, 2012 [facility] [address] [id number] [address] [place] [address], [place] [address] 10 Jun, 2012 [facility] [address] [id number] [address] [place] [address], [place] [address] Jun, [facility] [address] [id number] [address] [place] [address], [place] [address] 06 Jun, 2012 [facility] [address] [id number] [address] [place] [address], [place] [address] Jun, [facility] [address] [id number] [address] [place] [address], [place] [address] 05 Jun, 2012 [facility] [address] [id number] [address] [place] [address], [place] [address] Jun, IMMUNIZATIONS No Known Immunizations SOCIAL HISTORY Never Assessed REASON FOR VISIT Transition of Care-Junito, Wants to go over her medications and make sure t hey are appriopriatley dosed PLAN OF CARE Activity Details Follow Up 3 months or as indicated by lab and us Reason:thyroid VITAL SIGNS Height 66 in 2017-04-20 Weight 278.1 lbs 2017-04-20 Temperature 98.2 degrees Fahrenheit 2017-04-20 Heart Rate 90 bpm 2017-04-20 Respiratory Rate 20 2017-04-20 BMI 44.88 kg/m2 2017-04-20 Blood pressure systolic 140 mmHg 2017-04-20 Blood pressure diastolic 88 mmHg 2017-04-20 MEDICATIONS Medication Instructions Dosage Frequency Start Date End Date Duration S tatus Co Q 10 100 MG Orally Once a day 1 capsule with a meal 24h Active Levothyroxine Sodium 150 MCG Orally every other day, alterna te with 137 mcg 1 tablet 30 Active Hydrochlorothiazide 25MG Orally Once a day 1 tablet 24h 90 Active Potassium 10 Orally qd 1 24h Feb, Acti ve Levothyroxine Sodium 137 MCG Orally every other day, alterna te with the 150 mcg 1 tablet Active RESULTS Name Result Date Reference Range VITAMIN B12 2017-04-20 Vitamin B12 761 211-946 TSH 2017-04-20 TSH 9.880 0.450-4.500 VITAMIN D, 25-H 2017-04-20 Vitamin D, 25-Hydroxy 23.0 30.0-100.0 CMP 2017-04-20 Glucose, Serum 113 65-99 BUN 14 6-24 Creatinine, Serum 0.81 0.57-1.00 eGFR If NonAfricn Am 81 >59 eGFR If Africn Am 93 >59 BUN/Creatinine Ratio 17 9-23 Sodium, Serum 141 134-144 Potassium, Serum 3.8 3.5-5.2 Chloride, Serum 98 96-106 Carbon Dioxide, Total 25 18-29 Calcium, Serum 9.9 8.7-10.2 Protein, Total, Serum 7.1 6.0-8.5 Albumin, Serum 4.3 3.5-5.5 Globulin, Total 2.8 1.5-4.5 A/G Ratio 1.5 1.2-2.2 Bilirubin, Total 0.6 0.0-1.2 Alkaline Phosphatase, S 86 39-117 AST (SGOT) 19 0-40 ALT (SGPT) 22 0-32 CMP 2017-04-20 Glucose, Serum 113 65-99 BUN 14 6-24 Creatinine, Serum 0.81 0.57-1.00 eGFR If NonAfricn Am 81 >59 eGFR If Africn Am 93 >59 BUN/Creatinine Ratio 17 9-23 Sodium, Serum 141 134-144 Potassium, Serum 3.8 3.5-5.2 Chloride, Serum 98 96-106 Carbon Dioxide, Total 25 18-29 Calcium, Serum 9.9 8.7-10.2 Protein, Total, Serum 7.1 6.0-8.5 Albumin, Serum 4.3 3.5-5.5 Globulin, Total 2.8 1.5-4.5 A/G Ratio 1.5 1.2-2.2 Bilirubin, Total 0.6 0.0-1.2 Alkaline Phosphatase, S 86 39-117 AST (SGOT) 19 0-40 ALT (SGPT) 22 0-32 VITAMIN B12 2017-04-20 Vitamin B12 761 211-946 TSH 2017-04-20 TSH 9.880 0.450-4.500 VITAMIN D, 25-H 2017-04-20 Vitamin D, 25-Hydroxy 23.0 30.0-100.0 Ultrasound : Thyroid 2017-04-27 PROCEDURES Procedure Date Ordered Result Body Site LAB NOT BILLED BY [facility] Apr 20, 2017 VENIPUNCT, ROUTINE* Apr 20, 2017 INSTRUCTIONS MEDICATIONS ADMINISTERED No Known Medications [...]
--- OUTSIDE RECORDS SUMMARY | 2019-09-17 05:10 | XMS REPORT ---
Author Author Gisel SANDERS Organization [facility] Address [address] [place] [address] Care Team Providers Care Pastry Decorator Name Role Phone TOMMY MAYRA Unavailable PROBLEMS Type Condition ICD9-CM Code ZSL77-ML Code Onset Dates Condition S tatus SNOMED Code Problem History of goiter Z86.39 Active 37 69100 Problem History of hypokalemia Z86.39 Active 68296278 Problem Cerebral palsy G80.9 Active 74949 8000 Problem Elevated TSH R94.6 Active 7527778 05 Problem Hypothyroidism E03.9 Active 38185 008 Problem Essential hypertension I10 Active [id number] ALLERGIES No Information ENCOUNTERS Encounter Location Date Diagnosis [place] [address] [address] Dec, History of UTI Z87.440 ; Hyp okalemia E87.6 ; Hypothyroidism E03.9 and BMI 45.0-49.9, adult Z68.42 [place] [address] [address] November, Hypothyroidism E03.9 [place] [address] [address] November, Essential hypertension I10 ; Hypothyroidism E03.9 ; History of hypokalemia Z86.39 and BMI 45.0-49.9, adult Z68.42 [place] [address] [address] November, [place] [address] [address] Jun, [place] [address] [address] May, History of hypokalemia Z86.3 9 [facility] [address] [facility] [id number] [address] [place] [id number] 13 Apr, 2017 Hypothyroidism E03.9 [facility] [address] [facility] [id number] [address] [place] [id number] 11 Apr, 2017 Essential hypertension I10 ; Hypothyroidism E03.9 ; Cerebral palsy G80.9 ; History of hypokalemia Z86.39 and History of goiter Z86.39 [facility] [address] [facility] [id number] [address] [place] [phone] Dec, Hypothyroidism E03.9 [facility] [address] [facility] [id number] [address] [place] [address] Dec, Hypothyroidism, unspecified E03.9 [facility] [address] [place] [id number] [address] [place] [address] Dec, Morbid obesity due to excess calories E66.01 ; Essential hypertension I10 ; Cerebral palsy G80.9 and Hyperlipidemia, unspecified hyperlipidemia type E78.5 [facility] [address] [facility] [id number] [address] [place] [address] Oct, Hyperlipidemia, unspecified hyperlipidemia type E78.5 [facility] [address] [facility] [id number] [address] [place] [address] May, Essential hypertension I10 ; Hypothyroidism E03.9 and Hyperlipidemia, unspecified hyperlipidemia type E78.5 [facility] [address] [facility] [id number] [address] [place] [phone] May, [facility] [address] [facility] [id number] [address] [place] [phone] May, [facility] [address] [facility] [id number] [address] [place] [id number] Feb, [facility] [address] [facility] [id number] [address] [place] [phone] Feb, Essential hypertension I10 a nd Hypothyroidism E03.9 [facility] [address] [id number] [address] [place] [phone] 14 Jan, 2016 [facility] [address] [id number] [address] [place] [phone] Jul, [facility] [address] [id number] [address] [place] [id number] Jul, [facility] [address] [facility] [id number] [address] [place] [phone] Jul, Essential hypertension I10 a nd Hypothyroidism E03.9 [facility] [address] [id number] [address] [place] [phone] May, Hypothyroidism, unspecified E03.9 [facility] [address] [facility] [id number] [address] [place] [phone] May, Essential hypertension I10 a nd Hypothyroidism E03.9 [facility] [address] [facility] [id number] [address] [place] [phone] Feb, Routine general medical exam ination at [facility] V70.0 ; Essential hypertension, benign 401.1 and Unspecified hypothyroidism 244.9 [facility] [address] [facility] [id number] [address] [place] [id number] Jan, [facility] [address] [facility] [id number] [address] [place] [phone] November, [facility] [address] [facility] [id number] [address] [place] [phone] November, Hypothyroid 244.9 and Essent ial hypertension, benign 401.1 [facility] [address] [id number] [address] [place] [phone] Oct, [facility] [address] [facility] [id number] [address] [place] [phone] Oct, [facility] [address] [facility] [id number] [address] [place] [phone] 08 Jun, 2014 [facility] [address] [facility] [id number] [address] [place] [address] Jun, [facility] [address] [id number] [address] [place] [address], [place] [address] May, [facility] [address] [id number] [address] [place] [address], [place] [address] May, [facility] [address] [id number] [address] [place] [address], [place] [address] May, [facility] [address] [id number] [address] [place] [address], [place] [address] May, [facility] [address] [id number] [address] [place] [address], [place] [address] May, [facility] [address] [id number] [address] [place] [address], [place] [address] May, [facility] [address] [id number] [address] [place] [address], [place] [address] Apr, [facility] [address] [id number] [address] [place] [address], [place] [address] Apr, [facility] [address] [id number] [address] [place] [address], [place] [address] Oct, [facility] [address] [id number] [address] [place] [address], [place] [address] Oct, [facility] [address] [id number] [address] [place] [address], [place] [address] Sep, [facility] [address] [id number] [address] [place] [address], [place] [address] Sep, [facility] [address] [id number] [address] [place] [address], [place] [address] Aug, [facility] [address] [id number] [address] [place] [address], [place] [address] 14 Aug, 2013 [facility] [address] [id number] [address] [place] [address], [place] [address] Jun, [facility] [address] [id number] [address] [place] [address], [place] [address] 17 Jun, 2013 [facility] [address] [id number] [address] [place] [address], [place] [address] May, [facility] [address] [id number] [address] [place] [address], [place] [address] May, [facility] [address] [id number] [address] [place] [address], [place] [address] Mar, [facility] [address] [id number] [address] [place] [address], [place] [address] Jan, [facility] [address] [id number] [address] [place] [address], [place] [address] Dec, [facility] [address] [id number] [address] [place] [address], [place] [address] Oct, [facility] [address] [id number] [address] [place] [address], [place] [address] Sep, [facility] [address] [id number] [address] [place] [address], [place] [address] Sep, [facility] [address] [id number] [address] [place] [address], [place] [address] Sep, [facility] [address] [id number] [address] [place] [address], [place] [address] Sep, [facility] [address] [id number] [address] [place] [address], [place] [address] Sep, [facility] [address] [id number] [address] [place] [address], [place] [address] Jun, [facility] [address] [id number] [address] [place] [address], [place] [address] Jun, [facility] [address] [id number] [address] [place] [address], [place] [address] Jun, [facility] [address] [id number] [address] [place] [address], [place] [address] Jun, [facility] [address] [facility] [id number] [address] [place] [phone] Jun, [facility] [address] [facility] [id number] [address] [place] [phone] Jun, [facility] [address] [facility] [id number] [address] [place] [address] Jun, [facility] [address] [facility] [id number] [address] [place] [id number] Jun, [facility] [address] [facility] [id number] [address] [place] [phone] Jun, [facility] [address] [facility] [id number] [address] [place] [phone] Jun, IMMUNIZATIONS No Known Immunizations SOCIAL HISTORY Never Assessed REASON FOR VISIT refill request PLAN OF CARE VITAL SIGNS MEDICATIONS No [...]
--- OUTSIDE RECORDS SUMMARY | 2019-09-17 05:10 | XMS REPORT ---
Author Author Gisel SANDERS [facility] Address [address] [place] [address] Care Team Providers Care Field Assistant Name Role Phone MAYRA SANDERS Unavailable PROBLEMS Type Condition ICD9-CM Code ICK05-LD Code Onset Dates Condition S tatus SNOMED Code Problem History of goiter Z86.39 Active 37 00177 Problem History of hypokalemia Z86.39 Active 26633084 Problem Cerebral palsy G80.9 Active 10555 8000 Problem Elevated TSH R94.6 Active 3781805 05 Problem Hypothyroidism E03.9 Active 84286 008 Problem Essential hypertension I10 Active [id number] ALLERGIES No Known Allergies ENCOUNTERS Encounter Location Date Diagnosis [place] [address] [address] Mar, [place] [address] [address] Feb, [place] [address] [address] Dec, History of UTI Z87.440 ; Hyp okalemia E87.6 ; Hypothyroidism E03.9 and BMI 45.0-49.9, adult Z68.42 [place] [address] [address] November, Hypothyroidism E03.9 [place] [address] [address] November, Essential hypertension I10 ; Hypothyroidism E03.9 ; History of hypokalemia Z86.39 and BMI 45.0-49.9, adult Z68.42 [place] [address] [address] November, [place] [address] [place] [id number] [address] [place] [address] Jun, [facility] [address] [address] May, History of hypokalemia Z86.3 9 [facility] [address] [place] [id number] [address] [place] [address] 13 Apr, 2017 Hypothyroidism E03.9 [facility] [address] [place] [id number] [place] [address] 11 Apr, 2017 Essential hypertension I10 ; Hypothyroidism E03.9 ; Cerebral palsy G80.9 ; History of hypokalemia Z86.39 and History of goiter Z86.39 [facility] [address] [address] 19 Dec, 2016 Hypothyroidism E03.9 [facility] [address] [address] 19 Dec, 2016 Hypothyroidism, unspecified E03.9 [facility] [address] [address] 13 Dec, 2016 Morbid obesity due to excess calories E66.01 ; Essential hypertension I10 ; Cerebral palsy G80.9 and Hyperlipidemia, unspecified hyperlipidemia type E78.5 [facility] [address] [place] [id number] [address] [place] [address] Oct, Hyperlipidemia, unspecified hyperlipidemia type E78.5 [facility] [address] [place] [id number] [address] [place] [address] May, Essential hypertension I10 ; Hypothyroidism E03.9 and Hyperlipidemia, unspecified hyperlipidemia type E78.5 [facility] [address] [place] [id number] [address] [place] [address] May, [facility] [address] [place] [id number] [address] [place] [id number] May, [facility] [address] [place] [id number] [address] [place] [address] Feb, [facility] [address] [id number] [address] [place] [address] Feb, Essential hypertension I10 a nd Hypothyroidism E03.9 [facility] [address] [id number] [address] [place] [address] Jan, [facility] [address] [id number] [address] [place] [address] Jul, [facility] [address] [id number] [address] [place] [id number] Jul, [facility] [address] [id number] [address] [place] [address] Jul, Essential hypertension I10 a nd Hypothyroidism E03.9 [facility] [address] [id number] [address] [place] [address] May, Hypothyroidism, unspecified E03.9 [facility] [address] [id number] [address] [place] [address] May, Essential hypertension I10 a nd Hypothyroidism E03.9 [facility] [address] [facility] [id number] [address] [place] [phone] Feb, Routine general medical exam ination at [facility] V70.0 ; Essential hypertension, benign 401.1 and Unspecified hypothyroidism 244.9 [facility] [address] [id number] [address] [place] [phone] Jan, [facility] [address] [id number] [address] [place] [address] November, [facility] [address] [id number] [address] [place] [address] November, Hypothyroid 244.9 and Essent ial hypertension, benign 401.1 [facility] [address] [id number] [address] [place] [address] Oct, [facility] [address] [facility] [id number] [address] [place] [address] Oct, [facility] [address] [id number] [address] [place] [address], [place] [address] Jun, [facility] [address] [id number] [address] [place] [address], [place] [address] Jun, [facility] [address] [id number] [address] [place] [address], [place] [address] May, [facility] [address] [id number] [address] [place] [address], [place] [address] May, [facility] [address] [id number] [address] [place] [address], [place] [address] May, [facility] [address] [id number] [address] [place] [address], [place] [address] May, [facility] [address] [id number] [address] [place] [address], [place] [address] May, [facility] [address] [id number] [address] [place] [address], [place] [address] May, [facility] [address] [id number] [address] [place] [address], [place] [address] Apr, [facility] [address] [id number] [address] [place] [address], [place] [address] Apr, [facility] [address] [id number] [address] [place] [address], [place] [address] Oct, [facility] [address] [id number] [address] [place] [address], [place] [address] Oct, [facility] [address] [id number] [address] [place] [address], [place] [address] Sep, [facility] [address] [id number] [address] [place] [address], [place] [address] Sep, [facility] [address] [id number] [address] [place] [address], [place] [address] Aug, [facility] [address] [id number] [address] [place] [address], [place] [address] 14 Aug, 2013 [facility] [address] [id number] [address] [place] [address], [place] [address] 17 Jun, 2013 [facility] [address] [id number] [address] [place] [address], [place] [address] Jun, [facility] [address] [id number] [address] [place] [address], [place] [address] May, [facility] [address] [id number] [address] [place] [address], [place] [address] May, [facility] [address] [id number] [address] [place] [address], [place] [address] 18 Mar, 2013 [facility] [address] [id number] [address] [place] [address], [place] [address] Jan, [facility] [address] [id number] [address] [place] [address], [place] [address] Dec, [facility] [address] [id number] [address] [place] [address], [place] [address] Oct, [facility] [address] [id number] [address] [place] [address], [place] [address] 29 Sep, 2012 [facility] [address] [id number] [address] [place] [address], [place] [address] Sep, [facility] [address] [id number] [address] [place] [address], [place] [address] 22 Sep, 2012 [facility] [address] [id number] [address] [place] [address], [place] [address] Sep, [facility] [address] [id number] [address] [place] [address], [place] [address] 13 Sep, 2012 [facility] [address] [id number] [address] [place] [address], [place] [address] Jun, [facility] [address] [id number] [address] [place] [address], [place] [address] Jun, [facility] [address] [id number] [address] [place] [phone] Jun, [facility] [address] [id number] [address] [place] [id number] Jun, [facility] [address] [id number] [address] [place] [id number] Jun, [facility] [address] [id number] [address] [place] [id number] Jun, [facility] [address] [id number] [address] [place] [id number] Jun, [facility] [address] [id number] [address] [place] [phone] Jun, [facility] [address] [id number] [address] [place] [id number] Jun, [facility] [address] [id number] [address] [place] [id number] Jun, IMMUNIZATIONS No Known Immunizations SOCIAL HISTORY Never Assessed REASON FOR VISIT hospital f/u per [facility]ON[facility] PLAN OF CARE Activity Details Follow Up if not improving with PCP or reg follow up Reason: VITAL SIGNS Height 66 in 2017-12-29 Weight 284.6 lbs 2017-12-29 Temperature 97.7 degrees Fahrenheit 2017-12-29 Heart Rate 96 bpm 2017-12-29 Respiratory Rate 20 2017-12-29 BMI 45.93 kg/m2 2017-12-29 Blood pressure systolic 146 mmHg 2017-12-29 Blood pressure diastolic 82 mmHg 2017-12-29 MEDICATIONS Medication Instructions Dosage Frequency Start Date End Date Duration S tatus Levothyroxine Sodium 137 MCG Orally Once a day 1 tablet 24h 30 days Active Potassium 10 meq Orally 2 times a day 1 12h Feb, Active Hydrochlorothiazide 25MG Orally Once a day 1 tablet 24h 90 days Active RESULTS No Results PROCEDURES Procedure Date Ordered Result Body Site URINALYSIS, AUTO, W/O SCOPE December 29, 2017 LAB NOT BILLED BY [facility] December 29, 2017 VENIPUNCT, ROUTINE* December 29, 2017 INSTRUCTIONS MEDICATIONS ADMINISTERED No Known Medications [...]
== END 2019-09-11 22:42 | disposition home or self-care (01) ==
LOC: EDUNIT# 21:05 → ER 21:07
DX: M27.2 Inflammatory conditions of jaws (principal); N39.0 Urinary tract infection, site not specified; Z86.69 Personal history of other diseases of the nervous system and sense organs
CPT/HCPCS: 36415; 80053; 81000; 84439; 84443; 85025; 87088

== ENCOUNTER 2022-07-02 23:34 | Emergency (ER) | payer MEDICAID ==
[~2022-07-02 23:34] MED LIST changes: +AMOX500C2 PO; -SULF1TAB35 PO; +SULF1TAB38 PO
[2022-07-03] MEDS ORDERED: LACTATED RINGERS 1,000 ML IV ONE (00:15)
[2022-07-03 00:50] LABS: BASOPHILS # (AUTO) 0.1 10^3/uL (0.0-0.1); BASOPHILS % (AUTO) 0 % (0-10); EOSINOPHILS # (AUTO) 0.1 10^3/uL (0.0-0.3); EOSINOPHILS % (AUTO) 1 % (0-10); HEMATOCRIT 41 % (35-52); HEMOGLOBIN 13.9 g/dL (11.5-16.0); LYMPHOCYTES # (AUTO) 1.3 10^3/uL (1.0-4.0); LYMPHOCYTES % (AUTO) 11 % (12-44); MEAN CORPUSCULAR HEMOGLOBIN 30 pg (25-34); MEAN CORPUSCULAR HGB CONC 34 g/dL (32-36); MEAN CORPUSCULAR VOLUME 89 fL (80-99); MEAN PLATELET VOLUME 10.3 fL (9.0-12.2); MONOCYTES % (AUTO) 9 % (0-12); NEUTROPHILS # (AUTO) 9.6 10^3/uL (1.8-7.8); NEUTROPHILS % (AUTO) 79 % (42-75); PLATELET COUNT 369 10^3/uL (130-400); WHITE BLOOD COUNT 12.1 10^3/uL (4.3-11.0)
[2022-07-03 01:02] LABS: POTASSIUM 3.5 MMOL/L (3.6-5.0)
[2022-07-03 01:04] LABS: CALCIUM 9.5 MG/DL (8.5-10.1)
[2022-07-03 01:05] LABS: TOTAL PROTEIN 7.5 GM/DL (6.4-8.2)
[2022-07-03 01:07] LABS: BILIRUBIN,TOTAL 1.1 MG/DL (0.1-1.0)
[2022-07-03 01:09] LABS: CREATININE SERUM 0.85 MG/DL (0.60-1.30)
[2022-07-03 01:34] LABS: BILIRUBIN,URINE NEGATIVE (NEGATIVE); CLARITY,URINE SL CLOUDY; COLOR,URINE YELLOW; GLUCOSE, URINE (UA) NEGATIVE (NEGATIVE); KETONES,URINE NEGATIVE (NEGATIVE); LEUKOCYTE ESTERASE ,URINE NEGATIVE (NEGATIVE); NITRITE,URINE NEGATIVE (NEGATIVE); PROTEIN,URINE NEGATIVE (NEGATIVE)
[2022-07-03 01:53] LABS: BACTERIA,URINE NEGATIVE /HPF; SQUAMOUS EPITHELIAL CELL,UR 0-2 /HPF
[2022-07-03] MEDS ORDERED: AZITHROMYCIN 250 MG TAB (ZITHROMAX) PO STA (03:24)
[2022-07-03] MEDS ORDERED: AZIT250T12 PO (03:28)
--- NOTE | 2022-07-03 03:28 | ED General ---
General Chief Complaint: Abdominal/GI Problems Stated Complaint: PAIN ON LEFT SIDE,COUGH Nursing Triage Note: TO ED VIA POV AND W/C TO ROOM 10 WITH C/O RIGHT SIDE FLANK/BACK PAIN AND COUGH. Source of Information: Patient Exam Limitations: No Limitations History of Present Illness Date Seen by Provider: Jul 02, 2022 Time Seen by Provider: 23:46 Initial Comments This 62-year-old woman presents to the emergency room with complaints of right lower back pain. She reports that a cough with "bronchitis" for about 3 weeks. She denies any urinary changes, vomiting, diarrhea, or constipation. She is rather short of breath but not hypoxic. She has cerebral palsy and an autoimmune thyroid disorder resulting in hypothyroidism. Allergies and Home Medications Allergies Coded Allergies: No Known Drug Allergies (Verified , 09/17/08) Patient Home Medication List Home Medication List Reviewed: Yes Amoxicillin (Amoxicillin) 500 Mg Capsule, 500 MG PO TID Prescribed by: RODRIGO CENTENO on 09/11/19 2200 Azithromycin (Azithromycin) 250 Mg Tablet, 250 MG PO DAILY Prescribed by: SINAN VILLEGAS on 07/03/22 0328 Hydrochlorothiazide (Hydrochlorothiazide) 25 Mg Tablet, 1 TAB PO UD, (Reported) Entered as Reported by: LINDA VARGAS on 10/10/16 2316 Levothyroxine Sodium (Levothroid) 50 Mcg Tab, (Reported) Entered as Reported by: YOANDY LARRY on 06/03/09 1419 Ondansetron (Zofran Odt) 4 Mg Tab.rapdis, 4 MG SL Q4H PRN for NAUSEA/VOMITING Prescribed by: SINAN VILLEGAS on 10/11/16 0141 Phenazopyridine HCl (Pyridium) 100 Mg Tablet, 100 MG PO Q8H Prescribed by: MELONY MALIK on 12/18/17 171 Sulfamethoxazole/Trimethoprim (Bactrim Ds Tablet) 1 Each Tablet, 1 EACH PO BID Prescribed by: MELONY MALIK on 12/18/171718 Sulfamethoxazole/Trimethoprim (Bactrim Ds Tablet) 1 Each Tablet, 1 EACH PO BID Prescribed by: ROMAN REYNOSO on 02/21/18 1814 Review of Systems Review of Systems Constitutional: no symptoms reported EENTM: no symptoms reported Respiratory: see HPI Cardiovascular: no symptoms reported Gastrointestinal: no symptoms reported Genitourinary: no symptoms reported Musculoskeletal: see HPI Skin: no symptoms reported Psychiatric/Neurological: No Symptoms Reported Hematologic/Lymphatic: No Symptoms Reported Past Kucnziq-Vrnotd-Dflmor Hx Patient Social History Tobacco Use?: No Use of E-Cig and/or Vaping dev: No Substance use?: No Alcohol Use?: Yes Alcohol Frequency: Rarely Immunizations Up To Date Influenza Vaccine Up-to-Date: No; Not Current Seasonal Allergies Seasonal Allergies: No Past Medical History Surgeries: Yes (RIGHT ANKLE) Orthopedic, Thyroidectomy Respiratory: No Cardiac: Yes Chronic Edema/Swelling Neurological: Yes Cerebral Palsy Reproductive Disorders: No Genitourinary: Yes (occas urine incontinence hx) UTI-Chronic Gastrointestinal: No Musculoskeletal: Yes (CEREBRAL PALSY) Endocrine: Yes Hypothyroidsim HEENT: No Cancer: No Psychosocial: No Integumentary: No Blood Disorders: No Physical Exam Vital Signs Vital Signs - First Documented 07/03/22 00:05 Temp 36.7 Pulse 110 Resp 20 B/P (MAP) 167/123 (138) Pulse Ox 96 O2 Delivery Room Air Capillary Refill : Less Than 3 Seconds Height, Weight, BMI Height: 5'7.00" Weight: 280lbs. oz. 127.234158xj; 38.00 BMI Method:Stated General Appearance: WD/WN, Mild Distress, Obese HEENT: Normal ENT Inspection, Pharynx Normal Neck: Normal Inspection Respiratory: Lungs Clear, Normal Breath Sounds, No Accessory Muscle Use Cardiovascular: Regular Rate, Rhythm, No Murmur, Other (Lower extremity edema) Gastrointestinal: Non Tender, Soft Back: Normal Inspection, No CVA Tenderness, No Vertebral Tenderness Extremity: Normal Inspection, No Pedal Edema Neurologic/Psychiatric: Alert, Oriented x3, No Motor/Sensory Deficits, Normal Mood/Affect Skin: Normal Color, Warm/Dry Progress/Results/Core Measures Suspected Sepsis SIRS Temperature: Pulse: 110 Respiratory Rate: 20 Laboratory Tests 07/03/22 00:38: White Blood Count 12.1H Blood Pressure 167 /123 Mean: 138 Laboratory Tests 07/03/22 00:38: Creatinine 0.85, Platelet Count 369, Total Bilirubin 1.1H Results/Orders Lab Results Laboratory Tests Test 07/02/22 00:13 07/03/22 00:38 07/03/22 01:28 Range/Units Influenza Type A (RT-PCR) Not Detected Not Detecte Influenza Type B (RT-PCR) Not Detected Not Detecte SARS-CoV-2 RNA (RT-PCR) Not Detected Not Detecte White Blood Count 12.1 H 4.3-11.0 10^3/uL Red Blood Count 4.59 3.80-5.11 10^6/uL Hemoglobin 13.9 11.5-16.0 g/dL Hematocrit 41 35-52 % Mean Corpuscular Volume 89 80-99 fL Mean Corpuscular Hemoglobin 30 25-34 pg Mean Corpuscular Hemoglobin Concent 34 32-36 g/dL Red Cell Distribution Width 12.3 10.0-14.5 % Platelet Count 369 130-400 10^3/uL Mean Platelet Volume 10.3 9.0-12.2 fL Immature Granulocyte % (Auto) 1 % Neutrophils (%) (Auto) 79 H 42-75 % Lymphocytes (%) (Auto) 11 L 12-44 % Monocytes (%) (Auto) 9 0-12 % Eosinophils (%) (Auto) 1 0-10 % Basophils (%) (Auto) 0 0-10 % Neutrophils # (Auto) 9.6 H 1.8-7.8 10^3/uL Lymphocytes # (Auto) 1.3 1.0-4.0 10^3/uL Monocytes # (Auto) 1.0 0.0-1.0 10^3/uL Eosinophils # (Auto) 0.1 0.0-0.3 10^3/uL Basophils # (Auto) 0.1 0.0-0.1 10^3/uL Immature Granulocyte # (Auto) 0.1 0.0-0.1 10^3/uL Sodium Level 138 135-145 MMOL/L Potassium Level 3.5 L 3.6-5.0 MMOL/L Chloride Level 104 98-107 MMOL/L Carbon Dioxide Level 20 L 21-32 MMOL/L Anion Gap 14 5-14 MMOL/L Blood Urea Nitrogen 8 7-18 MG/DL Creatinine 0.85 0.60-1.30 MG/DL Estimat Glomerular Filtration Rate 77 BUN/Creatinine Ratio 9 Glucose Level 112 H 70-105 MG/DL Calcium Level 9.5 8.5-10.1 MG/DL Corrected Calcium 9.5 8.5-10.1 MG/DL Total Bilirubin 1.1 H 0.1-1.0 MG/DL Aspartate Amino Transf (AST/SGOT) 19 5-34 U/L Alanine Aminotransferase (ALT/SGPT) 26 0-55 U/L Alkaline Phosphatase 87 40-136 U/L C-Reactive Protein High Sensitivity 10.86 H 0.00-0.50 MG/DL B-Type Natriuretic Peptide 15.0 <100.0 PG/ML Total Protein 7.5 6.4-8.2 GM/DL Albumin 4.0 3.2-4.5 GM/DL Urine Color YELLOW Urine Clarity SL CLOUDY Urine pH 6.0 5-9 Urine Specific Boomer 1.010 L 1.016-1.022 Urine Protein NEGATIVE NEGATIVE Urine Glucose (UA) NEGATIVE NEGATIVE Urine Ketones NEGATIVE NEGATIVE Urine Nitrite NEGATIVE NEGATIVE Urine Bilirubin NEGATIVE NEGATIVE Urine Urobilinogen 0.2 < = 1.0 MG/DL Urine Leukocyte Esterase NEGATIVE NEGATIVE Urine RBC (Auto) NEGATIVE NEGATIVE Urine RBC NONE /HPF Urine WBC NONE /HPF Urine Squamous Epithelial Cells 0-2 /HPF Urine Crystals NONE /LPF Urine Bacteria NEGATIVE /HPF Urine Casts NONE /LPF Urine Mucus NEGATIVE /LPF Urine Culture Indicated NO My Orders Orders - SINAN DE LA VEGA MD Covid 19 Inhouse Test (07/02/22 23:46) Influenza A And B By Pcr (07/02/22 23:46) Cbc With Automated Diff (07/03/22 00:15) Comprehensive Metabolic Panel (07/03/22 00:15) Hs C Reactive Protein (07/03/22 00:15) Ua Culture If Indicated (07/03/22 00:15) Ed Iv/Invasive Line Start (07/03/22 00:15) Lactated Ringers (Lr 1000 Ml Iv Solution (07/03/22 00:15) Chest 1 View, Ap/Pa Only (07/03/22 00:15) Monitor-Rhythm Ecg Trace Only (07/03/22 00:15) Straight Cath For Spec.-Adult (07/03/22 01:31) Azithromycin Tablet (Zithromax Tablet) (07/03/22 03:24) Bnp [facility] (07/03/22 03:29) Medications Given in ED Current Medications Medications Dose Ordered Sig/Radha Route Start Time Stop Time Status Last Admin Dose Admin Lactated Ringer's 1,000 ml @ 0 mls/hr Q0M ONCE IV 07/03/22 00:15 07/03/22 00:17 DC 07/03/22 00:39 999 MLS/HR Vital Signs/I&O 07/03/22 07/03/22 07/03/22 00:05 00:05 03:38 Temp 36.7 36.7 Pulse 110 109 Resp 20 18 B/P (MAP) 167/123 (138) 156/102 Pulse Ox 96 98 O2 Delivery Room Air Room Air Room Air Capillary Refill : Less Than 3 Seconds Blood Pressure Mean: 138 Progress Note : Progress Note Patient did not require pain medication. Tachycardia improved with a liter of IV fluid. Chest x-ray was relatively unremarkable. I did have some concern for elevated CRP and WBC. Further evaluation with a CT scan was offered. Patient declined and we discussed empiric treatment with antibiotics as there was suspic ion for perhaps a right lower lung occult pneumonia. Azithromycin was started in the ER. See discharge instructions for further discussion. Diagnostic Imaging Diagonstic Imaging: Xray Plain Films/CT/US/NM/MRI: chest Comments Chest x-ray viewed by me. Report reviewed. Congestive failure does not correlate with a normal BNP. Report below: [facility] REC#: [id number] PT STATUS: DEP ER : 1960 PHYSICIAN: SINAN DE LA VEGA MD ADMIT DATE: 07/02/22/ER Draft Date of Exam:07/03/22 CHEST 1 VIEW, AP/PA ONLY INDICATION: SOA, Tachycardia. TECHNIQUE: Single view chest 12 7:00 AM. CORRELATION STUDY: 10/11/2016 FINDINGS: Heart size, mediastinum, and vasculature are enlarged and prominent, appearing increased from prior. The lungs are clear with no consolidating infiltrate. There is no significant effusion or pneumothorax. IMPRESSION: 1. Findings favor probable congestive heart failure/edema. Appearing changed from prior. May be accentuated by limited depth of inspiration and technique. Follow-up imaging if clinically warranted. Dictated on workstation # [id number] Dict: 07/03/22719 Trans: 07/03/22 0731 KETURAH [id number] Interpreted by: MIO THOMPSON DO Departure Impression Primary Impression: Low back pain Qualified Codes: M54.50 - Low back pain, unspecified Additional Impressions: Cough Qualified Codes: R05.1 - Acute cough Dyspnea Qualified Codes: R06.00 - Dyspnea, unspecified Disposition: HOME, SELF-CARE Condition: Improved Departure-Patient Inst. Decision time for Depature: 03:26 Referrals: NO,LOCAL PHYSICIAN (PCP/Family) Primary Care Physician Patient Instructions: Cough, Adult ED, Low Back Pain ED Add. Discharge Instructions: Drink plenty of clear liquids to stay well-hydrated. Start your azithromycin prescription on July 04. Contact your primary care provider on Tuesday for follow-up appointment for re evaluation. In the meantime, return to the emergency room if you are having worsening symptoms. All discharge instructions reviewed with patient and/or family. Voiced understanding. Scripts Azithromycin (Azithromycin) 250 Mg Tablet 250 MG PO DAILY, #4 TAB 0 Refills Start July 04 Prov: SINAN DE LA VEGA MD 07/03/22 SINAN DE LA VEGA MD Jul 03, 2022 03:28
[2022-07-03 03:38] VITALS: BP 156/102
--- NOTE | 2022-07-03 07:32 | Diagnostic Imaging Report ---
INDICATION: SOA, Tachycardia. TECHNIQUE: Single view chest 12 7:00 AM. CORRELATION STUDY: 10/11/2016 FINDINGS: Heart size, mediastinum, and vasculature are enlarged and prominent, appearing increased from prior. The lungs are clear with no consolidating infiltrate. There is no significant effusion or pneumothorax. IMPRESSION: 1. Findings favor probable congestive heart failure/edema. Appearing changed from prior. May be accentuated by limited depth of inspiration and technique. Follow-up imaging if clinically warranted. Dictated by: Dictated on workstation # [id number]
== END 2022-07-03 03:38 | disposition home or self-care (01) ==
LOC: EDUNIT# 23:34 → ER 23:39
DX: M54.50 Low back pain, unspecified (principal); R05.9 Cough, unspecified; R06.00 Dyspnea, unspecified; Z20.822 Contact with and (suspected) exposure to COVID-19
CPT/HCPCS: 36415; 51701; 71045; 80053; 81000; 83880; 85025; 86141; 87636; 93041

== ENCOUNTER → 2023-01-14 | Outpatient (CLI) | payer MEDICAID ==
[~2023-01-14] MED LIST changes: +AZIT250T12 PO
--- NOTE | 2023-01-14 12:36 | Diagnostic Imaging Report ---
Indication: Routine screening. No prior mammograms are available for comparison. 2-D and 3-D bilateral screening mammography was performed with CAD. Both breasts are heterogeneously dense, limiting the sensitivity of mammography. There is a density projected lateral to the nipple at anterior depth on the CC view of the right breast. No definite correlate on the MLO view is seen but additional views are recommended. Left breast is unremarkable. No malignant-appearing microcalcifications are seen. Axillae are unremarkable. IMPRESSION: BI-RADS 0 Right breast density. Additional views are recommended for further evaluation. ACR BI-RADS Category 0: Incomplete. (Needs additional imaging evaluation). Result letter will be mailed to the patient. Note: At least 10% of breast cancer is not imaged by mammography. Dictated by: Dictated on workstation # [id number]
== END ==
LOC: RAD 09:55
PROVIDERS: ATTEND Internal Medicine
DX: Z12.31 Encounter for screening mammogram for malignant neoplasm of breast (principal)
CPT/HCPCS: 77063; 77067